=== PATIENT | female | born 1955 | race Caucasian/White ===

== ENCOUNTER 2020-02-04 13:15 | Outpatient (REF) | payer MEDICARE, SELFPAY ==
--- NOTE | 2020-02-04 | XR_ITS ---
EXAMINATION: XR CHEST CLINICAL INFORMATION: Shortness of breath COMPARISON: Chest radiographs 04/05/2017, 06/25/2012 TECHNIQUE: 2 views of the chest were obtained. FINDINGS: There is hyperinflation/COPD. The lungs are clear. There is no airspace consolidation, vascular congestion, groundglass opacity, or effusion. The costophrenic sulci are clear. The heart is normal in size. The hilar and mediastinal contours are normal. No acute bony abnormality. XR/XR chest 2V IMPRESSION: Hyperinflation/COPD. Lungs clear.
[2020-02-04 16:46] LABS: MANUAL DIFF FLAG NO
[2020-02-04 16:52] LABS: Basophils Percent Auto 0.5 % (0-2); Eosinophils Absolute Auto 0.1 X10*3/uL (0.0-0.4); Eosinophils Percent Auto 1.3 % (0-4); Hematocrit 40.1 % (37-47); Hemoglobin 12.8 g/dl (12.0-16.0); Imm Gran Abs Auto 0.02 X10*3/uL (0.00-0.03); Imm Gran Pct Auto 0.3 % (0.0-0.4); Lymphocytes Absolute Auto 1.5 X10*3/uL (1.2-4.9); Lymphocytes Percent Auto 20.2 % (20-40); Mean Corpuscular HGB Conc 31.9 g/dl (31.0-35.0); Mean Corpuscular Volume 100.3 fL (80-98); Mean Platelet Volume 10.4 fL (9.4-12.3); Monocytes Absolute Auto 0.9 X10*3/uL (0.1-1.2); Monocytes Percent Auto 11.6 % (2-11); Neutrophils Absolute Auto 4.9 X10*3/uL (2.0-8.3); Neutrophils Percent Auto 66.1 % (45-73); Platelet Count 358 X10*3/uL (160-400); Red Cell Distribution Width 13.3 % (11.0-16.0); White Blood Count 7.5 X10*3/uL (4.8-10.8)
[2020-02-04 17:18] LABS: Alanine Aminotransferase 17 U/L (0-31); Albumin Level 4.4 g/dL (3.5-5.0); Alkaline Phosphatase 76 U/L (39-117); Anion Gap 13 (12-20); Aspartate Amino Transferase 20 U/L (5-31); Bilirubin Total 0.3 mg/dL (0.0-1.0); Blood Urea Nitrogen 14 mg/dL (9-16); C Reactive Protein 0.04 mg/dL (< or = 0.50); Calcium 9.1 mg/dL (8.4-10.2); Carbon Dioxide 26 mmol/L (22-29); Chloride 101 mmol/L (96-108); Estimated Glomerular Filt Rate > 60; Glucose Random 73 mg/dL (60-115); Potassium 4.7 mmol/l (3.3-5.1); Sodium 135 mmol/L (135-145); Total Protein 6.7 g/dL (6.5-8.0)
[2020-02-04 17:21] LABS: Glucose Urine UA NEG (NEG); Leukocyte Esterase Urine NEG (NEG); Nitrite Urine NEG (NEG); PH 5.5 (5.0-8.0); Specific Gravity - Urine 1.025 (1.005-1.025); Urine Blood NEG (NEG); Urine Ketones NEG (NEG); Urine Protein NEG (NEG-TRACE)
[2020-02-04 17:27] LABS: Appearance Urine CLEAR; Color Urine YELLOW
== END 2020-02-04 13:16 | disposition home or self-care (01) ==
LOC: HO.HMGCLDS 13:15
PROVIDERS: PCP Internal Medicine; Visit Provider Internal Medicine
DX: R06.02 Shortness of breath (principal); Z86.2 Personal history of diseases of the blood and blood-forming organs and certain disorders involving the immune mechanism
CPT/HCPCS: 36415; 71046; 80053; 81003; 85025; 86140

== ENCOUNTER 2020-02-06 16:31 | Outpatient (REF) | payer MEDICARE, SELFPAY | END 2020-02-06 16:32 | disposition home or self-care (01) | LOC: HO.LNP 16:31 | PROVIDERS: Visit Provider Internal Medicine | DX: Z20.828 Contact with and (suspected) exposure to other viral communicable diseases (principal) | CPT/HCPCS: U0003 ==

== ENCOUNTER 2020-06-30 09:08 | Outpatient (REF) | payer MEDICARE, SELFPAY ==
[2020-06-30 11:17] LABS: MANUAL DIFF FLAG NO
[2020-06-30 11:24] LABS: Basophils Absolute Auto 0.1 X10*3/uL (0.0-0.2); Eosinophils Absolute Auto 0.1 X10*3/uL (0.0-0.4); Eosinophils Percent Auto 1.3 % (0-4); Hematocrit 40.6 % (37-47); Imm Gran Abs Auto 0.02 X10*3/uL (0.00-0.03); Imm Gran Pct Auto 0.3 % (0.0-0.4); Lymphocytes Absolute Auto 1.2 X10*3/uL (1.2-4.9); Lymphocytes Percent Auto 19.4 % (20-40); Mean Platelet Volume 10.5 fL (9.4-12.3); Monocytes Absolute Auto 0.6 X10*3/uL (0.1-1.2); Monocytes Percent Auto 9.2 % (2-11); Neutrophils Absolute Auto 4.2 X10*3/uL (2.0-8.3); Neutrophils Percent Auto 68.8 % (45-73); Platelet Count 350 X10*3/uL (160-400); Red Blood Count 4.06 X10*6/uL (4.20-5.50); Red Cell Distribution Width 13.5 % (11.0-16.0); White Blood Count 6.2 X10*3/uL (4.8-10.8)
[2020-06-30 11:53] LABS: Alanine Aminotransferase 19 U/L (0-31); Albumin Level 4.3 g/dL (3.5-5.0); Alkaline Phosphatase 79 U/L (39-117); Anion Gap 13 (12-20); Aspartate Amino Transferase 18 U/L (5-31); Bilirubin Total 0.6 mg/dL (0.0-1.0); Blood Urea Nitrogen 16 mg/dL (9-16); Calcium 9.7 mg/dL (8.4-10.2); Carbon Dioxide 26 mmol/L (22-29); Chloride 102 mmol/L (96-108); Cholesterol 217 mg/dL; Estimated Glomerular Filt Rate > 60; Glucose Fasting 85 mg/dL (60-99); HDL Cholesterol 80 mg/dL; LDL Cholesterol Calculated 123 mg/dl; Potassium 5.4 mmol/L (3.3-5.1); Sodium 136 mmol/L (135-145); Total Protein 6.7 g/dL (6.5-8.0); Triglycerides 70 mg/dL
[2020-06-30 12:18] LABS: TSH reflex Free T4 0.55 uIU/mL (0.32-4.0); Vitamin D 25-OH Total 11.4 ng/mL (>30)
[2020-06-30 12:37] LABS: Folate 9.3 ng/mL (> or = 4.0); Vitamin B12 331 pg/mL (200-900)
== END 2020-06-30 09:09 | disposition home or self-care (01) ==
LOC: HO.HMGCLDS 09:08
PROVIDERS: PCP Internal Medicine; Visit Provider Internal Medicine
DX: F32.9 Major depressive disorder, single episode, unspecified (principal); L65.9 Nonscarring hair loss, unspecified; R06.02 Shortness of breath; R53.83 Other fatigue; Z78.0 Asymptomatic menopausal state
CPT/HCPCS: 36415; 80053; 80061; 82306; 82607; 82746; 84443; 85025

== ENCOUNTER 2020-07-05 09:25 | Outpatient (REF) | payer MEDICARE, SELFPAY ==
[2020-07-05 11:53] LABS: Potassium 5.3 mmol/L (3.3-5.1)
== END 2020-07-05 09:26 | disposition home or self-care (01) ==
LOC: HO.HMGCLDS 09:25
PROVIDERS: PCP Internal Medicine; Visit Provider Internal Medicine
DX: E87.5 Hyperkalemia (principal)
CPT/HCPCS: 36415; 84132

== ENCOUNTER → 2020-07-14 09:14 | Outpatient (BNVA) | payer MEDICARE, SELFPAY | PROVIDERS: PCP Internal Medicine; Visit Provider Internal Medicine | DX: R06.02 Shortness of breath (principal) | CPT/HCPCS: 99202 ==

== ENCOUNTER 2020-07-21 09:10 | Outpatient (REF) | payer MEDICARE, SELFPAY ==
[2020-07-21 11:45] LABS: Potassium 4.7 mmol/L (3.3-5.1)
== END 2020-07-21 09:11 | disposition home or self-care (01) ==
LOC: HO.HMGCLDS 09:10
PROVIDERS: PCP Internal Medicine; Visit Provider Internal Medicine
DX: E87.5 Hyperkalemia (principal)
CPT/HCPCS: 36415; 84132

== ENCOUNTER → 2020-07-22 08:47 | Outpatient (REF) | payer MEDICARE, SELFPAY ==
--- NOTE | ~2020-07-22 | NM_ITS ---
EXERCISE MYOCARDIAL PERFUSION STUDY INDICATION: Shortness of breath, assess for coronary disease and ischemia TECHNIQUE: The patient was brought in for an exercise perfusion study on 07/22/2020. Patient performed exercise as per [facility] protocol and was injected 25 mCi of sestamibi once target heart rate was achieved. Images were obtained using the SPECT gamma camera interlaced with the gating device. Images were obtained in supine position. Resting perfusion study was performed on 07/25/2020. Patient was administered 25 mCi of sestamibi intravenously at rest. Images were then obtained in supine position. Total DLP 72mGy-cm. Images were processed with the software and compared side to side in short axis, horizontal long axis and vertical long axis views. FINDINGS: Raw images were reviewed. The stress perfusion study showed no significant perfusion abnormality. Both uncorrected as well as CT attenuation corrected images were reviewed. The gated study shows normal LV systolic function with calculated LVEF of > 70%. LV cavity is normal in size. The gated study shows normal wall thickening and contraction of segments. Resting study shows no significant perfusion abnormality. Gating at rest reveals normal wall motion with ejection fraction at 60%. The findings are consistent with no reversible or fixed perfusion abnormality. NM/NM cardiolite stress test IMPRESSION: 1. Myocardial perfusion imaging study shows normal myocardial perfusion. No evidence of any ischemia or infarction. 2. Gated LVEF is > 70% during stress and 60% during rest. 3. Transient ischemic dilatation not present. EKG component of the test reported separately.
--- NOTE | 2020-07-22 08:51 | CA_ITS ---
Acquisition Time: 2020-07-22 09:01:21 Total Exercise Time: 00:08:03 Test Indications: Dyspnea Medications: BUPROPION FLUOXETINE Protocol: LD Max HR: 133 BPM 86% of Pred: 153 BPM Max BP: 144/078 mmHG Max Work Load: 10.1 METS Exercise stress test using Ld protocol, total of 8 min 3 sec, METS 10.10, TAPHR up to 85%. Pt tolerated well, denies any anginal sx, EKG without any arrhythmias, no ischemic changes seen during exercise or in recovery period. Nuclear images to follow. Normotensive response to exercsie Test reviewed with Dr. Tellez. Referred By: Jesús Frazier Overread By: Elayne Patel NP
== END ==
LOC: HO.CARD 08:47
PROVIDERS: PCP Internal Medicine; Visit Provider Internal Medicine
DX: R06.02 Shortness of breath (principal)
CPT/HCPCS: 78452; 93016; 93017; 93018; A9500

== ENCOUNTER → 2020-08-27 09:29 | Outpatient (REF) | payer MEDICARE, SELFPAY ==
--- NOTE | 2020-08-27 09:31 | CA_ITS ---
Transthoracic Echocardiogram Patient (Last, First, Middle): Francoise Anyaa M Gender: Female Date of : 1955 Age: 65 Procedure Date: 08/27/2020 Procedure Type: Transthoracic Echocardiogram Location: OP Height: 160.02 cm Weight: 52.62 kg BSA: 1.53 m2 Heart Rate: bpm BP: 120 / 68 mmHg Radiologic Technology Instructor: STEFANI Referring MD: Jesús Frazier MD Production Control Technologist: Juve Tellez MD Symptoms: R06.02 - Shortness of breath Study Quality: Fair ECG Rhythm: Sinus Conclusions: - Essentially normal study Findings Left Ventricle Normal left ventricular size, thickness, and systolic function. The visually estimated ejection fraction is between 60-65%. Diastolic function is normal for age. Right Ventricle Normal right ventricular cavity size and systolic function. Atria Both atria are normal in size. There is no evidence of interatrial shunt. Aortic Valve The aortic valve structure and function is likely normal. There is no aortic valve stenosis. There is no aortic valve regurgitation. Mitral Valve Normal mitral valve structure and function. There is trace mitral valve regurgitation. There is no mitral valve stenosis. Pulmonic Valve The pulmonic valve was not well visualized. Tricuspid Valve There is trace tricuspid valve regurgitation. The right ventricular systolic pressure is normal. The right ventricular systolic pressure is 22 mmHg. Normal right atrial pressure. There is no evidence of pulmonary hypertension. Great Vessels All visible segments of the aorta are normal in size. The pulmonary artery was not well visualized. Venous The inferior vena cava is normal in size and collapses greater than 50% with inspiration. Pericardium/Pleural There is no evidence of pericardial effusion. Prior Study Comparison No prior study available for comparison. Measurements 2D Linear Measurements IVSd: 0.76 0.6-0.9/0.6-1.0 cm LVIDd: 4.11 3.9-5.3/4.2-5.9 cm LVIDd Index: 2.69 2.4-3.2/2.2-3.1 cm/m2 LVIDs: 2.18 2.0-3.6 cm LVPWd: 0.92 0.7-1.1 cm Ao Root: 3.10 2.1-3.5 cm LA Diam: 2.50 2.7-3.8/3.0-4.0 cm LAIDs Index: 1.63 1.5-2.3 cm/m2 LV Mass: 129.98 67-162/88-224 g LV Mass Index: 84.95 43-95/49-115 g/m2 LVOT Diam: 2.00 3.0+(-)1.3 cm 2D Systolic Function EF 4C: 63.90 >55% EF 2C: 75.50 >55% EF BiP: 71.10 >55% Mitral Valve MV Pk E: 0.53 MV PK A: 0.42 MV Decel Time: 157.00 E/A: 1.20 E'Lateral: 7.18 E'Medial: 6.20 E/E' Med: 8.50 E/E' Lat: 7.30 PHT: 46.00 MVA PHT: 4.78 Decel Cobb: 3.35 Aortic Valve AoV Pk Bhaskar: 1.29 AoV Pk Grad: 7.00 LVOT LVOT Pk Bhaskar: 1.24 LVOT Mn Bhaskar: 0.87 LVOT VTI: 0.25 LVOT Pk Grad: 6.00 LVOT Mn Grad: 3.00 LVOT Diam: 2.00 LVOT Area: 3.14 Diastolic Function MV Pk E: 0.53 MV Pk A: 0.42 E/A: 1.20 E'Medial: 6.20 E/E' Med: 8.50 E' Laterial: 7.18 E/E' Lat: 7.30 Tricuspid Valve TR Pk Bhaskar: 2.16 TR Pk Grad: 19.00 RA Press: 3.00 RVSP: 22.00 Great Vessels Aorta Ao Root-2D: 3.10 2.0-3.7 cm Ao Asc: 3.50 2.1-3.4 cm Updated in Other Vendor System with Status of Final Juve Tellez MD electronically signed on 08/28/2020 4:24:15 PM with status of Final
== END ==
LOC: HO.CARD 09:29
PROVIDERS: PCP Internal Medicine; Visit Provider Internal Medicine
DX: R06.02 Shortness of breath (principal)
CPT/HCPCS: 93306

== ENCOUNTER → 2020-09-02 13:39 | Outpatient (BNVA) | payer MEDICARE, SELFPAY | PROVIDERS: PCP Internal Medicine; Referring Provider Internal Medicine; Visit Provider Internal Medicine | DX: R06.02 Shortness of breath (principal); J44.9 Chronic obstructive pulmonary disease, unspecified | CPT/HCPCS: 99212 ==

== ENCOUNTER 2020-09-14 12:25 | Outpatient (REF) | payer MEDICARE, SELFPAY ==
--- NOTE | ~2020-09-14 | MM_ITS ---
EXAMINATION: BONE DENSITOMETRY CLINICAL INDICATION: Menopause. COMPARISON: Baseline BD dated 07/19/2009. TECHNIQUE: Using a [employer] DXA System (software version: 13.1) manufactured by [email or web address], dual-energy x-ray absorptiometry was performed of the lumbar spine and right hip. The images are of good technical quality. Summary results are attached. FINDINGS: AP SPINE L1-L3 (excluding L4): The data of L1-L4 has been changed to exclude the L4 vertebral body, because degenerative change at this level may cause overestimation of lumbar spine density. Current: BMD 0.925 g/cm2, Z-score 0.0, T-score -2.0, osteopenia, 9.2% decrease from baseline (<5% change is not significant). Baseline: BMD 1.019 g/cm2. RIGHT FEMUR, NECK: Current: BMD 0.625 g/cm2, Z-score -1.1, T-score -3.0, osteoporosis. Baseline: BMD 0.795 g/cm2. RIGHT FEMUR, TOTAL: Current: BMD 0.643 g/cm2, Z-score -1.3, T-score -2.9, osteoporosis, 22.5% decrease from baseline (<5% change is not significant). Baseline: BMD 0.830 g/cm2. IDENTIFIED RISK FACTORS: Menopause, height loss, history of fracture (adult). HISTORY OF FRACTURE: Hip. MEDICATIONS: Vitamin D. MM/XR DEXA axial skeleton IMPRESSION: 1. DIAGNOSIS: Severe osteoporosis based on the lowest T-score value of -3.0 in the femoral neck and history of fracture of the hip applying World Health Organization criteria. 2. 10-YEAR FRACTURE RISK PREDICTION, FRAX: Major osteoporotic fracture (clinical spine, forearm, hip or shoulder) 24.9%. Hip fracture 8.0%. 3. Treatment Recommendations: NOF guidelines recommend consideration for treatment in postmenopausal women and men age 50 and older presenting with the following: -A hip or vertebral (clinical or morphometric) fracture. -T-score less than or equal to -2.5 at the femoral neck or spine after appropriate evaluation to exclude secondary causes. -Low bone mass at the hip or spine and a 10-year fracture probability by FRAX of greater than or equal to 3% for hip fracture or greater than or equal to 20% for major osteoporotic fracture based on the [place] adapted WHO algorithm. 4. Other Recommendations: All treatment decisions require clinical judgment and consideration of individual patient factors, including patient preferences, comorbidities, previous drug use, risk factors not captured in the FRAX model (e.g. frailty, falls, vitamin D deficiency, increased bone turnover, interval significant decline in bone density) and possible under or overestimation of fracture risk by FRAX. Additional medical evaluation for secondary cause of low bone mineral density may be appropriate. FUTURE SCAN RECOMMENDATION: People with diagnosed cases of osteoporosis or at high risk for fracture should have regular bone mineral density tests. For patients eligible for Medicare, routine testing is allowed once every 2 years. The testing frequency can be increased to one year for patients who have rapidly progressing disease, those who are receiving or discontinuing medical therapy to restore bone mass, or have additional risk factors.
--- NOTE | ~2020-09-14 | MM_ITS ---
EXAMINATION: MM SCREENING DIGITAL BREAST TOMOSYNTHESIS, BILATERAL CLINICAL INFORMATION: Screening. Asymptomatic. The lifetime risk of breast cancer based on the Tyrer-Cuzick Model is 2.8%. COMPARISON: Mammography: 07/19/2009 TECHNIQUE: Digital breast tomosynthesis is performed in both the craniocaudal and mediolateral oblique views along with computer-aided detection (CAD). Synthesized 2D images are generated from the tomosynthesis. FINDINGS: The breasts are heterogeneously dense, which may obscure small masses (ACR BI-RADS breast composition Category c). There is a stable parenchymal pattern seen within the left breast. About the superior medial aspect of the right breast approximately 4 cm from nipple, there is a 9 mm irregularly-marginated density for which spot compression views recommended. MM/MM tomosynthesis screening BI IMPRESSION: Right breast density for further evaluation as described. ASSESSMENT: BI-RADS 0: Incomplete - Need Additional Imaging Evaluation RECOMMENDATION: 1. Additional views of the right breast. 2. Targeted ultrasound if warranted after review of the additional views. 3. Radiology department staff will contact the patient for additional imaging. This patient's information was entered into a reminder system with a target due date for their next mammogram.
== END 2020-09-14 12:26 | disposition home or self-care (01) ==
LOC: HO.MAMMO 12:25
PROVIDERS: PCP Internal Medicine; Visit Provider Internal Medicine
DX: Z12.31 Encounter for screening mammogram for malignant neoplasm of breast (principal); Z13.820 Encounter for screening for osteoporosis; M81.0 Age-related osteoporosis without current pathological fracture; Z78.0 Asymptomatic menopausal state; Z87.81 Personal history of (healed) traumatic fracture; Z79.899 Other long term (current) drug therapy
CPT/HCPCS: 77063; 77067; 77080

== ENCOUNTER 2020-09-21 08:57 | Outpatient (REF) | payer MEDICARE, SELFPAY ==
--- NOTE | 2020-09-21 17:42 | PFT_ITS ---
INDICATION: Shortness of breath. SPIROMETRY: The FEV1 to FVC 78% with an FEV1 of 2.49 L, which is 115% predicted and FVC of 3.19 L which is 112% predicted. No significant response to bronchodilators noted. Maximum voluntary ventilation 118% predicted. LUNG VOLUMES: Total lung capacity 106% predicted with residual volume of 92% predicted and an expiratory reserve volume of 177% predicted. DIFFUSION CAPACITY: DLCO 80% predicted. Flow volume loop appears to be completely normal. INTERPRETATION: No obstructive nor restrictive ventilatory defects identified. No significant response to bronchodilators noted. Normal maximum voluntary ventilation. Normal lung volumes and also normal diffusion capacity. Diffusion capacity is indeed low normal. If asthma is in the differential, methacholine challenge may be helpful in assessing for hyper-reactive airways, otherwise clinical correlation warranted. No significant findings to explain the patient's symptoms of shortness of breath. Eric Reyez MD MR/MODL / [id number]
== END 2020-09-21 08:58 | disposition home or self-care (01) ==
LOC: HO.RESP 08:57
PROVIDERS: PCP Internal Medicine; Visit Provider Internal Medicine
DX: R06.02 Shortness of breath (principal)
CPT/HCPCS: 94060; 94727; 94729

== ENCOUNTER 2020-09-27 11:00 | Outpatient (REF) | payer MEDICARE, SELFPAY ==
--- NOTE | ~2020-09-27 | US_ITS ---
Right breast ultrasound described in single combined report along with the diagnostic right mammography under accession number [id number].
--- NOTE | ~2020-09-27 | MM_ITS ---
EXAMINATION: MM DIAGNOSTIC DIGITAL BREAST TOMOSYNTHESIS, RIGHT US DIAGNOSTIC ULTRASOUND BREAST, RIGHT CLINICAL INFORMATION: Recall for irregular asymmetric density posterior upper right breast at screening. No known family history breast cancer. TC score 3%. COMPARISON: Mammography: 09/14/2020, and prior baseline exam 07/19/2009. TECHNIQUE: Digital breast tomosynthesis is performed. 2D images are generated from the tomosynthesis. The following views are obtained: 3-D spot CC x2, 3-D spot MLO, 3-D, 3-D spot ML. Ultrasound right breast is targeted to the 10:00 through 4:00 position. Grayscale imaging and color Doppler are performed without and with harmonics. FINDINGS: The breasts are heterogeneously dense, which may obscure small masses (ACR BI-RADS breast composition Category c). The additional views show persistent irregular asymmetric density on the MLO and ML views upper quadrant approximately 4 cm from nipple. There is no correlate appreciated on the CC views. The MLO finding is not seen with certainty on the remote prior and baseline exam 07/19/2009. Ultrasound right breast demonstrates no cystic or solid mass or architectural abnormality. No focal duct ectasia. No skin thickening or edema tracking in soft tissue planes. Results are discussed with the patient at time of visit. Patient has not had mammography between the baseline study 2009 and the follow-up screening exam 09/14/2020. Suggest attempt at tissue sampling using 3-D stereotactic biopsy for the asymmetric density on MLO and ML views. The location of the finding may be challenging and successful targeting may not be possible as discussed with the patient. Results and recommendation called to office ([place]) for Dr. Duke on 09/27/2020. MM/MM tomosynthesis added views R IMPRESSION: Persistent irregular asymmetric density upper quadrant limited to the MLO and ML views. Finding not seen with certainty on prior remote imaging 2009. No ultrasound correlate. ASSESSMENT: BI-RADS 4: Suspicious RECOMMENDATION: Attempt at tissue sampling using 3-D stereotactic biopsy.
== END 2020-09-27 11:01 | disposition home or self-care (01) ==
LOC: HO.MAMMO 11:00
PROVIDERS: Visit Provider Internal Medicine
DX: R92.2 Inconclusive mammogram (principal)
CPT/HCPCS: 76642; 77061; 77065

== ENCOUNTER 2020-10-07 09:44 | Outpatient (REF) | payer MEDICARE, SELFPAY ==
--- NOTE | ~2020-10-07 | MM_ITS ---
EXAMINATION: STEREOTACTIC TOMOSYNTHESIS-GUIDED TARGETING BREAST, RIGHT CLINICAL INFORMATION: Asymmetric density limited to MLO and ML views for stereotactic sampling. No ultrasound correlate. COMPARISON: Mammography 07/19/2009, 09/14/2020, 09/27/2020. TECHNIQUE/PROCEDURE: Informed consent was obtained from the patient after discussion of the benefits, risks, and alternatives to biopsy today. Patient appeared to understand. Gave opportunity for questions. Patient signed consent form. BIOPSY TABLE: [employer] Biopsy System. TARGETING: The right breast is targeted from medial approach x 3 views. Targeting also attempted from cranial caudal approach. The asymmetric density is not demonstrated. There is no target for tissue sampling. Case discussed with the patient. Management plan is for short interval follow-up right diagnostic mammography in 6 months. commercial lending assistant for Dr. Penny called with results and recommendation. MM/MM stereotactic biopsy RT IMPRESSION: No asymmetric density in area of recent concern for tissue sampling. ASSESSMENT: BI-RADS 3: Probably Benign RECOMMENDATION: Diagnostic right mammography in 6 months. This patient's information was entered into a reminder system with a target due date for their next mammogram.
== END 2020-10-07 09:45 | disposition home or self-care (01) ==
LOC: HO.MAMMO 09:44
PROVIDERS: Visit Provider Surgery
DX: R92.8 Other abnormal and inconclusive findings on diagnostic imaging of breast (principal)
CPT/HCPCS: 19081; 99202

== ENCOUNTER → 2020-10-11 13:53 | Outpatient (BNVA) | payer MEDICARE, SELFPAY | PROVIDERS: PCP Internal Medicine; Visit Provider Internal Medicine | DX: R06.02 Shortness of breath (principal); Z87.891 Personal history of nicotine dependence; Z79.899 Other long term (current) drug therapy | CPT/HCPCS: 99202 ==

== ENCOUNTER → 2021-01-06 10:27 | Outpatient (BNVA) | payer MEDICARE, SELFPAY | PROVIDERS: PCP Internal Medicine; Visit Provider Internal Medicine | DX: M81.0 Age-related osteoporosis without current pathological fracture (principal); E55.9 Vitamin D deficiency, unspecified; E87.5 Hyperkalemia; R53.83 Other fatigue; Z87.891 Personal history of nicotine dependence; Z78.0 Asymptomatic menopausal state; Z79.83 Long term (current) use of bisphosphonates; Z79.899 Other long term (current) drug therapy | CPT/HCPCS: 99202 ==

== ENCOUNTER 2021-01-10 08:52 | Outpatient (REF) | payer MEDICARE, SELFPAY ==
[2021-01-10 11:59] LABS: Alanine Aminotransferase 19 U/L (0-31); Albumin Level 4.4 g/dL (3.5-5.0); Alkaline Phosphatase 84 U/L (39-117); Anion Gap 14 (12-20); Aspartate Amino Transferase 21 U/L (5-31); Bilirubin Total 0.3 mg/dL (0.0-1.0); Blood Urea Nitrogen 14 mg/dL (9-16); Calcium 9.9 mg/dL (8.4-10.2); Carbon Dioxide 26 mmol/L (22-29); Chloride 104 mmol/L (96-108); Estimated Glomerular Filt Rate > 60; Glucose Random 83 mg/dL (60-115); Phosphorus 3.7 mg/dL (2.7-4.5); Potassium 5.3 mmol/L (3.3-5.1); Sodium 139 mmol/L (135-145); Total Protein 6.8 g/dL (6.5-8.0)
[2021-01-10 12:28] LABS: Free T4 (Free Thyroxine) 1.05 ng/dL (0.71-1.85); Thyroid Stimulating Hormone 1.78 uIU/mL (0.32-4.0); Vitamin D 25-OH Total 40.8 ng/mL (>30)
[2021-01-11 15:02] LABS: Prot Elec - Albumin 4.1 g/dL (3.8-4.8); Prot Elec - Alpha1 0.3 g/dL (0.2-0.3); Prot Elec - Alpha2 0.6 g/dL (0.5-0.9); Prot Elec - Beta 1 0.4 g/dL (0.4-0.6); Prot Elec - Beta 2 0.3 g/dL (0.2-0.5); Prot Elec - Gamma 0.8 g/dL (0.8-1.7); Prot Elec - Total Protein 6.5 g/dL (6.1-8.1)
[2021-01-11 15:26] LABS: Calcium (PTHI) 9.9 mg/dL (8.6-10.4); PTHI 41 pg/mL (14-64)
[2021-01-11 15:31] LABS: Calcium, Ionized 5.1 mg/dL (4.8-5.6)
[2021-01-14 11:55] LABS: Alkaline Phosphatase Bone 12.4 mcg/L (5.6-29.0)
[2021-01-17 21:42] LABS: N-Telopeptide 53 (see note); NTXCreaRU 59 mg/dL (20-275)
== END 2021-01-10 08:53 | disposition home or self-care (01) ==
LOC: HO.HMGCLDS 08:52
PROVIDERS: PCP Internal Medicine; Visit Provider Internal Medicine
DX: M81.0 Age-related osteoporosis without current pathological fracture (principal); E55.9 Vitamin D deficiency, unspecified
CPT/HCPCS: 36415; 80053; 82306; 82330; 82523; 83970; 84075; 84100; 84165; 84439; 84443

== ENCOUNTER 2021-01-11 07:53 | Outpatient (REF) | payer MEDICARE, SELFPAY ==
[2021-01-11 12:06] LABS: Anion Gap 11 (12-20); Blood Urea Nitrogen 12 mg/dL (9-16); Calcium 9.4 mg/dL (8.4-10.2); Carbon Dioxide 25 mmol/L (22-29); Chloride 104 mmol/L (96-108); Estimated Glomerular Filt Rate > 60; Glucose Random 81 mg/dL (60-115); Potassium 4.9 mmol/L (3.3-5.1); Sodium 135 mmol/L (135-145)
== END 2021-01-11 07:54 | disposition home or self-care (01) ==
LOC: HO.HMGCLDS 07:53
PROVIDERS: PCP Internal Medicine; Visit Provider Internal Medicine
DX: M81.0 Age-related osteoporosis without current pathological fracture (principal)
CPT/HCPCS: 36415; 80048

== ENCOUNTER 2021-01-12 09:33 | Outpatient (REF) | payer MEDICARE, SELFPAY ==
[2021-01-12 12:02] LABS: Creatinine, mg/dL 40.81
[2021-01-12 13:38] LABS: Creatinine, 24Hr Urine 0.8 G/Day (1.0-2.0); Total Volume 24 Hour Urine 2000 mL
[2021-01-14 17:36] LABS: Calcium, 24 Hr Urine 198 mg/24 h; Calcium/Creatinine Ratio 230 mg/g creat (30-275); Creatinine 24Hr Urine 0.86 g/24 h (0.50-2.15)
== END 2021-01-12 09:34 | disposition home or self-care (01) ==
LOC: HO.LNP 09:33
PROVIDERS: PCP Internal Medicine; Visit Provider Internal Medicine
DX: M81.0 Age-related osteoporosis without current pathological fracture (principal)
CPT/HCPCS: 82340; 82570

== ENCOUNTER → 2021-03-03 08:05 | Outpatient (BNVA) | payer MEDICARE, SELFPAY | PROVIDERS: PCP Internal Medicine; Visit Provider Internal Medicine | DX: M81.0 Age-related osteoporosis without current pathological fracture (principal); E55.9 Vitamin D deficiency, unspecified | CPT/HCPCS: Q3014 ==

== ENCOUNTER 2021-04-11 12:46 | Outpatient (REF) | payer MEDICARE, SELFPAY ==
--- NOTE | ~2021-04-11 | MM_ITS ---
EXAMINATION: MM DIAGNOSTIC DIGITAL BREAST TOMOSYNTHESIS, BILATERAL CLINICAL INFORMATION: Follow-up probable benign asymmetric density posterior 1:00 right breast. Planned right stereotactic biopsy aborted, lack of target 10/07/2020. The lifetime risk of breast cancer based on the Tyrer-Cuzick Model is 4%. COMPARISON: Mammography: 10/07/2020 (stereotactic biopsy aborted), ultrasound right breast 09/27/2020, mammography 09/27/2020, 09/14/2020 (BI-RADS 0), 07/19/2009. TECHNIQUE: Digital breast tomosynthesis is performed in both the craniocaudal and mediolateral oblique views along with computer-aided detection (CAD). Synthesized 2D images are generated from the tomosynthesis. Additional views are obtained: Right CC, spot left CC, spot left ML. FINDINGS: The breasts are heterogeneously dense, which may obscure small masses (ACR BI-RADS breast composition Category c). Parenchymal pattern is similar to recent prior exams. There is no developing density or interval mass or architectural abnormality. The asymmetry posterior 1:00 right breast appears less conspicuous when compared with 09/14/2020. There is no developing density or architectural changes. Parenchymal asymmetry central left breast is similar to prior exam. There are no abnormal calcifications. The axilla and skin contours are unremarkable. Right breast will be reassessed again in 6 months. Results are provided to the patient at time of visit by the technologist. MM/MM tomosynthesis diagnostic RT IMPRESSION: There are no significant changes from prior study. Asymmetric density posterior 1:00 right breast less conspicuous. ASSESSMENT: BI-RADS 3: Probably Benign RECOMMENDATION: Diagnostic right mammography in 6 months. This patient's information was entered into a reminder system with a target due date for their next mammogram.
== END 2021-04-11 12:47 | disposition home or self-care (01) ==
LOC: HO.MAMMO 12:46
PROVIDERS: PCP Internal Medicine; Visit Provider Surgery
DX: Z13.89 Encounter for screening for other disorder (principal)
CPT/HCPCS: 77061; 77065

== ENCOUNTER 2021-04-11 14:34 | Outpatient (REF) | payer MEDICARE, SELFPAY ==
[2021-04-11 16:56] LABS: Alanine Aminotransferase 16 U/L (0-31); Albumin Level 4.1 g/dL (3.5-5.0); Alkaline Phosphatase 91 U/L (39-117); Anion Gap 11 (12-20); Aspartate Amino Transferase 20 U/L (5-31); Bilirubin Total 0.2 mg/dL (0.0-1.0); Blood Urea Nitrogen 12 mg/dL (9-16); Calcium 9.7 mg/dL (8.4-10.2); Carbon Dioxide 27 mmol/L (22-29); Chloride 106 mmol/L (96-108); Estimated Glomerular Filt Rate > 60; Glucose Random 95 mg/dL (60-115); Phosphorus 3.1 mg/dL (2.7-4.5); Potassium 4.9 mmol/L (3.3-5.1); Sodium 139 mmol/L (135-145); Total Protein 6.7 g/dL (6.5-8.0)
[2021-04-11 17:19] LABS: Vitamin D 25-OH Total 28.2 ng/mL (>30)
[2021-04-12 14:20] LABS: Calcium (PTHI) 9.8 mg/dL (8.6-10.4); PTHI 50 pg/mL (14-64)
== END 2021-04-11 14:35 | disposition home or self-care (01) ==
LOC: HO.HMGCLDS 14:34
PROVIDERS: PCP Internal Medicine; Visit Provider Internal Medicine
DX: M81.0 Age-related osteoporosis without current pathological fracture (principal); R92.8 Other abnormal and inconclusive findings on diagnostic imaging of breast; E55.9 Vitamin D deficiency, unspecified
CPT/HCPCS: 36415; 77061; 77065; 80053; 82306; 83970; 84100

== ENCOUNTER 2021-04-14 08:44 | Outpatient (REF) | payer MEDICARE, SELFPAY ==
[2021-04-14 11:39] LABS: Total Volume 24 Hour Urine 1975 mL
[2021-04-14 12:05] LABS: Creatinine, 24Hr Urine 0.9 G/Day (1.0-2.0); Creatinine, mg/dL 46.67
[2021-04-15 18:36] LABS: Calcium, 24 Hr Urine 132 mg/24 h; Calcium/Creatinine Ratio 134 mg/g creat (30-275); Creatinine 24Hr Urine 0.99 g/24 h (0.50-2.15)
== END 2021-04-14 08:45 | disposition home or self-care (01) ==
LOC: HO.HMGCLNP 08:44
PROVIDERS: Visit Provider Internal Medicine
DX: M81.0 Age-related osteoporosis without current pathological fracture (principal)
CPT/HCPCS: 82340; 82570

== ENCOUNTER → 2021-04-18 11:41 | Outpatient (BNVA) | payer MEDICARE, SELFPAY | PROVIDERS: PCP Internal Medicine; Visit Provider Internal Medicine | DX: M81.0 Age-related osteoporosis without current pathological fracture (principal); E55.9 Vitamin D deficiency, unspecified | CPT/HCPCS: 99212 ==

== ENCOUNTER 2021-08-04 08:14 | Outpatient (REF) | payer MEDICARE, SELFPAY ==
[2021-08-04 12:13] LABS: Vitamin D 25-OH Total 25.9 ng/mL (>30)
[2021-08-04 12:22] LABS: Alanine Aminotransferase 21 U/L (0-31); Alkaline Phosphatase 74 U/L (39-117); Anion Gap 9 (12-20); Aspartate Amino Transferase 18 U/L (5-31); Bilirubin Total 0.4 mg/dL (0.0-1.0); Blood Urea Nitrogen 12 mg/dL (9-16); Calcium 9.7 mg/dL (8.4-10.2); Carbon Dioxide 26 mmol/L (22-29); Chloride 105 mmol/L (96-108); Estimated Glomerular Filt Rate > 60; Glucose Random 95 mg/dL (60-115); Phosphorus 3.7 mg/dL (2.7-4.5); Sodium 135 mmol/L (135-145); Total Protein 6.2 g/dL (6.5-8.0)
[2021-08-05 13:19] LABS: Calcium (PTHI) 9.4 mg/dL (8.6-10.4); PTHI 45 pg/mL (16-77)
[2021-08-06 05:10] LABS: Lyme Abs Screen <0.90 index
== END 2021-08-04 08:15 | disposition home or self-care (01) ==
LOC: HO.HMGCLDS 08:14
PROVIDERS: PCP Internal Medicine; Visit Provider Internal Medicine
DX: R21 Rash and other nonspecific skin eruption (principal); M81.0 Age-related osteoporosis without current pathological fracture; E55.9 Vitamin D deficiency, unspecified
CPT/HCPCS: 36415; 80053; 82306; 83970; 84100; 86617; 86618

== ENCOUNTER → 2021-08-29 10:08 | Outpatient (BNVA) | payer MEDICARE, SELFPAY | PROVIDERS: PCP Internal Medicine; Visit Provider Internal Medicine | DX: M81.0 Age-related osteoporosis without current pathological fracture (principal); E55.9 Vitamin D deficiency, unspecified | CPT/HCPCS: Q3014 ==

== ENCOUNTER 2021-10-11 13:26 | Outpatient (REF) | payer MEDICARE, SELFPAY ==
--- NOTE | ~2021-10-11 | MM_ITS ---
EXAMINATION: MM DIAGNOSTIC DIGITAL BREAST TOMOSYNTHESIS, RIGHT CLINICAL INFORMATION: Follow-up probable benign asymmetric fibroglandular tissue posterior 1:00 right breast, ultrasound occult. Finding beyond stereotactic targeting [id number] 10/07/2020. The lifetime risk of breast cancer based on the Tyrer-Cuzick Model is 3%. COMPARISON: Mammography: 04/11/2021, 10/07/2020, 09/27/2020, 09/14/2020 (BI-RADS 0), 07/19/2009 (baseline). TECHNIQUE: Digital breast tomosynthesis is performed in both the craniocaudal and mediolateral oblique views along with computer-aided detection (CAD). Synthesized 2D images are generated from the tomosynthesis. FINDINGS: The breasts are heterogeneously dense, which may obscure small masses (ACR BI-RADS breast composition Category c). Breast tissue composition borders on average fibroglandular. The asymmetric fibroglandular tissue is likely present on remote baseline exam 2009, particularly visible on the prior exaggerated CC view. There is no developing density or architectural abnormality from more recent studies. The remainder of the right breast is unremarkable. Results are provided to the patient at time of visit by the technologist. MM/MM tomosynthesis diagnostic RT IMPRESSION: -No significant changes from recent prior studies. -Suspect chronic finding, likely present in 2009. ASSESSMENT: BI-RADS 3: Probably Benign RECOMMENDATION: Diagnostic mammography at time of annual bilateral mammography, due in 6 months. This patient's information was entered into a reminder system with a target due date for their next mammogram.
== END 2021-10-11 13:27 | disposition home or self-care (01) ==
LOC: HO.MAMMO 13:26
PROVIDERS: PCP Internal Medicine; Visit Provider Surgery
DX: R92.8 Other abnormal and inconclusive findings on diagnostic imaging of breast (principal)
CPT/HCPCS: 77061; 77065

== ENCOUNTER 2021-11-07 11:04 | Outpatient (REF) | payer MEDICARE, SELFPAY ==
[2021-11-07 13:52] LABS: Alanine Aminotransferase 18 U/L (0-31); Albumin Level 3.9 g/dL (3.5-5.0); Alkaline Phosphatase 80 U/L (39-117); Anion Gap 14 (12-20); Aspartate Amino Transferase 18 U/L (5-31); Bilirubin Total 0.4 mg/dL (0.0-1.0); Blood Urea Nitrogen 15 mg/dL (9-16); Calcium 9.7 mg/dL (8.4-10.2); Carbon Dioxide 26 mmol/L (22-29); Chloride 103 mmol/L (96-108); Estimated Glomerular Filt Rate > 60; Glucose Random 91 mg/dL (60-115); Potassium 4.4 mmol/L (3.3-5.1); Sodium 139 mmol/L (135-145); Total Protein 6.3 g/dL (6.5-8.0)
[2021-11-07 14:13] LABS: Vitamin D 25-OH Total 29.1 ng/mL (>30)
[2021-11-08 19:27] LABS: Calcium (PTHI) 9.8 mg/dL (8.6-10.4); PTHI 31 pg/mL (16-77)
== END 2021-11-07 11:05 | disposition home or self-care (01) ==
LOC: HO.10HDL 11:04
PROVIDERS: Visit Provider Internal Medicine
DX: M81.0 Age-related osteoporosis without current pathological fracture (principal); E55.9 Vitamin D deficiency, unspecified
CPT/HCPCS: 36415; 80053; 82306; 83970; 99212

== ENCOUNTER 2021-11-16 10:49 | Outpatient (REF) | payer MEDICARE, SELFPAY | END 2021-11-16 10:50 | disposition home or self-care (01) | LOC: HO.MDS 10:49 | PROVIDERS: PCP Internal Medicine; Visit Provider Internal Medicine | DX: M81.0 Age-related osteoporosis without current pathological fracture (principal) ==

== ENCOUNTER 2021-11-16 11:59 | Emergency (ER) | payer MEDICARE, SELFPAY ==
[2021-11-16 12:07] VITALS: BP 117/55; PULSE 57; RESP 14; TEMP 36.9; O2SAT 99; BMI 20.3
--- NOTE | 2021-11-16 12:09 | ED_ITS ---
HPI - Weakness General Chief complaint: General Medical Stated complaint: Low Blood Pressure Time Seen by Provider: 11/16/21 12:08 Source: patient Mode of arrival: ambulatory Limitations: no limitations History of Present Illness HPI Narrative: patient was to get an IV infusion for her osteoperosis, after the IV was placed she nearly passed out so they sent her to the ED. Feeling better now, she did eat this morning. Complaint: generalized weakness Onset (ago): minute(s) Location: generalized Severity: severe Related Data Home Medications Medication Instructions Recorded Confirmed bupropion HCl 300 mg 24 hr tablet, 300 mg PO BEDTIME 06/30/20 11/07/21 extended release fluoxetine 40 mg capsule 40 mg PO DAILY 06/30/20 11/07/21 cholecalciferol (vitamin D3) 50 50 mcg PO DAILY 01/06/21 11/07/21 mcg (2,000 unit) capsule (Vitamin D3) calcium carbonate [Calcium 500] PO DAILY 01/20/21 11/07/21 Previous Rx's Medication Instructions Recorded denosumab 60 mg/mL subcutaneous 60 mg subcut [id number] #1 mL 09/22/21 syringe (Prolia) Allergies Allergy/AdvReac Type Severity Reaction Status Date / Time No Known Allergies Allergy Verified 11/07/21 10:48 [No Known Allergies*] Review of Systems Constitutional: Constitutional: Reports no additional constitutional complaints Eyes: Eyes: Reports no additional eye complaints ENT: Denies dizziness Cardiovascular: Cardiovascular: Reports no additional cardiovascular com plaints Respiratory: Respiratory: Reports as per HPI Gastrointestinal: Gastrointestinal: Reports no additional gastrointestinal complaints Genitourinary: Genitourinary: Reports no additional female genitourinary complaints Musculoskeletal: Musculoskeletal: Reports no additional musculoskeletal complaints Integumentary/Breasts: Skin/Breast: Denies rash Neurologic: Reports system reviewed and no additional complaints, except as documented, Denies dizziness and Denies Sensory deficit (Neuro) Psychiatric: Psychiatric: Denies anxiety PMFSH Past Medical History Medical History Colon cancer screening Depression Memory change Osteoporosis Severe osteopetrosis Shortness of breath on exertion Thinning hair Vitamin D deficiency Surgical History History of repair of left hip joint Hx of appendectomy Hx of right knee surgery Family History Family History Father CAD (coronary artery disease) Mother Essential hypertension Osteoporosis Paternal Aunt Depression Sister Essential hypertension Osteoporosis Family/Other Breast cancer Other Mental health disorder Social History Social History Housing: Apartment Alcohol intake: current Alcohol intake frequency: holidays/special occasions only Patient Tobacco Use Status: Former Tobacco user Quit Date: Over 20 years ago Tobacco use type: Cigarette Years Smoked: 15 e-Cigarette/Vaping Use: Never Used Second Hand Smoke Exposure: No Use of substances other than those prescribed or required for medical reasons: No Substance Use Type: Marijuana Advance Directives: No Advance Directives Information Provided: No service: No Current occupational status: employed and retired Cognitive needs: No Hearing needs: No Vision needs: No Physical Exam Vital Signs: Vital Signs: Last Vital Signs Temp 98.5 F 11/16/21 12:07 Pulse 57 11/16/21 12:07 Resp 14 11/16/21 12:07 BP 117/55 L 11/16/21 12:07 Pulse Ox 99 11/16/21 12:07 O2 Del Method 11/16/21 12:07 BMI result Body Mass Index 20.3 Const: General: healthy appearing Nutritional Appearance: average body habitus Orientation/consciousness: oriented to person and patient oriented x3 Limitations: no limitations HEENT: Head: Yes normal to inspection Ears: external ears normal General nose exam: Normal external nose present Mouth: Normal oral and palatal mucosa present and oropharynx normal Throat: Yes posterior oropharynx normal Eyes: General: appearance normal, both eyes and all related structures Neck: Other: supple Neck: Yes normal visual inspection Chest: Chest palpation & inspection: normal inspection of the chest Resp: Auscultation: clear to auscultation bilaterally Cardio: Jugular venous distension: no JVD Rate: regular rate Rhythm: regular rhythm Heart sounds: S1 normal heart sound present and S2 normal heart sound present GI: Inspection: Yes normal to inspection Palpation (GI): Soft to palpation, nontender and No hepatosplenomegaly present Auscultation: normal bowel sounds : General: Yes no CVA tenderness Back/Spine/Pelvis: Back: no CVA tenderness Skin: General skin exam: no rashes or lesions noted Neuro: General: oriented to person and patient oriented x3 Cranial nerves: Yes CN's II-XII intact bilaterally Motor exam (neuro): 5/5 motor strength present throughout Sensory Exam: No Sensory deficit (Neuro) Extrem: General: Yes normal to inspection Psych: Appearance: grossly normal Course Reevaluation(s) Reevaluation #1: blood pressure is up, patient looks well will dc home Time: 13:16 MDM - Weakness Lab Data Result diagrams: 11/16/21 12:30 11/16/21 12:30 Labs: Lab Results 11/16/21 11/16/21 Range/Units 12:30 12:30 WBC 9.4 (4.8-10.8) X10*3/uL RBC 3.73 L (4.20-5.50) X10*6/uL Hgb 11.8 L (12.0-16.0) g/dl Hct 36.3 L (37.0-47.0) % MCV 97.3 (80.0-98.0) fL MCH 31.6 (27.0-33.0) pg MCHC 32.5 (31.0-35.0) g/dl RDW 13.5 (11.0-16.0) % Plt Count 307 (160-400) X10*3/uL MPV 9.8 (9.4-12.3) fL Immature Gran % (Auto) 0.2 (0.0-0.4) % Neut % (Auto) 73.0 (45-73) % Lymph % (Auto) 18.8 L (20-40) % [place] % (Auto) 6.5 (2-11) % Eos % (Auto) 1.0 (0-4) % Baso % (Auto) 0.5 (0-2) % Lymph # (Auto) 1.8 (1.2-4.9) X10*3/uL [place] # (Auto) 0.6 (0.1-1.2) X10*3/uL Eos # (Auto) 0.1 (0.0-0.4) X10*3/uL Baso # (Auto) 0.1 (0.0-0.2) X10*3/uL Abs Immat Gran (auto) 0.02 (0.00-0.03) X10*3/uL Absolute Neuts (auto) 6.8 (2.0-8.3) x10*3/uL Absolute Nucleated RBC 0.000 (0.0-0.012) X10*3/uL Nucleated RBC % (auto) 0.0 (0.0-0.2) /100WBC Sodium 139 (135-145) mmol/L Potassium 4.2 (3.3-5.1) mmol/L Chloride 104 (96-108) mmol/L Carbon Dioxide 26 (22-29) mmol/L Anion Gap 13 (12-20) BUN 13 (9-16) mg/dL Creatinine 0.69 (0.5-1.4) mg/dL Estim Creat Clear Calc 64.2 Estimated GFR > 60 Random Glucose 93 (60-115) mg/dL Calcium 9.1 D (8.4-10.2) mg/dL ECG Data Attestation: I personally reviewed and interpreted this ECG as follows: Interpretation: normal sinus rate 54, no st or twave changes Discharge Plan Discharge Clinical Impression: Vaso vagal episode, Near syncope Patient Disposition: Home, Self-Care Instructions: Near Syncope (ED) Prescriptions: No Action Prolia 60 mg/mL syringe 60 mg subcut [id number] Qty: 1 2RF bupropion HCl 300 mg tablet extended release 24 hr 300 mg PO BEDTIME fluoxetine 40 mg capsule 40 mg PO DAILY calcium carbonate [Calcium 500] PO DAILY cholecalciferol (vitamin D3) [Vitamin D3] 50 mcg (2,000 unit) capsule 50 mcg PO DAILY Referrals: Sophie Duke MD [Primary Care Provider] - 1 week Interventions: ED Discharge Assessment Last Done: 11/16/21 13:39 Discharge Date/Time: 11/16/21 13:39
--- NOTE | 2021-11-16 12:13 | ECG_ITS ---
Test Reason : NEAR SYNCOPE Blood Pressure : / mmHG Vent. Rate : 054 BPM Atrial Rate : 054 BPM P-R Int : 192 ms QRS Dur : 088 ms QT Int : 450 ms P-R-T Axes : 074 048 059 degrees QTc Int : 426 ms Sinus bradycardia Otherwise normal ECG When compared with ECG of 15-JUN-2012 12:22, Nonspecific T wave abnormality no longer evident in Inferior leads Heart rate has decreased Referred By: Yosi Del Angel Electronically Signed By:ADE BOWEN
[2021-11-16] MEDS: 0.9 % Sodium Chloride 500 ML 999 ML IV (12:17)
[2021-11-16 12:33] LABS: MANUAL DIFF FLAG NO
[2021-11-16 12:34] LABS: Basophils Absolute Auto 0.1 X10*3/uL (0.0-0.2); Basophils Percent Auto 0.5 % (0-2); Eosinophils Absolute Auto 0.1 X10*3/uL (0.0-0.4); Hematocrit 36.3 % (37.0-47.0); Hemoglobin 11.8 g/dl (12.0-16.0); Imm Gran Abs Auto 0.02 X10*3/uL (0.00-0.03); Imm Gran Pct Auto 0.2 % (0.0-0.4); Lymphocytes Absolute Auto 1.8 X10*3/uL (1.2-4.9); Lymphocytes Percent Auto 18.8 % (20-40); Mean Corpuscular HGB Conc 32.5 g/dl (31.0-35.0); Mean Corpuscular Hemoglobin 31.6 pg (27.0-33.0); Mean Corpuscular Volume 97.3 fL (80.0-98.0); Mean Platelet Volume 9.8 fL (9.4-12.3); Monocytes Absolute Auto 0.6 X10*3/uL (0.1-1.2); Monocytes Percent Auto 6.5 % (2-11); Neutrophils Absolute Auto 6.8 x10*3/uL (2.0-8.3); Platelet Count 307 X10*3/uL (160-400); Red Blood Count 3.73 X10*6/uL (4.20-5.50); Red Cell Distribution Width 13.5 % (11.0-16.0); White Blood Count 9.4 X10*3/uL (4.8-10.8)
[2021-11-16 12:49] LABS: Anion Gap 13 (12-20); Blood Urea Nitrogen 13 mg/dL (9-16); Calcium 9.1 mg/dL (8.4-10.2); Carbon Dioxide 26 mmol/L (22-29); Chloride 104 mmol/L (96-108); Creatinine Clr Calc Pharmacy 64.2; Estimated Glomerular Filt Rate > 60; Glucose Random 93 mg/dL (60-115); Potassium 4.2 mmol/L (3.3-5.1); Sodium 139 mmol/L (135-145)
== END 2021-11-16 13:39 | disposition home or self-care (01) ==
PROVIDERS: Emergency Provider Emergency Medicine; PCP Internal Medicine
DX: I95.9 Hypotension, unspecified (principal); Z79.899 Other long term (current) drug therapy; Z87.891 Personal history of nicotine dependence
CPT/HCPCS: 36415; 80048; 85025; 93005; 96360; 99284

== ENCOUNTER 2022-03-07 06:04 | Outpatient (REF) | payer MEDICARE, SELFPAY ==
[2022-03-07 13:54] LABS: Cholesterol 205 mg/dL; HDL Cholesterol 66 mg/dL; LDL Cholesterol Calculated 121 mg/dl; Triglycerides 90 mg/dL; Vitamin D 25-OH Total 27.7 ng/mL (>30)
== END 2022-03-07 06:05 | disposition home or self-care (01) ==
LOC: HO.HMGCLDS 06:04
PROVIDERS: PCP Internal Medicine; Visit Provider Internal Medicine
DX: I71.21 Aneurysm of the ascending aorta, without rupture (principal); E55.9 Vitamin D deficiency, unspecified
CPT/HCPCS: 36415; 80061; 82306

== ENCOUNTER 2022-05-08 08:03 | Outpatient (REF) | payer MEDICARE, SELFPAY ==
[2022-05-08 11:22] LABS: Alanine Aminotransferase 21 U/L (0-31); Albumin Level 3.8 g/dL (3.5-5.0); Alkaline Phosphatase 88 U/L (39-117); Anion Gap 13 (12-20); Aspartate Amino Transferase 18 U/L (5-31); Bilirubin Total 0.3 mg/dL (0.0-1.0); Blood Urea Nitrogen 17 mg/dL (9-16); Calcium 9.5 mg/dL (8.4-10.2); Carbon Dioxide 26 mmol/L (22-29); Chloride 104 mmol/L (96-108); Estimated Glomerular Filt Rate > 60; Glucose Random 81 mg/dL (60-115); Phosphorus 3.9 mg/dL (2.7-4.5); Potassium 4.9 mmol/L (3.3-5.1); Sodium 138 mmol/L (135-145)
[2022-05-09 14:14] LABS: Calcium (PTHI) 9.8 mg/dL (8.6-10.4); PTHI 24 pg/mL (16-77)
== END 2022-05-08 08:04 | disposition home or self-care (01) ==
LOC: HO.HMGCLDS 08:03
PROVIDERS: PCP Internal Medicine; Visit Provider Internal Medicine
DX: M81.0 Age-related osteoporosis without current pathological fracture (principal); E55.9 Vitamin D deficiency, unspecified
CPT/HCPCS: 36415; 80053; 82306; 83970; 84100

== ENCOUNTER 2022-05-09 09:00 | Outpatient (REF) | payer MEDICARE, SELFPAY ==
[2022-05-13 14:18] LABS: N-Telopeptide 68 (see note); NTXCreaRU 95 mg/dL (20-275)
== END 2022-05-09 09:01 | disposition home or self-care (01) ==
LOC: HO.HMGCLNP 09:00
PROVIDERS: Visit Provider Internal Medicine
DX: M81.0 Age-related osteoporosis without current pathological fracture (principal)
CPT/HCPCS: 82523

== ENCOUNTER → 2022-05-15 07:49 | Outpatient (BNVA) | payer MEDICARE, SELFPAY | PROVIDERS: PCP Internal Medicine; Visit Provider Internal Medicine | DX: M81.0 Age-related osteoporosis without current pathological fracture (principal); E55.9 Vitamin D deficiency, unspecified | CPT/HCPCS: 99212 ==

== ENCOUNTER 2022-05-25 08:50 | Outpatient (REF) | payer MEDICARE, SELFPAY ==
[2022-05-25 12:33] LABS: Albumin Level 3.9 g/dL (3.5-5.0); Blood Urea Nitrogen 16 mg/dL (9-16); Calcium 9.3 mg/dL (8.4-10.2); Estimated Glomerular Filt Rate > 60
[2022-05-30 14:53] LABS: Calcium (PTHI) 9.4 mg/dL (8.6-10.4); PTHI 69 pg/mL (16-77)
== END 2022-05-25 08:51 | disposition home or self-care (01) ==
LOC: HO.HMGCLDS 08:50
PROVIDERS: PCP Internal Medicine; Visit Provider Internal Medicine
DX: M81.0 Age-related osteoporosis without current pathological fracture (principal)
CPT/HCPCS: 36415; 82040; 82310; 82565; 83970; 84520

== ENCOUNTER 2022-05-29 10:34 | Outpatient (REF) | payer MEDICARE, SELFPAY | END 2022-05-29 10:35 | disposition home or self-care (01) | LOC: HO.MDS 10:34 | PROVIDERS: PCP Internal Medicine; Visit Provider Internal Medicine | DX: M81.0 Age-related osteoporosis without current pathological fracture (principal); I71.40 Abdominal aortic aneurysm, without rupture, unspecified; E55.9 Vitamin D deficiency, unspecified; Z12.11 Encounter for screening for malignant neoplasm of colon | CPT/HCPCS: 96365; 99202; J3380; J3489 ==

== ENCOUNTER 2022-06-15 08:58 | Outpatient (REF) | payer MEDICARE, SELFPAY ==
--- NOTE | ~2022-06-15 | MM_ITS ---
EXAMINATION: MM DIAGNOSTIC DIGITAL BREAST TOMOSYNTHESIS, BILATERAL CLINICAL INFORMATION: Due for yearly. Also follow-up probable benign asymmetric fibroglandular tissue posterior 1:00 right breast, ultrasound occult. No known family history breast cancer. The lifetime risk of breast cancer based on the Tyrer-Cuzick Model is 3%. COMPARISON: Prior breast imaging exams dating back to 07/19/2009. TECHNIQUE: Digital breast tomosynthesis is performed in both the craniocaudal and mediolateral oblique views along with computer-aided detection (CAD). Synthesized 2D images are generated from the tomosynthesis. FINDINGS: The breasts are heterogeneously dense, which may obscure small masses (ACR BI-RADS breast composition Category c). Breast parenchymal pattern is similar to prior studies and there is no developing density or significant mass or architectural abnormality. Minor parenchymal asymmetries are stable. Fibroglandular tissue posterior 1:00 is similar to prior studies. This is considered to be benign. There is a small benign stable nodule mid outer left breast likely intramammary node. Scattered vascular calcifications again noted. The axilla is unremarkable. Skin contours are smooth. No significant changes. Results are discussed with the patient at time of visit. MM/MM tomosynthesis diagnostic BI IMPRESSION: No mammographic evidence of malignancy. ASSESSMENT: BI-RADS 2: Benign RECOMMENDATION: Routine annual mammography screening. This patient's information was entered into a reminder system with a target due date for their next mammogram.
== END 2022-06-15 08:59 | disposition home or self-care (01) ==
LOC: HO.MAMMO 08:58
PROVIDERS: PCP Internal Medicine; Visit Provider Internal Medicine
DX: N64.89 Other specified disorders of breast (principal)
CPT/HCPCS: 77062; 77066

== ENCOUNTER 2022-08-04 14:27 | Outpatient (REF) | payer MEDICARE, SELFPAY ==
[2022-08-04 18:07] LABS: Influenza A PCR NEGATIVE (Negative); Influenza B PCR NEGATIVE (Negative); Resp Syncy Virus RNA Qual PCR NEGATIVE (Negative); SARS COV2 PCR INHOUSE NEGATIVE (Negative)
== END 2022-08-04 14:28 | disposition home or self-care (01) ==
LOC: HO.LAB 14:27
PROVIDERS: Visit Provider Physician Assistant Medical
DX: Z20.822 Contact with and (suspected) exposure to COVID-19 (principal); R09.89 Other specified symptoms and signs involving the circulatory and respiratory systems
CPT/HCPCS: 0241U

== ENCOUNTER 2022-08-16 08:37 | Day surgery (SDC) | payer MEDICARE, SELFPAY ==
[2022-08-10 15:45] VITALS: BMI 20.7
[2022-08-11 15:47] VITALS: BMI 20.1
[2022-08-16] VITALS (8 sets, daily range): BP systolic 81–128; BP diastolic 39–63; PULSE 62–66; RESP 16; TEMP 36.2–36.3; O2SAT 97–99
--- NOTE | 2022-08-16 09:18 | P.CONAN_ITS ---
[facility] Active Problems Active Problems: All Active Problems (Updated 08/11/22 @ 15:49 by Mary Watters, RN) URI (upper respiratory infection) (Acute) Ascending aortic aneurysm (Acute) Vitamin D deficiency (Acute) Osteoporosis (Acute) Colon cancer screening (Acute) Depression (Acute) Past Medical History Medical History (Updated 08/11/22 @ 15:49 by Mary Watters, RN) Ascending aortic aneurysm Colon cancer screening Depression Memory change Osteoporosis Shortness of breath on exertion Thinning hair Vitamin D deficiency Family History Family History Father CAD (coronary artery disease) Mother Essential hypertension Osteoporosis Paternal Aunt Depression Sister Essential hypertension Osteoporosis Family/Other Breast cancer Other Mental health disorder Family history of problems with anesthesia: No Surgical History Surgical History H/O colonoscopy History of repair of left hip joint Hx of appendectomy Hx of right knee surgery History of Problems with Anesthesia: No Social History Social History Housing: Apartment Are you a primary family day care provider to a significant other at home: No Do you presently have visiting nurse or other home services: No Alcohol intake: current Alcohol intake frequency: holidays/special occasions only Patient Tobacco Use Status: Former Tobacco user Quit Date: 1999 Tobacco use type: Cigarette Years Smoked: 15 e-Cigarette/Vaping Use: Never Used Second Hand Smoke Exposure: No Substance Use Type: Marijuana Have you been hit, kicked, punched, or otherwise hurt by someone within the past year? If so, by whom?: No Are you DNR?: No Advance Directives: No Advance Directives Information Provided: Yes Advance Directives on File: No Nutrition Risks: No Nutritional Risk service: No Current occupational status: employed and retired Cognitive needs: No Hearing needs: No Vision needs: No Meds Allergies Allergy/AdvReac Type Severity Reaction Status Date / Time No Known Allergies Allergy Verified 08/11/22 15:47 [No Known Allergies*] Home Medications Medication Instructions Recorded Confirmed Last Taken Type bupropion HCl 300 mg 24 hr tablet, 450 mg PO DAILY 06/30/20 08/11/22 Unknown History extended release fluoxetine 40 mg capsule 40 mg PO DAILY 06/30/20 08/11/22 Unknown History Exam Exam Date and Time: August 16, 2022 0918 Height,Weight and Vital Signs: Height 5 ft 2 in Weight 49.895 kg Last Vital Signs Temp 97.2 F 08/16/22 08:47 Pulse 63 08/16/22 08:47 Resp 16 08/16/22 08:47 BP 128/63 08/16/22 08:47 Pulse Ox 97 08/16/22 08:47 O2 Del Method Room Air 08/16/22 08:47 Airway Mallampati Class: III TM Dist: >3cm Neck ROM: Full Assessment and Plan Assessment Anesthesia Assessment: Anesthesia Plan Discussed and Chart Reviewed Final Anesthetic Review Family History of Problems with Anesthesia: No History of Problems with Anesthesia: No NPO: Yes ASA Class: III Final Preanesthetic Review: No Changes in Pt Med Stat, Meds/Allgs Chart Reviewed, Consent Obtained/Reviewed and Anes Risks/Benef Reviewed Patient Risk: Intermediate Procedure Risk: Low
--- NOTE | 2022-08-16 09:27 | PC.NURSE ---
vaso vagal post iv, bp dropped to 70/[address] downey at bedside. pt a/ox3. c/o of diaphoresis,placed in trendelenburg.
--- NOTE | 2022-08-16 09:32 | PC.NURSE ---
Dt Jose A at bedside IV ephedrine given by , hr 106 bp 103/56
--- NOTE | 2022-08-16 09:40 | MHC.SHP ---
Pre-Procedural Eval Section A Date of Service: 08/16/22 Section B Chief Complaint: Encounter for screening for malignant neoplasm of Relevant Family History (Specify if Yes): No Relevant Social History: None Present Medications: see Short Stay Collaborative assessment Medical History: Significant History (Ascending aortic aneurysm Colon cancer screening Depression Memory change Osteoporosis Shortness of breath on exertion Thinning hair Vitamin D deficiency) History of Previous Operations: Relevant previous surgery/procedure and date(s) ( H/O colonoscopy History of repair of left hip joint Hx of appendectomy Hx of right knee surgery) Allergies: Allergies Allergy/AdvReac Type Severity Reaction Status Date / Time No Known Allergies Allergy Verified 08/11/22 15:47 [No Known Allergies*] Review of Systems Sugical H&P ROS: Negative: Constitution, Cardiovascular, Respiratory, Neurological, Psychiatric, Hem-Onc, Allergic/Immunologic, Gastrointestinal, Genitourinary, Musculoskeletal, Integumentary, Endocrine and Eyes/Ears/Nose/Throat Exam Surgical H&P Exam: Normal: HEENT, Normal: Heart, Normal: Lungs, Normal: Extremities, Normal: Abdomen, Normal: Skin and Normal: Neurological Plan Diagnosis/Plan: Unchanged I have reviewed the history and physical and performed a pertinent physical examination on my patient. No changes have occurred unless specified. Time Spent With Patient Time: Total time managing care of this patient today ____ minutes.
--- NOTE | 2022-08-16 09:41 | W.PM.OPN ---
Operative Note Operative Note Date of Service: 08/16/22 Narrative: Operative Information Procedure Description: Colonoscopy Indication: screening Anesthesia: MAC COLONOSCOPY Instrument: Olympus variable stiffness pediatric scope 190L Colonoscopy Monitoring: Vital signs and clinical assessment, continuous EKG monitoring, Pulse oximetry, Carbon Dioxide monitoring and blood pressure monitoring were done throughout the procedure. Colon withdrawal time was 6 minutes. Procedure: The patient was placed in the left lateral decubitis position and pre-procedure medications were administered. After a digital rectal examination of the ano-rectum, the video colonoscope was inserted into the rectum and advanced through the colon to the cecum/TI. The colonoscope was slowly withdrawn in a retrograde panoramic fashion and the colon mucosa was carefully examined including a retroflexed view of the rectum. Findings and interventions are described below. Procedure Difficulty: easy Findings: Terminal Ileum-normal Cecum:normal Ascending Colon: normal Transverse Colon -normal Descending Colon:normal Sigmoid Colon: moderate severe diverticulosis with some luminal narrowing Rectum: Retroflexion with small internal hemorrhoids, grade I Anorectum - normal Colon preparation: [place] Bowel Preparation Scale Right colon; 2 Transverse colon: 3 Left colon; 3 (0 = Unprepared colon segment with mucosa not seen due to solid stool that cannot be cleared. 1 = Portion of mucosa of the colon segment seen, but other areas of the colon segment not well seen due to staining, residual stool and/or opaque liquid. 2 = Minor amount of residual staining, small fragments of stool and/or opaque liquid, but mucosa of colon segment seen well. 3 = Entire mucosa of colon segment seen well with no residual staining, small fragments of stool or opaque liquid) Impression and Post Procedure Diagnosis: internal hemorrhoids diverticular disease Plan: High fiber diet leaflet Avoid straining at stool, epsom salts and sitz bath, anusol supps or cream Repeat Colonoscopy in 10 years if health allows or earlier if clinically indicated Above findings were reviewed with the patient and relevant handouts were provided if indicated.
--- NOTE | 2022-08-16 10:37 | PC.NURSE ---
patient completed 1 liter L.R. in procedure as appreciated upon arrival.
== END 2022-08-16 11:13 | disposition home or self-care (01) ==
PROVIDERS: PCP Internal Medicine; Visit Provider Internal Medicine Gastroenterology
PROC: 0DJD8ZZ Inspection of Lower Intestinal Tract, Via Natural or Artificial Opening Endoscopic (ICD-10-PCS; CPT 45378; principal; 2022-08-16 10:20)
DX: Z12.11 Encounter for screening for malignant neoplasm of colon (principal); K57.30 Diverticulosis of large intestine without perforation or abscess without bleeding; K64.0 First degree hemorrhoids; I71.21 Aneurysm of the ascending aorta, without rupture; F32.A Depression, unspecified; M81.0 Age-related osteoporosis without current pathological fracture; R06.02 Shortness of breath; R41.3 Other amnesia; E55.9 Vitamin D deficiency, unspecified; L65.9 Nonscarring hair loss, unspecified; Z79.899 Other long term (current) drug therapy; Z87.891 Personal history of nicotine dependence
CPT/HCPCS: G0121

== ENCOUNTER → 2022-08-29 08:32 | Outpatient (BNVA) | payer MEDICARE, SELFPAY | PROVIDERS: PCP Internal Medicine; Visit Provider Nurse Practitioner Family | DX: K57.90 Diverticulosis of intestine, part unspecified, without perforation or abscess without bleeding (principal); Z98.890 Other specified postprocedural states | CPT/HCPCS: 99212 ==

== ENCOUNTER 2022-10-10 08:43 | Outpatient (REF) | payer MEDICARE, SELFPAY ==
--- NOTE | ~2022-10-10 | MM_ITS ---
EXAMINATION: BONE DENSITOMETRY CLINICAL INDICATION: Osteoporosis. COMPARISON: Previous BD dated 09/14/2020 and baseline BD dated 07/19/2009. TECHNIQUE: Using a [employer] DXA System (software version: 13.1) manufactured by [employer], dual-energy x-ray absorptiometry was performed of the lumbar spine, right hip, and left forearm radius 33%. The images are of good technical quality. Summary results are attached. FINDINGS: RIGHT FEMUR, NECK: Current: BMD 0.682 g/cm2, Z-score -0.5, T-score -2.6, osteoporosis. Prior: BMD 0.625 g/cm2. Baseline: BMD 0.795 g/cm2. RIGHT FEMUR, TOTAL: Current: BMD 0.661 g/cm2, Z-score -0.9, T-score -2.7, osteoporosis, 2.8% increase from previous, 20.4% decrease from baseline (<5% change is not significant). Prior: BMD 0.643 g/cm2. Baseline: BMD 0.830 g/cm2. AP SPINE L1-L3 excluding L4. L4 excluded related to increased bony density from degenerative sclerosis. Current: BMD 0.945 g/cm2, Z-score 0.4, T-score minus 1.9, osteopenia, 2.2% increase from previous, 7.3% decrease from baseline (<5% change is not significant). Prior: BMD 0.925 g/cm2. Baseline: BMD 1.019 g/cm2. LEFT FOREARM RADIUS 33%: BMD 0.656 g/cm2, Z-score -0.7, T-score -2.5, osteoporosis. IDENTIFIED RISK FACTORS: Menopause, height loss, history of fracture (adult), osteoporosis. HISTORY OF FRACTURE: Hip. MEDICATIONS: Vitamin D, bisphosphonate. MM/XR DEXA appendicular skeleton IMPRESSION: 1. DIAGNOSIS: Severe osteoporosis based on the lowest T-score value of -2.7 in the total femur and history of hip fracture applying World Health Organization criteria. 2. 10-YEAR FRACTURE RISK PREDICTION, FRAX: According to the guidelines, FRAX calculation should only be performed on patients in the osteopenia bone density category. Therefore, FRAX was not performed on this patient. 3. Treatment Recommendations: NOF guidelines recommend consideration for treatment in postmenopausal women and men age 50 and older presenting with the following: -A hip or vertebral (clinical or morphometric) fracture. -T-score less than or equal to -2.5 at the femoral neck or spine after appropriate evaluation to exclude secondary causes. -Low bone mass at the hip or spine and a 10-year fracture probability by FRAX of greater than or equal to 3% for hip fracture or greater than or equal to 20% for major osteoporotic fracture based on the [place] adapted WHO algorithm. 4. Other Recommendations: All treatment decisions require clinical judgment and consideration of individual patient factors, including patient preferences, comorbidities, previous drug use, risk factors not captured in the FRAX model (e.g. frailty, falls, vitamin D deficiency, increased bone turnover, interval significant decline in bone density) and possible under or overestimation of fracture risk by FRAX. Additional medical evaluation for secondary cause of low bone mineral density may be appropriate. FUTURE SCAN RECOMMENDATION: People with diagnosed cases of osteoporosis or at high risk for fracture should have regular bone mineral density tests. For patients eligible for Medicare, routine testing is allowed once every 2 years. The testing frequency can be increased to one year for patients who have rapidly progressing disease, those who are receiving or discontinuing medical therapy to restore bone mass, or have additional risk factors.
== END 2022-10-10 08:44 | disposition home or self-care (01) ==
LOC: HO.MAMMO 08:43
PROVIDERS: PCP Internal Medicine; Visit Provider Internal Medicine
DX: Z13.820 Encounter for screening for osteoporosis (principal); Z78.0 Asymptomatic menopausal state; M81.0 Age-related osteoporosis without current pathological fracture
CPT/HCPCS: 77081

== ENCOUNTER 2022-11-07 07:18 | Outpatient (REF) | payer MEDICARE, SELFPAY ==
[2022-11-07 12:01] LABS: Alanine Aminotransferase 16 U/L (0-31); Albumin Level 4.1 g/dL (3.5-5.0); Alkaline Phosphatase 53 U/L (39-117); Anion Gap 13 (12-20); Aspartate Amino Transferase 18 U/L (5-31); Bilirubin Total 0.3 mg/dL (0.0-1.0); Blood Urea Nitrogen 15 mg/dL (9-16); Calcium 9.8 mg/dL (8.4-10.2); Carbon Dioxide 25 mmol/L (22-29); Chloride 102 mmol/L (96-108); Estimated Glomerular Filt Rate > 60; Glucose Random 92 mg/dL (60-115); Phosphorus 3.9 mg/dL (2.7-4.5); Potassium 4.5 mmol/L (3.3-5.1); Sodium 135 mmol/L (135-145); Total Protein 6.6 g/dL (6.5-8.0)
[2022-11-07 12:04] LABS: Vitamin D 25-OH Total 51.5 ng/mL (>30)
[2022-11-09 10:48] LABS: Calcium (PTHI) 9.5 mg/dL (8.6-10.4); PTHI 31 pg/mL (16-77)
[2022-11-12 07:34] LABS: Alkaline Phosphatase Bone 8.3 mcg/L (5.6-29.0)
[2022-11-14 13:28] LABS: N-Telopeptide 38 (see note); NTXCreaRU 64 mg/dL (20-275)
== END 2022-11-07 07:19 | disposition home or self-care (01) ==
LOC: HO.HMGCLDS 07:18
PROVIDERS: PCP Internal Medicine; Visit Provider Internal Medicine
DX: E55.9 Vitamin D deficiency, unspecified (principal); M81.0 Age-related osteoporosis without current pathological fracture
CPT/HCPCS: 36415; 80053; 82306; 82523; 83970; 84075; 84100

== ENCOUNTER 2023-04-20 13:31 | Outpatient (AMB) | payer MEDICARE, SELFPAY ==
--- NOTE | 2023-04-20 13:35 | MHC.PC.OV ---
Vital Signs 04/20/23 13:37 Height 5 ft 1 in Weight 109 lb BMI 20.6 BP 104/70 Blood Pressure Location Rt brachial Position Sitting Pulse 71 Pulse Source Pulse Oximeter Pulse Oximetry (%) 98 Oxygen Delivery Method Room Air Intake Visit Reasons: trouble eating/swallowing/weight loss Intake Note: Pt is here today c/o trouble eating, swallowing and losing wgt Allergies No Known Allergies [No Known Allergies*] Allergy (Verified 04/20/23 13:57) Medication List - Last Reconciled 04/20/23 by Sophie Duke MD bupropion HCl 450 mg PO DAILY cholecalciferol (vitamin D3) 50 mcg PO DAILY 30 days fluoxetine 40 mg PO DAILY Tobacco use date assessed: 04/20/23 Fall risk assessment: No Falls in past year Last assessed Fall Risk: 04/20/23 Dental Screening Dental Screen Date: 04/20/23 Did you have a dental visit in the last 12 months?: Yes Did you have a dental problem in the last 6 months where you did not have access to dental care?: Yes Was dental information given to patient?: Patient has dentist HPI trouble eating/swallowing/weight loss HPI Details 68-year-old lady here today stating that she has had trouble swallowing both solids and liquids for 5 days several weeks ago, states that she has been losing weight. At that time she was feeling very nauseated , and was having dry heaves but no vomiting . She states that she can not even drink coffee. Symptoms started to improve gradually on its own, and is now able to eat without any difficulty. At that time she was not having any chest pain but had sensation of fullness and mild epigastric discomfort. She is currently asymptomatic at present. Treatment Having problems swallowing, sensation of fullness all the time, unable to e [facility] Medical History (Updated 04/22/23 @ 20:46 by Sophie Duke MD) Difficulty swallowing Diverticulosis Ascending aortic aneurysm Memory change Vitamin D deficiency Osteoporosis Colon cancer screening Depression Thinning hair Shortness of breath on exertion Surgical History H/O colonoscopy Hx of right knee surgery History of repair of left hip joint Hx of appendectomy Family History Father CAD (coronary artery disease) Mother Essential hypertension Osteoporosis Paternal Aunt Depression Sister Essential hypertension Osteoporosis Family/Other Breast cancer Other Mental health disorder Social History Housing: Apartment Are you a primary home care liaison to a significant other at home: No Do you presently have visiting nurse or other home services: No Alcohol intake: current Alcohol intake frequency: holidays/special occasions only Patient Tobacco Use Status: Former Tobacco user Quit Date: 1999 Tobacco use type: Cigarette Years Smoked: 15 e-Cigarette/Vaping Use: Never Used Second Hand Smoke Exposure: No Substance Use Type: Marijuana service: No Current occupational status: employed and retired Cognitive needs: No Hearing needs: No Vision needs: No Female Reproductive History Menstrual Age of Menarche: 9 Questionnaire PHQ-9 Over the last 2 weeks, how often have you been bothered by any of the following problems? 66735 - PHQ-9 Billing: Patient declined-do not bill Source: Developed by Drs. Roberto Juarez, Veda Mon, Sundar Hill and colleagues, with an educational luann from [employer] Thrive Questionnaire Date Thrive assessed: 04/20/23 What is your living situation today?: I choose not to answer this question Within the past 12 months, did the food you bought not last and you didn't have the money to get more?: I choose not to answer this question Within the past 12 months, did you worry whether your food would run out before you got money to buy more?: I choose not to answer this question Do you have trouble paying for medicines?: I choose not to answer this question Do you have trouble getting transportation to medical appointments?: I choose not to answer this question Do you have trouble paying your heating and electricity bill?: I choose not to answer this question Do you have trouble taking care of your child, family member or friend?: I choose not to answer this question Do you have trouble with day-to-day activities such as bathing, preparing meals, shopping, managing finances, etc.?: I choose not to answer this question Are you currently unemployed and looking for a job?: I choose not to answer this question Are you interested in more education?: I choose not to answer this question THRIVE Score: 0 ROMY-7 AMB Questionnaire ROMY-7 Date ROMY - 7 assessed: 04/20/23 Source: Developed by Drs. Roberto Juarez, Veda Mon, Sundar Hill and colleagues, with an educational luann from [employer] ROMY-7 Assessment Billing ROMY-7 Assessment Tool: pt declined-do not bill Review of Systems Const Reports no additional complaints ENT Reports no additional complaints and Denies odynophagia Card Reports no additional complaints Resp Reports no additional complaints GI Reports as per HPI, Denies melena, Denies change in bowel habits, Denies change in stool character, Denies excessive flatus, Denies dyspepsia, Denies heartburn and Denies odynophagia Musc Reports no additional complaints Neuro Reports no additional complaints Psych Reports no additional complaints Endo Reports no additional complaints Physical exam (Primary Care) Vital Signs: Last Vital Signs Pulse 71 04/20/23 13:37 BP 104/70 04/20/23 13:37 Pulse Ox 98 04/20/23 13:37 Oxygen Delivery Method Room Air 04/20/23 13:37 BMI result Body Mass Index 20.6 Tobacco/Smoking Status: Tobacco use Status Tobacco use date assessed 04/20/23 04/20/23 13:41 Patient Tobacco Use Status Former Tobacco user 04/20/23 13:41 Tobacco use type Cigarette 04/20/23 13:41 e-Cigarette/Vaping Use Never Used 04/20/23 13:41 Thrive Assessment: Date of Thrive Assessment Date Thrive assessed 04/20/23 04/20/23 13:41 Const Other: Alert oriented x3, no acute distress noted ambulatory normal gait HENAR Head: Yes normocephalic and Yes atraumatic Face and sinus: Yes face symmetric Mouth: Normal oral and palatal mucosa present and moist mucous membranes Neck Other: Supple, no lymphadenopathy palpated, full range of motion Chest Chest palpation & inspection: normal inspection of the chest Resp Auscultation: clear to auscultation bilaterally Cardio Other: S1 and S2 present regular rate and rhythm Bruits: no abdominal aortic bruits GI Inspection: Yes normal to inspection Palpation (GI): No Abdominal aortic bruit present, Soft to palpation, nontender, no guarding and no masses Auscultation: normal bowel sounds General: Yes no CVA tenderness Back/Spine/Pelvis Back: no CVA tenderness and No back tenderness Skin General skin exam: no rashes or lesions noted Neuro General: gait normal, tone normal, moves all extremities, Normal light touch and pain sensation, no focal motor deficits and CN's II-XI intact bilaterally Extrem General: Yes full ROM, Yes no joint enlargement, Yes no clubbing, cyanosis or edema and Yes normal gait Assessment and Plan Assessment & Plan (1) Difficulty swallowing: Code(s): R13.10 - Dysphagia, unspecified Qualifiers: Dysphagia type: unspecified Qualified Code(s): R13.10 - Dysphagia, unspecified Plan: Ordered of barium swallow, and stat referral to GI for further evaluation and management. Patient advised to chew her food well, and stay well-hydrated. Advised that if symptoms recurs to go to ER for further evaluation management Orders: Orders FL barium swallow 04/20/23 R13.10 - Dysphagia, unspecified Referrals Gastroenterology Referral R13.10 - Dysphagia, unspecified Coding Level of Care Code Est Pt Level 3 (95617) Diagnoses Dysphagia, unspecified type R13.10 Dysphagia type: unspecified
[2023-04-20 13:37] VITALS: BP 104/70; PULSE 71; O2SAT 98; BMI 20.6
== END 2023-04-20 16:05 | disposition home or self-care (01) ==
PROVIDERS: PCP Internal Medicine; Visit Provider Internal Medicine
DX: R13.10 Dysphagia, unspecified (principal)
CPT/HCPCS: 99213

== ENCOUNTER 2023-04-23 07:58 | Outpatient (REF) | payer MEDICARE, SELFPAY ==
--- NOTE | ~2023-04-23 | FL_ITS ---
EXAMINATION: XR FLUOROSCOPY UPPER GI WITH AIR CLINICAL INFORMATION: Dysphagia. Epigastric pain. COMPARISON: None TECHNIQUE: Fluoroscopic air contrast upper GI examination was performed utilizing standard techniques with thin and thick barium and effervescent granules. Numerous spot images were obtained. FINDINGS: Lateral cine images of the oropharynx and hypopharynx demonstrate normal swallow mechanism with normal epiglottic inversion and soft palate elevation. No tracheal penetration, glottic or subglottic aspiration identified. No nasopharyngeal reflux present. Hypopharyngeal structures appear normal without evidence of mass or diverticulum. 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 Dual and single contrast images of the esophagus demonstrate normal caliber, contour, and mucosal pattern. No evidence of stricture, mass, or ulcerations identified. Esophageal peristalsis was mildly disordered. There is a small type I hiatal hernia present. No significant gastroesophageal reflux was seen during the course of the examination and on reflux views. Dual contrast and single contrast images of the stomach demonstrated a normal contour. There are multiple areas of pooling in the fundus and body of the stomach that may represent superficial ulcers. No mass is seen. Contrast freely passed into the gastric antrum and duodenal bulb without delay. Single and air-contrast images of the duodenal bulb demonstrate no abnormality. The duodenal sweep has a normal appearance, course, and mucosal fold appearance. No malrotation. The imaged proximal jejunum has a normal fold pattern and caliber. Numerous dental implants are evident. FLUOROSCOPY TIME: 4 minutes 35 seconds Number of Spot Images: 7 Number of Cine: 13 DOSE AREA PRODUCT: 1341 uGy-m2 (microgray-meter squared) FL/FL barium swallow with air IMPRESSION: 1. Mild to moderate cricopharyngeal achalasia. Mildly disordered tertiary esophageal contractions. 2. Small type I hiatal hernia. 3. Numerous small foci of contrast pooling in the body and fundus of the stomach that may represent superficial mucosal ulcers. Suspect erosive gastritis. Recommend correlation with EGD. This procedure was performed by Kana Cummings PA-C, and supervised by Dr. Mario
== END 2023-04-23 07:59 | disposition home or self-care (01) ==
LOC: HO.XRAY 07:58
PROVIDERS: PCP Internal Medicine; Visit Provider Internal Medicine
DX: R13.10 Dysphagia, unspecified (principal)
CPT/HCPCS: 74221

== ENCOUNTER → 2023-04-23 08:03 | Outpatient (BNV) | payer MEDICARE, SELFPAY | PROVIDERS: PCP Internal Medicine; Visit Provider Radiology Diagnostic Radiology | DX: R13.10 Dysphagia, unspecified (principal); R10.13 Epigastric pain | CPT/HCPCS: 74221 ==

== ENCOUNTER 2023-05-09 08:27 | Outpatient (AMB) | payer MEDICARE, SELFPAY ==
--- NOTE | 2023-05-09 08:33 | AM.OFFVISMDC ---
Intake Vital Signs 05/09/23 08:40 Height 5 ft 1 in Weight 106 lb BMI 20.0 BP 102/68 Blood Pressure Location Rt brachial Position Sitting Pulse 64 Pulse Source Pulse Oximeter Pulse Oximetry (%) 97 Oxygen Delivery Method Room Air Intake Visit Reasons: SWV G0439 Intake Note: Pt is here today for her SWV: Last mammogram 06/15/22, bone density scan 10/10/22, colonoscopy 08/16/22 Allergies No Known Allergies [No Known Allergies*] Allergy (Verified 05/10/23 13:42) Medication List - Last Reconciled 05/09/23 by Sophie Duke MD bupropion HCl 450 mg PO DAILY cholecalciferol (vitamin D3) 50 mcg PO DAILY 30 days fluoxetine 40 mg PO DAILY HPI SWV G0439 HPI Details SWV ?68 year old lady with depression, currently stable and controlled on present treatment, has osteoporosis, and history of ascending aortic aneurysm and recently found to have achalasia on barium swallow, here today for her subsequent Annual Wellness Visit. She is up-to-date with her screening mammogram with benign findings, and had a bone density scan done in 2022 which showed presence of osteoporosis in right femoral neck and right femur and osteopenia lumbar spine. She was being seen by Dr. Pascual and has been on Prolia now for the last 2 years, due for her next infusion. Looking for referral to a new maintenance shop clerk. She had her screening mammogram done 08/16/2022 with normal findings due again in 2032. Up-to-date with her lipid screening, done in 2021 with normal findings and had normal fasting glucose done in 2022. She is up-to-date with her pneumonia vaccine, has had her COVID vaccines but not yet the booster, due for her yearly flu vaccine and has not yet had her shingles vaccination, advised to get vaccinated. .? Medical / Social History Reviewed? Past Medical History ?Yes . ? [place] of Care / Care Team list updated ?Yes . ? Surgical/Hospitalization History ?Yes . ? Current Medications (including OTC and supplements) ?Yes . ? Family History ?Yes . ? Tobacco Control form ?Yes . ? AUDIT-C (Alcohol use) form ?Yes . ? Illicit drug use in Social History ?Yes . ? Current diagnosis of depression? ?Yes, followed by Sariah Sims ? Appropriate PHQ2/PHQ9 completed ?Yes . ? Data entered by ?Sheet Metal Installer and reviewed by provider ? Fall Risk ? Fall History? Have you had any falls with injury in the past year? ?No . ? Have you had two or more falls in the past year? ?No . ? Fall Risk Assessment: ?No falls in the past year . ? HRA filled out by the patient, reviewed by Provider and scanned. ?SWV ? Balance? Romberg ?Yes . ? Tandem walk ?Yes . ? Walk and Turn ?Yes . ? Rise from sit to stand ?Yes . ?Vision? Corrective lens ?no ? Vision screen ? Up-to-date, goes to [facility] for her routine eye exam ?Hearing? Whisper test ?pass . ?Written Plan?Completed. See Patient Documents.? HPI Comments History of Present Illness Details 68-year-old lady whon had a bone density scan done in 2022 which showed presence of osteoporosis in right femoral neck and right femur and osteopenia lumbar spine. She was being seen by Dr. Pascual, and has been on Prolia now for the last 2 years, now due for her next infusion. Looking for referral to a new maintenance shop clerk, requesting referral to endocrine clinic in [place]. FOR[facility]LY [facility], [facility] Medical History (Updated 05/10/23 @ 23:39 by Sophie Duke MD) Achalasia, esophageal Difficulty swallowing Diverticulosis Ascending aortic aneurysm Memory change Vitamin D deficiency Osteoporosis Colon cancer screening Depression Thinning hair Shortness of breath on exertion Surgical History H/O colonoscopy Hx of right knee surgery History of repair of left hip joint Hx of appendectomy Family History Father CAD (coronary artery disease) Mother Essential hypertension Osteoporosis Paternal Aunt Depression Sister Essential hypertension Osteoporosis Family/Other Breast cancer Other Mental health disorder Social History Housing: Apartment Are you a primary acute care nurse to a significant other at home: No Do you presently have visiting nurse or other home services: No Alcohol intake: current Alcohol intake frequency: holidays/special occasions only Patient Tobacco Use Status: Former Tobacco user Quit Date: 1999 Tobacco use type: Cigarette Years Smoked: 15 e-Cigarette/Vaping Use: Never Used Second Hand Smoke Exposure: No Substance Use Type: Marijuana service: No Current occupational status: employed and retired Cognitive needs: No Hearing needs: No Vision needs: No Female Reproductive History Menstrual Age of Menarche: 9 Questionnaire Medicare Wellness Checkup What [age] What gender do you identify with?: female During the past 4 weeks, how much have you been bothered by emotional problems such as feeling anxious, depressed, irritable, sad or downhearted, and blue?: moderately During the past 4 weeks, has your physical & emotional health limited your social activities with family, friends, neighbors, or groups?: moderately During the past 4 weeks, how much bodily pain have you generally had?: very mild pain During the past 4 weeks, was someone available to help you if you needed & wanted help?: yes, as much as I wanted During the past 4 weeks, what was the hardest physical activity you could do for at least 2 minutes?: moderate Can you get to places out of walking distance without help? (For eg., can you travel alone on buses, taxis or drive your car?): Yes Can you go shopping for groceries or clothes without someone's help?: Yes Can you prepare your own meals?: Yes Can you do your housework without help?: Yes Because of any health problems, do you need the help of another person with your personal care needs such as eating, bathing, dressing or getting around the house?: No Can you handle your own money without help?: Yes During the past 4 weeks, how would you rate your health in general?: good During the past 4 weeks how have things been going for you?: good & bad parts about equal Are you having difficulties driving your car?: no Do you always fasten your seat belt when you are in a car?: yes, usually During past 4 weeks, have you been bothered by the following: never: Falling or dizzy when standing up, Sexual problems?, Teeth or denture problems? and Problems using the telephone?, sometimes: Tiredness or fatigue? and often: Trouble eating well? Have you fallen 2 or more times in the past year?: No Are you afraid of falling?: No Are you a smoker?: no During the past 4 weeks, how many drinks of wine, beer, or other alcoholic beverages did you have?: no alcohol at all Do you exercise for about 20 minutes 3 or more times a week?: yes, all the time Have you been given information to help with the following?: yes: Hazards in your house that might hurt you? and yes: Keeping track of your medications? How often do you have trouble taking medicines the way you have been told to take them?: I always take medicine as prescribed How confident are you that you can control & manage most of your health problems?: very confident What is your race?: White Mini Mental State Exam (MMSE) Orientation What is the (year) (season) (date) (day) (month)?: year (2023), season (winter), date (05/09/2023), day (sunday) and month (april) Where are we (state) (county) (town or city) (hospital) (floor)?: state ([place]), county ([place]), town or city ([place]) and hospital/clinic ([facility] ) Score Score: 9 Activity of Daily Living Bathing - sponge bath, tub bath or shower: receives no assistance (gets in/out by self, if usual bathing means Dressing - getting clothes from closets & drawers, including inner/outer garments & fasteners.: gets clothes & gets completely dressed without help Toileting - going to the 'toilet room' for urine/bowel elimination & cleaning self/arranging clothes: goes to toilet room, cleans self, arranges clothes without help Transfer: moves in & out of bed and chair without help (may use support object) Continence: controls urination/bowel movements completely by self Feeding: feeds self without help Total Score: 0 Information obtained from: patient Using telephone: independent Traveling: independent Shopping: independent Preparing meals: independent Housework: independent Taking medicine: independent Managing money: independent PHQ-9 Over the last 2 weeks, how often have you been bothered by any of the following problems? 1. Little interest or pleasure in doing things: more than half the days 2. Feeling down, depressed, or hopeless: several days 3. Trouble falling or staying asleep, or sleeping too much: more than half the days 4. Feeling tired or having little energy: more than half the days 5. Poor appetite or overeating: more than half the days 6. Feeling bad about yourself - or that you are a failure or have let yourself or your family down: more than half the days 7. Trouble concentrating on things, such as reading the newspaper or watching television: more than half the days 8. Moving or speaking so slowly that other people could have noticed. Or the opposite - being so fidgety or restless that you have been moving around a lot more than usual: not at all 9. Thoughts that you would be better off or of hurting yourself in some way: not at all Total score: 13 Depression Screening Interpretation: Positive Depression Screening Follow-up: Existing condition, In treatment and Community Mental Health Worker F/U (Sees Sariah Sims in [place]) Depression Screening Done: Yes 11145 - PHQ-9 Billing: Yes Source: Developed by Drs. Roberto Juarez, Veda Mon, Sundar Hill and colleagues, with an educational luann from [employer]. Review of Systems Const Reports no additional complaints Eyes Denies change in vision ENT Reports no additional complaints and Denies odynophagia Card Reports no additional complaints Resp Reports no additional complaints GI Reports as per HPI, Denies melena, Denies change in bowel habits, Denies change in stool character, Denies excessive flatus, Denies dyspepsia, Denies heartburn and Denies odynophagia Musc Reports no additional complaints Neuro Reports no additional complaints Psych Reports no additional complaints Endo Reports no additional complaints Arik/Lymph Reports no additional complaints Physical Exam Vital Signs: Last Vital Signs Pulse 64 05/09/23 08:40 BP 102/68 05/09/23 08:40 Pulse Ox 97 05/09/23 08:40 Oxygen Delivery Method Room Air 05/09/23 08:40 BMI result Body Mass Index 20.0 Const General: healthy appearing, no acute distress and well developed Nutritional Appearance: well nourished Orientation/consciousness: patient oriented x3 HEENT Head: Yes normal to inspection and Yes normocephalic Mouth: Normal oral and palatal mucosa present Throat: Yes posterior oropharynx normal, Yes tonsils normal and Yes uvula midline Eyes General: appearance normal, both eyes and all related structures Neck Neck: Yes normal visual inspection, Yes full ROM and Yes trachea midline Thyroid: Thyroid normal Resp Effort & Inspection: normal respiratory effort and able to speak in complete sentences Auscultation: clear to auscultation bilaterally Cardio Rate: regular rate Heart sounds: S1 normal heart sound present and S2 normal heart sound present GI Inspection: Yes normal to inspection and No distended Palpation (GI): Soft to palpation, nontender, no guarding and no masses Auscultation: normal bowel sounds General: Yes no CVA tenderness Back/Spine/Pelvis Back: no CVA tenderness and No back tenderness Skin General skin exam: elasticity normal, turgor normal and dry skin Neuro General: patient oriented x3, gait normal, tone normal, moves all extremities, Normal light touch and pain sensation and no focal motor deficits Extrem General: Yes full ROM, Yes no joint enlargement, Yes no clubbing, cyanosis or edema and Yes normal gait Psych Appearance: grossly normal Mental Status: mental status grossly normal Speech and movement: Normal speech and movement present Affect: normal affect Thought process: Normal thought process present Results Reviewed Results Reviewed: [facility] [place], [place] [address] Mammography Report Signed Patient: Francoise Anaya MR#: [id number] : 1955 Acct:[id number] Age/Sex: 67 / F ADM Date: 10/10/22 Loc: HO.MAMMO Attending Dr: Kailey Mari DO Ordering Physician: Kailey Jade DO Results: Date of Service: 10/10/22 Follow Up: Procedure(s): XR DEXA appendicular skeleton Accession Number(s): [id number] cc: Kailey Jade DO~ EXAMINATION: BONE DENSITOMETRY CLINICAL INDICATION: Osteoporosis. COMPARISON: Previous BD dated 09/14/2020 and baseline BD dated 07/19/2009. TECHNIQUE: Using a [employer] DXA System (software version: 13.1) manufactured by [employer], dual-energy x-ray absorptiometry was performed of the lumbar spine, right hip, and left forearm radius 33%. The images are of good technical quality. Summary results are attached. FINDINGS: RIGHT FEMUR, NECK: Current: BMD 0.682 g/cm2, Z-score -0.5, T-score -2.6, osteoporosis. Prior: BMD 0.625 g/cm2. Baseline: BMD 0.795 g/cm2. RIGHT FEMUR, TOTAL: Current: BMD 0.661 g/cm2, Z-score -0.9, T-score -2.7, osteoporosis, 2.8% increase from previous, 20.4% decrease from baseline (<5% change is not significant). Prior: BMD 0.643 g/cm2. Baseline: BMD 0.830 g/cm2. AP SPINE L1-L3 excluding L4. L4 excluded related to increased bony density from degenerative sclerosis. Current: BMD 0.945 g/cm2, Z-score 0.4, T-score minus 1.9, osteopenia, 2.2% increase from previous, 7.3% decrease from baseline (<5% change is not significant). Prior: BMD 0.925 g/cm2. Baseline: BMD 1.019 g/cm2. LEFT FOREARM RADIUS 33%: BMD 0.656 g/cm2, Z-score -0.7, T-score -2.5, osteoporosis. IDENTIFIED RISK FACTORS: Menopause, height loss, history of fracture (adult), osteoporosis. HISTORY OF FRACTURE: Hip. Assessment & Plan Assessment & Plan (1) Encounter for subsequent annual wellness visit (AWV) in Medicare patient: Code(s): Z00.00 - Encounter for general adult medical examination without abnormal findings Plan: Medical wellnesChecklist, discussed with patient reviewed and updated. (2) Osteoporosis: Code(s): M81.0 - Age-related osteoporosis without current pathological fracture Qualifiers: Osteoporosis type: age-related Presence of current pathological fracture: without current pathological fracture Qualified Code(s): M81.0 - Age-related osteoporosis without current pathological fracture Plan: Patient has been on Prolia now for the last [address] Pascual, referred to Dr. Stanley at [facility], per patient request for follow-up on her osteoporosis and restarting Prolia infusion. (3) Achalasia, esophageal: Code(s): K22.0 - Achalasia of cardia Plan: Has already an appointment with [facility] today for further evaluation and management. (4) Depression: Comment: Therapist at [place] and followed by Sariah Sims Code(s): F32.9 - Major depressive disorder, single episode, unspecified Qualifiers: Active/Remission status: in full remission Depression Type: major depressive disorder Major depression recurrence: recurrent Qualified Code(s): F33.42 - Major depressive disorder, recurrent, in full remission Plan: Doing well on bupropion HCL for 450 mg daily and fluoxetine 40 mg daily. Has been on this now for the last 5 years and followed by Sariah Sims Orders: Referrals Endocrinology Referral M81.0 - Age-related osteoporosis without current pathological fracture Quality Reporting (2019) Depression/Bipolar (159/160/161/177) PHQ-9: Total score: 13 Coding Level of Care Code Medicare Subsequent (G0439) Est Pt Level 3 (68806) Diagnoses Encounter for subsequent annual wellness visit (AWV) in Medicare patient Z00.00 Age-related osteoporosis without current pathological fracture M81.0 Osteoporosis type: age-related Presence of current pathological fracture: without current pathological fracture Achalasia, esophageal K22.0 Recurrent major depressive disorder, in full remission F33.42 Active/Remission status: in full remission Depression Type: major depressive disorder Major depression recurrence: recurrent CPT Codes Advance Care Planning - Advance Care Planning discussion: On file, no changes ([id number]) Advance Care Planning - Time spent: 1-15 minutes, on File ([id number]) Advance Care Planning Advance Care Planning discussion: On file, no changes Date of discussion: 05/09/23 Who was present: Patient Forms completed: Health Care Proxy and MOLST Time spent: 1-15 minutes, on File
[2023-05-09 08:40] VITALS: BP 102/68; PULSE 64; O2SAT 97
== END 2023-05-09 12:05 | disposition home or self-care (01) ==
PROVIDERS: Visit Provider Internal Medicine
DX: Z00.00 Encounter for general adult medical examination without abnormal findings (principal); M81.0 Age-related osteoporosis without current pathological fracture; K22.0 Achalasia of cardia; F33.42 Major depressive disorder, recurrent, in full remission
CPT/HCPCS: 1123F; G0439

== ENCOUNTER 2023-05-09 11:54 | Outpatient (AMB) | payer MEDICARE, SELFPAY ==
--- NOTE | 2023-05-09 12:02 | MHC.OFFVIS ---
Intake Vital Signs 05/09/23 12:07 BP 96/51 L Blood Pressure Location Lt brachial Position Sitting Pulse 66 Intake Visit Reasons: follow up Difficulty swallowing Intake Note: Patient follow up for difficulty swallowing. Patient complaining last week she was with N/V, abdominal pain with bloating and also constipation, she said her swallowing problems is much better. 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 Diverticulosis discussed with patient. List of food high in fiber given to patient Status post colonoscopy Patient denies any ill effects from the prep, anesthesia procedure itself. Patient had no polyps, diverticulosis found. Patient denies any GI concerning symptoms. Colorectal screening well need to be repeated in 10 years, sooner in clinically necessary. Patient is agreeable to this plan and verbalizes understanding of instructions. She was given the opportunity to ask questions and all questions answered. TODAY'S VISIT Patient is here today for requested visit. In the past couple months patient had several episodes of dysphagia. Patient states to the point that she has been losing weight. Patient is afraid to eat anything sorry and sometimes liquid as she is unable to keep it it down. This morning patient was able to eat half a bagel with cream cheese and had no issues. Last week patient had nausea, vomiting and severe dyspepsia. Patient reports that 1st time symptoms started about couple months ago or so. Patient was sent by PCP to have barium swallow that showed no significant reflux, however possible gastric ulcers and mild to moderate cricopharyngeal achalasia. [facility] Medical History (Updated 05/09/23 @ 09:18 by Sophie Duke MD) Achalasia, esophageal Difficulty swallowing Diverticulosis Ascending aortic aneurysm Memory change Vitamin D deficiency Osteoporosis Colon cancer screening Depression Thinning hair Shortness of breath on exertion Surgical History H/O colonoscopy Hx of right knee surgery History of repair of left hip joint Hx of appendectomy Family History Father CAD (coronary artery disease) Mother Essential hypertension Osteoporosis Paternal Aunt Depression Sister Essential hypertension Osteoporosis Family/Other Breast cancer Other Mental health disorder Social History Housing: Apartment Are you a primary anesthesiologist and critical care to a significant other at home: No Do you presently have visiting nurse or other home services: No Alcohol intake: current Alcohol intake frequency: holidays/special occasions only Patient Tobacco Use Status: Former Tobacco user Quit Date: 1999 Tobacco use type: Cigarette Years Smoked: 15 e-Cigarette/Vaping Use: Never Used Second Hand Smoke Exposure: No Substance Use Type: Marijuana service: No Current occupational status: employed and retired Cognitive needs: No Hearing needs: No Vision needs: No Female Reproductive History Menstrual Age of Menarche: 9 Review of Systems Const Denies weight gain and Denies weight loss ENT Reports no additional complaints, Reports dysphagia and Denies odynophagia Card Reports no additional complaints Resp Reports no additional complaints GI Reports abdominal pain (Epigastric), Denies belching, Denies melena, Denies bloating, Denies change in bowel habits, Reports dysphagia, Denies excessive flatus, Reports dyspepsia, Reports heartburn, Denies diarrhea, Denies loose stools, Denies nausea, Denies odynophagia and Denies vomiting Reports no additional complaints Musc Reports no additional complaints Neuro Reports no additional complaints Psych Reports no additional complaints Endo Reports no additional complaints Physical Exam Const General: healthy appearing, no acute distress and well developed Nutritional Appearance: well nourished Orientation/consciousness: patient oriented x3 Resp Effort & Inspection: normal respiratory effort, able to speak in complete sentences, no tracheal deviation and symmetric chest movement Auscultation: clear to auscultation bilaterally Cardio Rate: regular rate GI Inspection: Yes normal to inspection and No distended Palpation (GI): Soft to palpation, not firm, nontender and No hepatosplenomegaly present Auscultation: normal bowel sounds General: Yes no CVA tenderness Back/Spine/Pelvis Back: no CVA tenderness Skin General skin exam: elasticity normal, turgor normal and dry skin Neuro General: patient oriented x3 Psych Appearance: grossly normal Mental Status: mental status grossly normal Results Reviewed Results Reviewed: BARIUM SWALLOW 04/23/2023 FINDINGS: Lateral cine images of the oropharynx and hypopharynx demonstrate normal swallow mechanism with normal epiglottic inversion and soft palate elevation. No tracheal penetration, glottic or subglottic aspiration identified. No nasopharyngeal reflux present. Hypopharyngeal structures appear normal without evidence of mass or diverticulum. 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 Dual and single contrast images of the esophagus demonstrate normal caliber, contour, and mucosal pattern. No evidence of stricture, mass, or ulcerations identified. Esophageal peristalsis was mildly disordered. There is a small type I hiatal hernia present. No significant gastroesophageal reflux was seen during the course of the examination and on reflux views. Dual contrast and single contrast images of the stomach demonstrated a normal contour. There are multiple areas of pooling in the fundus and body of the stomach that may represent superficial ulcers. No mass is seen. Contrast freely passed into the gastric antrum and duodenal bulb without delay. Single and air-contrast images of the duodenal bulb demonstrate no abnormality. The duodenal sweep has a normal appearance, course, and mucosal fold appearance. No malrotation. The imaged proximal jejunum has a normal fold pattern and caliber. Numerous dental implants are evident. FLUOROSCOPY TIME: 4 minutes 35 seconds Number of Spot Images: 7 Number of Cine: 13 DOSE AREA PRODUCT: 1341 uGy-m2 (microgray-meter squared) FL/FL barium swallow with air IMPRESSION: 1. Mild to moderate cricopharyngeal achalasia. Mildly disordered tertiary esophageal contractions. 2. Small type I hiatal hernia. 3. Numerous small foci of contrast pooling in the body and fundus of the stomach that may represent superficial mucosal ulcers. Suspect erosive gastritis. Recommend correlation with EGD. Assessment & Plan Assessment & Plan (1) Cricopharyngeal achalasia: Code(s): K22.0 - Achalasia of cardia (2) Dysphagia: Code(s): R13.10 - Dysphagia, unspecified Qualifiers: Dysphagia type: pharyngoesophageal phase Qualified Code(s): R13.14 - Dysphagia, pharyngoesophageal phase (3) GERD (gastroesophageal reflux disease): Code(s): K21.9 - Gastro-esophageal reflux disease without esophagitis Qualifiers: Esophagitis presence: esophagitis presence not specified (4) Epigastric pain: Code(s): R10.13 - Epigastric pain Plan Patient will start taking omeprazole twice a day half an hour before breakfast and half an hour before dinner. Patient will take Pepcid at bedtime. Discussed with patient avoiding dietary triggers. Will schedule patient for upper endoscopy for dilation of cricopharyngeal achalasia. Will also check for gastric, peptic ulcers. Will check for esophagitis, Chávez's, H pylori. Procedure was booked for tomorrow. What to expect before during and after the procedure discussed with patient. She will start taking her pantoprazole tomorrow after the procedure. Swallowing precautions discussed with patient. I will see her after the procedure, sooner on as needed basis. Patient is agreeable to this plan and verbalizes understanding of instructions. She was given the opportunity to ask questions and all questions answered. Thank you for allowing me to participate in her care Medications: New omeprazole 20 mg PO BID 60 caps 4RF K21.9 - Gastro-esophageal reflux disease without esophagitis famotidine (Pepcid) 20 mg PO BEDTIME 30 tabs 3RF K21.9 - Gastro-esophageal reflux disease without esophagitis Coding Level of Care Code Est Pt Level 4 (73119) Diagnoses Cricopharyngeal achalasia K22.0 Pharyngoesophageal dysphagia R13.14 Dysphagia type: pharyngoesophageal phase GERD (gastroesophageal reflux disease) K21.9 Esophagitis presence: esophagitis presence not specified Epigastric pain R10.13 Time Spent (min) 40 Comment 25 minutes spent with patient and additional 15 minutes spent reviewing her records
[2023-05-09 12:07] VITALS: BP 96/51; PULSE 66
== END 2023-05-09 12:36 | disposition home or self-care (01) ==
PROVIDERS: PCP Internal Medicine; Visit Provider Nurse Practitioner Family
DX: K22.0 Achalasia of cardia (principal); R13.14 Dysphagia, pharyngoesophageal phase; K21.9 Gastro-esophageal reflux disease without esophagitis; R10.13 Epigastric pain
CPT/HCPCS: 99214

== ENCOUNTER → 2023-05-09 11:54 | Outpatient (BNVA) | payer MEDICARE, SELFPAY | PROVIDERS: PCP Internal Medicine; Visit Provider Nurse Practitioner Family | DX: K22.0 Achalasia of cardia (principal); K21.9 Gastro-esophageal reflux disease without esophagitis; R13.14 Dysphagia, pharyngoesophageal phase; R10.13 Epigastric pain | CPT/HCPCS: 99212 ==

== ENCOUNTER 2023-05-10 13:29 | Day surgery (SDC) | payer MEDICARE, SELFPAY ==
--- NOTE | 2023-05-09 14:09 | HO.ANESPROP2 ---
Documented by User: Tammie Espinosa NP 05/09/23 14:09 HPI - Anesthesia Eval Consult details Narrative: 68yo F for Upper Endoscopy with Balloon Dilitation s/p colo 08/2022 with MAC PMFSH Active Problems Active Problems: All Active Problems (Updated 05/09/23 @ 09:18 by Sophie Duke MD) Achalasia, esophageal (Acute) Diverticulosis (Acute) Ascending aortic aneurysm (Acute) Vitamin D deficiency (Acute) Osteoporosis (Acute) Depression (Acute) Past Medical History Medical History (Updated 05/09/23 @ 09:18 by Sophie Duke MD) Achalasia, esophageal Difficulty swallowing Diverticulosis Ascending aortic aneurysm Memory change Vitamin D deficiency Osteoporosis Colon cancer screening Depression Thinning hair Shortness of breath on exertion Family History Family History Father CAD (coronary artery disease) Mother Essential hypertension Osteoporosis Paternal Aunt Depression Sister Essential hypertension Osteoporosis Family/Other Breast cancer Other Mental health disorder Family history of problems with anesthesia: No Surgical History Surgical History H/O colonoscopy Hx of right knee surgery History of repair of left hip joint Hx of appendectomy History of Problems with Anesthesia: No Social History Social History Housing: Apartment Are you a primary rn patient care to a significant other at home: No Do you presently have visiting nurse or other home services: No Alcohol intake: current Alcohol intake frequency: holidays/special occasions only Patient Tobacco Use Status: Former Tobacco user Quit Date: 1999 Tobacco use type: Cigarette Years Smoked: 15 e-Cigarette/Vaping Use: Never Used Second Hand Smoke Exposure: No Substance Use Type: Marijuana Advance Directives: No Advance Directives Information Provided: Yes service: No Current occupational status: employed and retired Cognitive needs: No Hearing needs: No Vision needs: No Meds Allergies Allergy/AdvReac Type Severity Reaction Status Date / Time No Known Allergies Allergy Verified 05/10/23 13:42 [No Known Allergies*] Home Medications Medication Instructions Recorded Confirmed Last Taken Type bupropion HCl 300 mg 24 hr tablet, 450 mg PO DAILY 06/30/20 05/10/23 05/10/23 06:30 History extended release fluoxetine 40 mg capsule 40 mg PO DAILY 06/30/20 05/10/23 05/10/23 06:30 History Assessment and Plan Assessment Anesthesia Assessment: Chart Reviewed Final Anesthetic Review Family History of Problems with Anesthesia: No History of Problems with Anesthesia: No Documented by User: Xavi Nye MD 05/10/23 14:07 [facility] Past Medical History Medical History (Updated 05/09/23 @ 09:18 by Sophie Duke MD) Achalasia, esophageal Difficulty swallowing Diverticulosis Ascending aortic aneurysm Memory change Vitamin D deficiency Osteoporosis Colon cancer screening Depression Thinning hair Shortness of breath on exertion Family History Family History Father CAD (coronary artery disease) Mother Essential hypertension Osteoporosis Paternal Aunt Depression Sister Essential hypertension Osteoporosis Family/Other Breast cancer Other Mental health disorder Surgical History Surgical History H/O colonoscopy Hx of right knee surgery History of repair of left hip joint Hx of appendectomy Social History Social History Housing: Apartment Are you a primary rn patient care to a significant other at home: No Do you presently have visiting nurse or other home services: No Alcohol intake: current Alcohol intake frequency: holidays/special occasions only Patient Tobacco Use Status: Former Tobacco user Quit Date: 1999 Tobacco use type: Cigarette Years Smoked: 15 e-Cigarette/Vaping Use: Never Used Second Hand Smoke Exposure: No Substance Use Type: Marijuana Advance Directives: No Advance Directives Information Provided: Yes service: No Current occupational status: employed and retired Cognitive needs: No Hearing needs: No Vision needs: No Meds Allergies Allergy/AdvReac Type Severity Reaction Status Date / Time No Known Allergies Allergy Verified 05/10/23 13:42 [No Known Allergies*] Home Medications Medication Instructions Recorded Confirmed Last Taken Type bupropion HCl 300 mg 24 hr tablet, 450 mg PO DAILY 06/30/20 05/10/23 05/10/23 06:30 History extended release fluoxetine 40 mg capsule 40 mg PO DAILY 06/30/20 05/10/23 05/10/23 06:30 History Exam Airway Loose/Missing/Broken Teeth: No Heart: rrr Lungs: cta b/l Assessment and Plan Final Anesthetic Review NPO: Yes ASA Class: II Final Preanesthetic Review: No Changes in Pt Med Stat, Meds/Allgs Chart Reviewed, Consent Obtained/Reviewed and Anes Risks/Benef Reviewed Patient Risk: Intermediate Procedure Risk: Intermediate Anesthetic Plan Anesthetic Plan: MAC: Disposition: Standard PACU
[2023-05-10 13:51] VITALS: BMI 18.1
--- NOTE | 2023-05-10 13:57 | MHC.SHP ---
Pre-Procedural Eval Section A - 24 Hr Update-Section A only Date of Service: 05/10/23 Section B - Complete if H&P > 30 days Chief Complaint: Dysphagia, unspecified Relevant Family History (Specify if Yes): No Relevant Social History: None Present Medications: see Short Stay Collaborative assessment Medical History: Significant History (Achalasia, esophageal Difficulty swallowing Diverticulosis Ascending aortic aneurysm Memory change Vitamin D deficiency Osteoporosis Colon cancer screening Depression Thinning hair Shortness of breath on exertion) History of Previous Operations: Relevant previous surgery/procedure and date(s) (of right knee surgery History of repair of left hip joint Hx of appendectomy) Allergies: Allergies Allergy/AdvReac Type Severity Reaction Status Date / Time No Known Allergies Allergy Verified 05/10/23 13:42 [No Known Allergies*] Review of Systems Sugical H&P ROS: Negative: Constitution, Cardiovascular, Respiratory, Neurological, Psychiatric, Hem-Onc, Allergic/Immunologic, Gastrointestinal, Genitourinary, Musculoskeletal, Integumentary, Endocrine and Eyes/Ears/Nose/Throat Exam Surgical H&P Exam: Normal: HEENT, Normal: Heart, Normal: Lungs, Normal: Extremities, Normal: Abdomen, Normal: Skin and Normal: Neurological Plan Diagnosis/Plan: Unchanged I have reviewed the history and physical and performed a pertinent physical examination on my patient. No changes have occurred unless specified. Time Spent With Patient Time: Total time managing care of this patient today ____ minutes.
[2023-05-10 14:12] VITALS: BP 153/73; PULSE 74; RESP 16; TEMP 37.7; O2SAT 96
--- NOTE | 2023-05-10 15:15 | W.PM.OPN ---
Operative Note Operative Note Date of Service: 05/10/23 Narrative: Procedure Description: EGD Indication: dysphagia Anesthesia: MAC FLEXIBLE TRANSORAL UPPER GASTROINTESTINAL ENDOSCOPY UPPER ENDOSCOPY Consent: Indications for the procedure and potential complications of bleeding, perforation, reaction to medications and missed diagnosis were discussed with the patient and informed consent was obtained. Instrument: Olympus GIF H 190 J mid size upper endoscope Monitoring: Vital signs and clinical assessment, continuous EKG monitoring, Pulse oximetry, Carbon Dioxide monitoring and blood pressure monitoring were done throughout the procedure. Procedure: The patient was placed in the left lateral decubitis position and pre-procedure medications were administered and a bite block was placed. The endoscope was inserted into the mouth and advanced under direct vision to the third part of duodenum. A careful inspection was made as the upper endoscope was withdrawn including a retroflexed examination of the proximal stomach; Findings and interventions are described below. Findings: Larynx:normal Esophagus: GE junction at 35 cm, diaphragm hiatus at 37 cm, mild esophagitis, bx taken from GEJ, distal and proximal esophagus, balloon dilation done to 19 mm at UES and 20 mm at LES, no tears seen Stomach: Patchy gastric erythema and erosions seen in antrum. Biopsies were obtained. Grade 2 flap valve on retroflexed examination of the cardia. Duodenum: Mild bulbar duodenitis, bx taken Intervention: Biopsies as noted above Impression/Findings: erosive gastritis duodenitis esophagitis hiatal hernia PLAN: await path GERD precautions can consider increasing PPI, if h pylori pos then treat
[2023-05-10 15:18] VITALS: BP 111/60; PULSE 97; RESP 16; TEMP 36.9; O2SAT 97
[2023-05-10 15:33] VITALS: BP 125/57; PULSE 90; RESP 16; TEMP 36.9; O2SAT 95
== END 2023-05-10 15:44 | disposition home or self-care (01) ==
PROVIDERS: PCP Internal Medicine; Visit Provider Internal Medicine Gastroenterology
PROC: (CPT 43249; principal; 2023-05-10 15:30)
DX: R13.10 Dysphagia, unspecified (principal); K29.50 Unspecified chronic gastritis without bleeding; K20.80 Other esophagitis without bleeding; K29.80 Duodenitis without bleeding; K44.9 Diaphragmatic hernia without obstruction or gangrene; K22.0 Achalasia of cardia; K57.30 Diverticulosis of large intestine without perforation or abscess without bleeding; I71.21 Aneurysm of the ascending aorta, without rupture; R41.3 Other amnesia; E55.9 Vitamin D deficiency, unspecified; M81.0 Age-related osteoporosis without current pathological fracture; Z79.899 Other long term (current) drug therapy; Z87.891 Personal history of nicotine dependence
CPT/HCPCS: 43249; 43239; 88305; 88313; 88342; C1726; J1596; J2704

== ENCOUNTER → 2023-05-10 13:29 | Outpatient (BNV) | payer MEDICARE, SELFPAY | PROVIDERS: PCP Internal Medicine; Visit Provider Internal Medicine Gastroenterology | DX: K20.90 Esophagitis, unspecified without bleeding (principal); K29.90 Gastroduodenitis, unspecified, without bleeding; K44.9 Diaphragmatic hernia without obstruction or gangrene | CPT/HCPCS: 43239; 43249 ==

== ENCOUNTER 2023-05-25 11:52 | Outpatient (AMB) | payer MEDICARE, SELFPAY ==
[2023-05-25 11:53] VITALS: BP 106/48; PULSE 65; BMI 19.0
--- NOTE | 2023-05-25 11:53 | MHC.OFFVIS ---
Intake Vital Signs 05/25/23 11:53 Height 5 ft 3 in Weight 107 lb 2.314 oz BMI 19.0 BP 106/48 L Blood Pressure Location Rt brachial Position Sitting Pulse 65 Pulse Source Pulse Oximeter Intake Visit Reasons: s/p egd dil Intake Note: Patient here to s/p egd dil. Pt states she gets really bad waves of nausea everyday and she states it is usually more than once a day. She states for the most part it happens at random times of the day but she notices it does happen more in the morning. Pt denies any vomiting or diarrhea. Allergies No Known Allergies [No Known Allergies*] Allergy (Verified 05/25/23 11:55) HPI s/p egd dil HPI Details LAST VISIT Cricopharyngeal achalasia Dysphagia GERD (gastroesophageal reflux disease) Epigastric pain Plan Patient will start taking omeprazole twice a day half an hour before breakfast and half an hour before dinner. Patient will take Pepcid at bedtime. Discussed with patient avoiding dietary triggers. Will schedule patient for upper endoscopy for dilation of cricopharyngeal achalasia. Will also check for gastric, peptic ulcers. Will check for esophagitis, Chávez's, H pylori. Procedure was booked for tomorrow. What to expect before during and after the procedure discussed with patient. She will start taking her pantoprazole tomorrow after the procedure. Swallowing precautions discussed with patient. I will see her after the procedure, sooner on as needed basis. Patient is agreeable to this plan and verbalizes understanding of instructions. She was given the opportunity to ask questions and all questions answered. ? Thank you for allowing me to participate in her care Medications New omeprazole 20 mg PO BID 60 caps 4RF K21.9 famotidine (Pepcid) 20 mg PO BEDTIME 30 tabs 3RF K21.9 UPPER ENDOSCOPY Findings: Larynx:normal Esophagus: GE junction at 35 cm, diaphragm hiatus at 37 cm, mild esophagitis, bx taken from GEJ, distal and proximal esophagus, balloon dilation done to 19 mm at UES and 20 mm at LES, no tears seen Stomach: Patchy gastric erythema and erosions seen in antrum. Biopsies were obtained. Grade 2 flap valve on retroflexed examination of the cardia. Duodenum: Mild bulbar duodenitis, bx taken Intervention: Biopsies as noted above Impression/Findings: erosive gastritis duodenitis esophagitis hiatal hernia PLAN: await path GERD precautions can consider increasing PPI, if h pylori pos then treat PATHOLOGY RESULTS; Diagnosis A. Duodenum, biopsy: Chronic inactive duodenitis. B. Stomach, biopsy: Antral-type mucosa within normal limits; no Helicobacter organisms seen. C. EG junction, biopsy: - Chávez esophagus with background moderate chronic, focally active, inflammation. - No dysplasia seen. - Squamous epithelium within normal limits. D. Esophagus, distal, biopsy: Squamous epithelium within normal limits; no inflammation seen. E. Esophagus, proximal, biopsy: Squamous epithelium within normal limits; no inflammation seen TODAY'S VISIT Patient is here today for follow-up and to discuss upper endoscopy results. Patient denies any ill effects from anesthesia or procedure itself. Patient was diagnosed with duodenitis, Chávez's, gastritis and esophagitis. No H pylori. Patient states that she is feeling little better continues to feel nauseous specially in the morning. Patient reports that she is no longer vomiting. Taking omeprazole before breakfast and before dinner. Takes famotidine at bedtime. Patient reports frequent belching. States that she eats small meals. Patient denies dyspepsia, dysphagia or odynophagia. Patient denies any other GI concerning symptoms. [facility] Medical History (Updated 05/25/23 @ 12:37 by Elayne Patel [facility]) Chávez's esophagus determined by endoscopy Achalasia, esophageal Difficulty swallowing Diverticulosis Ascending aortic aneurysm Memory change Vitamin D deficiency Osteoporosis Colon cancer screening Depression Thinning hair Shortness of breath on exertion Surgical History H/O colonoscopy Hx of right knee surgery History of repair of left hip joint Hx of appendectomy Family History Father CAD (coronary artery disease) Mother Essential hypertension Osteoporosis Paternal Aunt Depression Sister Essential hypertension Osteoporosis Family/Other Breast cancer Other Mental health disorder Social History (Updated 05/25/23 @ 11:56 by Jessica Wong MA) Housing: Apartment Are you a primary critical care nurse to a significant other at home: No Do you presently have visiting nurse or other home services: No Alcohol intake: current Alcohol intake frequency: holidays/special occasions only Patient Tobacco Use Status: Former Tobacco user Quit Date: 1999 Tobacco use type: Cigarette Years Smoked: 15 e-Cigarette/Vaping Use: Never Used Second Hand Smoke Exposure: No service: No Current occupational status: employed and retired Cognitive needs: No Hearing needs: No Vision needs: No Female Reproductive History Menstrual Age of Menarche: 9 Review of Systems Const Denies weight gain and Denies weight loss ENT Reports no additional complaints, Denies dysphagia and Denies odynophagia Card Reports no additional complaints Resp Reports no additional complaints GI Denies abdominal pain, Reports belching, Denies melena, Reports bloating, Denies change in bowel habits, Denies dysphagia, Denies excessive flatus, Denies dyspepsia, Denies heartburn, Denies diarrhea, Denies loose stools, Reports nausea, Denies odynophagia and Denies vomiting Reports no additional complaints Musc Reports no additional complaints Neuro Reports no additional complaints Psych Reports no additional complaints Endo Reports no additional complaints Physical Exam Vital Signs: Last Vital Signs Pulse 65 05/25/23 11:53 BP 106/48 L 05/25/23 11:53 BMI result Body Mass Index 19.0 Const General: healthy appearing, no acute distress and well developed Nutritional Appearance: thin and underweight Orientation/consciousness: patient oriented x3 Resp Effort & Inspection: normal respiratory effort, able to speak in complete sentences, no tracheal deviation and symmetric chest movement Auscultation: clear to auscultation bilaterally Cardio Rate: regular rate GI Inspection: Yes normal to inspection and No distended Palpation (GI): Soft to palpation, not firm, nontender and No hepatosplenomegaly present Auscultation: normal bowel sounds General: Yes no CVA tenderness Back/Spine/Pelvis Back: no CVA tenderness Skin General skin exam: elasticity normal, turgor normal and dry skin Neuro General: patient oriented x3 Psych Appearance: grossly normal Mental Status: mental status grossly normal Assessment & Plan Assessment & Plan (1) Cricopharyngeal achalasia: Code(s): K22.0 - Achalasia of cardia (2) Dysphagia: Code(s): R13.10 - Dysphagia, unspecified Qualifiers: Dysphagia type: pharyngoesophageal phase Qualified Code(s): R13.14 - Dysphagia, pharyngoesophageal phase (3) GERD (gastroesophageal reflux disease): Code(s): K21.9 - Gastro-esophageal reflux disease without esophagitis Qualifiers: Esophagitis presence: with esophagitis Esophagitis bleeding: without hemorrhage Qualified Code(s): K21.00 - Gastro-esophageal reflux disease with esophagitis, without bleeding (4) Epigastric pain: Code(s): R10.13 - Epigastric pain (5) Chávez's esophagus determined by endoscopy: Code(s): K22.70 - Chávez's esophagus without dysplasia Plan Continue omeprazole twice a day and famotidine at bedtime. Discussed with patient avoiding dietary triggers and late night snacking. Patient will try to sleep on wedge pillow. Avoid eating for 3 hours before bedtime. Patient reports abdominal bloating, weight loss of almost 20 lb in his short period of time. Patient will be sent for CT scan to rule out pancreatic malignancy, cholelithiasis. I will see him 6 weeks, sooner on as needed basis. Patient is agreeable to this plan and verbalizes understanding of instructions. She was given the opportunity to ask questions and all questions answered. Thank you for allowing me to participate in her care Orders: Orders Blood Urea Nitrogen Today R10.11 - Right upper quadrant pain Creatinine Today R10.11 - Right upper quadrant pain CT abdomen pelvis w IV con Today G89.29 - Other chronic pain, R10.13 - Epigastric pain, R10.9 - Unspecified abdominal pain Coding Level of Care Code Est Pt Level 4 (23583) Diagnoses Cricopharyngeal achalasia K22.0 Pharyngoesophageal dysphagia R13.14 Dysphagia type: pharyngoesophageal phase Gastroesophageal reflux disease with esophagitis without hemorrhage K21.00 Esophagitis presence: with esophagitis Esophagitis bleeding: without hemorrhage Epigastric pain R10.13 Chávez's esophagus determined by endoscopy K22.70 Time Spent (min) 35 Comment 20 minutes spent with patient and additional 15 minutes spent reviewing her records
== END 2023-05-25 12:32 | disposition home or self-care (01) ==
PROVIDERS: PCP Internal Medicine; Visit Provider Nurse Practitioner Family
DX: K22.0 Achalasia of cardia (principal); R13.14 Dysphagia, pharyngoesophageal phase; K21.00 Gastro-esophageal reflux disease with esophagitis, without bleeding; R10.13 Epigastric pain; K22.70 Barrett's esophagus without dysplasia
CPT/HCPCS: 99214

== ENCOUNTER → 2023-05-25 11:52 | Outpatient (BNVA) | payer MEDICARE, SELFPAY | PROVIDERS: PCP Internal Medicine; Visit Provider Nurse Practitioner Family | DX: K22.0 Achalasia of cardia (principal); K21.00 Gastro-esophageal reflux disease with esophagitis, without bleeding; K22.70 Barrett's esophagus without dysplasia; R13.14 Dysphagia, pharyngoesophageal phase; R10.13 Epigastric pain | CPT/HCPCS: 99212 ==

== ENCOUNTER 2023-06-11 10:03 | Outpatient (REF) | payer MEDICARE, SELFPAY ==
[2023-06-11 14:12] LABS: Blood Urea Nitrogen 16 mg/dL (9-16); Estimated Glomerular Filt Rate > 60
== END 2023-06-11 10:04 | disposition home or self-care (01) ==
LOC: HO.HMGCLDS 10:03
PROVIDERS: PCP Internal Medicine; Visit Provider Nurse Practitioner Family
DX: R10.11 Right upper quadrant pain (principal)
CPT/HCPCS: 36415; 82565; 84520

== ENCOUNTER 2023-06-13 13:32 | Outpatient (REF) | payer MEDICARE, SELFPAY ==
--- NOTE | ~2023-06-13 | CT_ITS ---
EXAMINATION: CT ABDOMEN AND PELVIS WITH CONTRAST CLINICAL INFORMATION: Epigastric pain. COMPARISON: None available. TECHNIQUE: Multidetector volumetric images were obtained from the superior aspect of the liver through the pubic symphysis following administration 85 mL of Omnipaque 350 intravenous contrast. Sagittal and coronal reformatted images were obtained on the technologist's workstation. Oral Contrast: 900 mL of PO contrast. This CT examination was performed using dose optimization techniques as appropriate, variously including the following: *Automated exposure control. *Adjustment of mA and/or kV according to patient size (this includes techniques or standardized protocols for targeted exams where dose is matched to indication/reason for exam; i.e. extremities or head). *Use of iterative reconstruction technique. DLP: 195 mGy-cm FINDINGS: LUNG BASES: The visualized lung bases are unremarkable. Previously seen bilateral pleural effusions have resolved. LIVER, GALLBLADDER, AND BILIARY TREE: The liver is normal in size, shape, and attenuation. Small hypodensities are seen in the liver consistent with benign cysts. Similar findings can be seen on the 2013 study although not as well visualized secondary to lack of IV contrast. No worrisome solid focal hepatic lesion or biliary ductal dilatation is present. The gallbladder is unremarkable with no evidence of radiopaque gallstones, gallbladder wall thickening, or obvious pericholecystic inflammatory changes. PANCREAS: Unremarkable. SPLEEN: Unremarkable. ADRENAL GLANDS: Unremarkable. KIDNEYS AND URETERS: The kidneys are normal in size, shape, and attenuation. No hydronephrosis, hydroureter, or calculi seen. No perinephric stranding. BLADDER: Unremarkable. GASTROINTESTINAL TRACT: The small and large bowel are unremarkable aside from colonic diverticula without evidence of diverticulitis. No evidence of appendicitis. ABDOMINAL WALL: No significant hernia is appreciated. LYMPH NODES: No retroperitoneal lymphadenopathy. VASCULAR: Calcific atherosclerotic changes are present in the aorta and iliofemoral vessels. There is no evidence of an abdominal aortic aneurysm. PELVIC VISCERA: The uterus and adnexa are unremarkable. Ascites that had been present on the 06/14/2012 study no longer present. OSSEOUS STRUCTURES: Degenerative changes are present at L3-L4 and L4-L5. Anterolisthesis L4 upon L5. No bony destructive lesions. CT/CT abdomen pelvis w IV con IMPRESSION: 1. A cause for the patient's epigastric pain has not been found. 2. Incidental note made of benign hepatic cysts, colonic diverticulosis without diverticulitis and degenerative changes in the spine. Fleischner guidelines were followed.
[2023-06-13] MEDS: Barium Sulfate Oral (Mocha) 450 ML ORAL.SUSP 900 ML PO (16:03)
[2023-06-13] MEDS: iohexoL 350 MG/ML 100 ML INFUS..BTL 85 ML IV (16:03)
== END 2023-06-13 13:33 | disposition home or self-care (01) ==
LOC: HO.CT 13:32
PROVIDERS: PCP Internal Medicine; Visit Provider Nurse Practitioner Family
DX: R10.13 Epigastric pain (principal); G89.29 Other chronic pain
CPT/HCPCS: 74177; Q9967

== ENCOUNTER → 2023-07-06 08:45 | Outpatient (BNV) | payer MEDICARE, SELFPAY | PROVIDERS: PCP Internal Medicine; Visit Provider Radiology Diagnostic Radiology | DX: Z12.31 Encounter for screening mammogram for malignant neoplasm of breast (principal) | CPT/HCPCS: 77063; 77067 ==

== ENCOUNTER 2023-07-06 08:47 | Outpatient (REF) | payer MEDICARE, SELFPAY ==
--- NOTE | ~2023-07-06 | MM_ITS ---
EXAMINATION: MM SCREENING DIGITAL BREAST TOMOSYNTHESIS, BILATERAL CLINICAL INFORMATION: Screening. Asymptomatic. COMPARISON: Mammography: This study is compared with prior exams dating back to 2020. TECHNIQUE: Digital breast tomosynthesis is performed in both the craniocaudal and mediolateral oblique views along with computer-aided detection (CAD). Synthesized 2D images are generated from the tomosynthesis. FINDINGS: The breasts are heterogeneously dense, which may obscure small masses (ACR BI-RADS breast composition Category c). There are no significant masses, abnormal calcifications, or other abnormalities. MM/MM tomosynthesis screening BI IMPRESSION: No mammographic evidence of malignancy. ASSESSMENT: BI-RADS BI-RADS 1 - Negative RECOMMENDATION: Routine annual mammography screening. 1 year F/U This examination should not preclude the clinical evaluation of a suspicious palpable abnormality. This patient's information was entered into a reminder system with a target due date for their next mammogram.
== END 2023-07-06 08:48 | disposition home or self-care (01) ==
LOC: HO.MAMMO 08:47
PROVIDERS: PCP Internal Medicine; Visit Provider Internal Medicine
DX: Z12.31 Encounter for screening mammogram for malignant neoplasm of breast (principal)
CPT/HCPCS: 77063; 77067

== ENCOUNTER 2023-11-06 09:02 | Outpatient (AMB) | payer MEDICARE, SELFPAY ==
--- NOTE | 2023-11-06 09:05 | A.OFFVIS_ITS ---
Vital Signs 11/06/23 09:07 Height 5 ft 3.09 in Weight 99 lb 10.383 oz BMI 17.6 BP 96/62 Blood Pressure Location Rt brachial Position Sitting Pulse 70 Pulse Source Pulse Oximeter Intake Visit Reasons: Osteoporosis-confirmed Intake Note: New patient referred by PCP for Osteoporosis. 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 The patient was previously seen by Dr. Pascual on 05/15/2022 First diagnosed in 2020 with her most recent bone density. Has never been treated. After her initial visit with me we completed a biochemical assessment for secondary causes of Osteoporosis. This revealed high normal calcium, but was otherwise WNL. Labs were repeated and were completely WNL. She was recommended for treatment with Evenity, but this was denied by her insurance. Prolia was cost prohibitive for her. She opted for IV Reclast and was scheduled for her first infusion 11/16/2021. She had a vasovagal reaction and was sent to the ED emergently. She did not receive her IV Reclast. She is seen today in F/U. Has 1-2 servings of dietary calcium per day in the form of cottage cheese and hot chocolate. She takes Calcium carbonate 600 mg PO daily. Takes Vitamin D 50,000 IU once a week. Denies ever using PPI, anticoagulant, antiepileptic or glucocorticoid medication. Does weight bearing exercise 7 days per week in the form of walking for 45 minutes at a time. Fracture history: Fracture of the L hip in 2018 after slipping on ice, this was a fragility fracture. 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 Menses was always regular. . She did not breastfeed. Menopause was 43. She used HRT for 1 year afterwards. Denies history of Kidney stones: Family history of Osteoporosis in her Mother and Sister. UTD on dental cleanings and sees dentist every 6 months. No planned upcoming dental work or extractions. DXA dated 09/14/2020: FINDINGS: AP SPINE L1-L3 (excluding L4): The data of L1-L4 has been changed to exclude the L4 vertebral body, because degenerative change at this level may cause overestimation of lumbar spine density. Current: BMD 0.925 g/cm2, Z-score 0.0, T-score -2.0, osteopenia, 9.2% decrease from baseline (<5% change is not significant). Baseline: BMD 1.019 g/cm2. RIGHT FEMUR, NECK: Current: BMD 0.625 g/cm2, Z-score -1.1, T-score -3.0, osteoporosis. Baseline: BMD 0.795 g/cm2. RIGHT FEMUR, TOTAL: Current: BMD 0.643 g/cm2, Z-score -1.3, T-score -2.9, osteoporosis, 22.5% decrease from baseline (<5% change is not significant). Baseline: BMD 0.830 g/cm2. Labs: Laboratory Tests 05/08/22 05/08/22 05/09/22 08:10 08:10 07:45 Sodium 138 Potassium 4.9 Creatinine 0.75 Estimated GFR > 60 N-Telopeptide X-linked 68 25-OH Vitamin D Total 46.0 PTH Intact 24 Calcium (PTH Intact) 9.8 Repeat DEXA 10/10/2022 FINDINGS: RIGHT FEMUR, NECK: Current: BMD 0.682 g/cm2, Z-score -0.5, T-score -2.6, osteoporosis. Prior: BMD 0.625 g/cm2. Baseline: BMD 0.795 g/cm2. RIGHT FEMUR, TOTAL: Current: BMD 0.661 g/cm2, Z-score -0.9, T-score -2.7, osteoporosis, 2.8% increase from previous, 20.4% decrease from baseline (<5% change is not significant). Prior: BMD 0.643 g/cm2. Baseline: BMD 0.830 g/cm2. AP SPINE L1-L3 excluding L4. L4 excluded related to increased bony density from degenerative sclerosis. Current: BMD 0.945 g/cm2, Z-score 0.4, T-score minus 1.9, osteopenia, 2.2% increase from previous, 7.3% decrease from baseline (<5% change is not significant). Prior: BMD 0.925 g/cm2. Baseline: BMD 1.019 g/cm2. LEFT FOREARM RADIUS 33%: BMD 0.656 g/cm2, Z-score -0.7, T-score -2.5, osteoporosis. Received 2 nd dose of Reclast . No fx since 2018. [facility] Medical History (Updated 05/25/23 @ 12:37 by Elayne Patel, [facility]) Chávez's esophagus determined by endoscopy Achalasia, esophageal Difficulty swallowing Diverticulosis Ascending aortic aneurysm Memory change Vitamin D deficiency Osteoporosis Colon cancer screening Depression Thinning hair Shortness of breath on exertion Surgical History H/O colonoscopy Hx of right knee surgery History of repair of left hip joint Hx of appendectomy Family History Father CAD (coronary artery disease) Mother Essential hypertension Osteoporosis Paternal Aunt Depression Sister Essential hypertension Osteoporosis Family/Other Breast cancer Other Mental health disorder Social History Housing: Apartment Are you a primary pharmacy care coordinator to a significant other at home: No Do you presently have visiting nurse or other home services: No Alcohol intake: current Alcohol intake frequency: holidays/special occasions only Patient Tobacco Use Status: Former Tobacco user Tobacco use type: Cigarette Years Smoked: 15 e-Cigarette/Vaping Use: Never Used Second Hand Smoke Exposure: No service: No Current occupational status: employed and retired Cognitive needs: No Hearing needs: No Vision needs: No Female Reproductive History Menstrual Age of Menarche: 9 Physical Exam Vital Signs: BMI result Body Mass Index 17.6 Assessment & Plan Assessment & Plan (1) Osteoporosis: Code(s): M81.0 - Age-related osteoporosis without current pathological fracture Category: Medical Qualifiers: Osteoporosis type: age-related Presence of current pathological fracture: without current pathological fracture Qualified Code(s): M81.0 - Age- related osteoporosis without current pathological fracture Plan: This 68-year-old white female with a history of osteoporosis with secondary workup negative. She received a dose of Reclast and had reaction to it. . Plan is to continue calcium and vitamin-D supplementation. Considering patient's previous history fragility hip fracture a low bone density patient is a very high risk for subsequent vertebral or hip fracture and would benefit from anabolic therapy according to AACE guidelines. Would try to get approval for Keyanna or Maksim Thorne Coding Level of Care Code Est Pt Level 3 (60102) Diagnoses Age-related osteoporosis without current pathological fracture M81.0 Osteoporosis type: age-related Presence of current pathological fracture: without current pathological fracture
[2023-11-06 09:07] VITALS: BP 96/62; PULSE 70; BMI 17.6
== END 2023-11-06 09:47 | disposition home or self-care (01) ==
PROVIDERS: PCP Internal Medicine; Visit Provider Internal Medicine Endocrinology, Diabetes & Metabolism
DX: M81.0 Age-related osteoporosis without current pathological fracture (principal)
CPT/HCPCS: 99213

== ENCOUNTER → 2023-11-06 09:02 | Outpatient (BNVA) | payer MEDICARE, SELFPAY | PROVIDERS: PCP Internal Medicine; Visit Provider Internal Medicine Endocrinology, Diabetes & Metabolism | DX: M81.0 Age-related osteoporosis without current pathological fracture (principal) | CPT/HCPCS: 99212 ==

== ENCOUNTER 2024-11-20 10:10 | Outpatient (REF) | payer MEDICARE, SELFPAY ==
--- OUTSIDE RECORDS SUMMARY | 2024-11-20 11:27 | XMS_ITS | Patient Health Record ---
Author Organization [facility] Address [address] [place] [id number] Care Team Providers Care Policy Issue Clerk Name Role Phone Shen Mitchell Jr [phone] Reason For Referral No Information Plan Of Treatment No Information
--- OUTSIDE RECORDS SUMMARY | 2024-11-20 11:27 | XMS_ITS ---
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 Role Phone Ry Roberto Unavailable Unavailable Allergies and adverse reactions No Known Allergies Care Team Name Role Address Phone Organization Dates Ry Roberto PCP [address], [address], [place], [address], [place] (Office): : [facility] 04/11/2017 - 04/11/2017 Immunizations Immunization Status Vaccine Details Vaccine Code CodeSystem Ravindra e Notes Influenza cancelled Influenza, split virus, trivalent, injectable, contains preservative 141 CVX created date: 04/11/2017 consent date: 04/10/2017 TB 1 Step Mantoux (PPD) completed tuberculin skin test; unspecified formulation Given 0.1 ml Right Forearm intradermally 98 CVX created date: 04/11/2017 consent date: 04/10/2017 administere d date: 04/11/2017 PCV13 (Pneumococcal Conjugate)Vaccine cancelled pneumococcal conjugate vaccine, 13 valent 133 CVX created date: 04/11/2017 consent date: 04/10/2017 Mental Status Section Date Assessment Total Score Description 04/11/2017 CAM 0 No delirium ind icated 04/11/2017 CAM 0 No delirium ind icated Problems Problem # Description Date of onset Resolved Date Code CodeSystem Concern Status 1 DISPLACED INTERTROCHANTERIC FRACTURE OF LEFT FEMUR, SUBSEQUENT ENCOUNTER FOR CLOSED FRACTURE WITH ROUTINE HEALING [address] active 2 REPEATED FALLS [address] active 3 UNSPECIFIED ABNORMALITIES OF GAIT AND MOBILITY [address] active [address] WEAKNESS [address] active Reason for Referral No Reasons for Referral Entered Social History Social History Observation Description Start Date End Date Code Code System Current Smoking Status Tobacco smoking consumption unknown 211945228 SNOMED CT Sex Assigned At Female 1955 95411-1 [facility] Gender Identity Vital Signs Code Code System Vitals Name Values and Units Timing Information 44806-3 [facility] Pain Level Value=5.0 04/12/2017 9279-1 [facility] Respiratory Rate Value=18.0 Units=/m in 04/11/2017 8462-4 [facility] Blood Pressure-Diastolic Value=60 Un its=mmHg 04/11/2017 8480-6 [facility] Blood Pressure-Systolic Wogdm=610 Un its=mmHg 04/11/2017 8310-5 [facility] Body Temperature Value=98.2 Units= F 04/11/2017 8867-4 [facility] Heart rate Value=72.0 Units=/min 68611-9 [facility] O2 % BldC Oximetry Value=96.0 Units= % 04/11/2017 93467-4 [facility] Weight Wmzeg=948.0 Units=Lbs 8302-2 [facility] Height Value=64.0 Units=Inches 04/11/2017
--- OUTSIDE RECORDS SUMMARY | 2024-11-20 11:27 | XMS_ITS | Encounter Summary ---
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 Name Role Phone Pcp, Not Required Primary Care Provider Sophie De Leon MD Primary Care Provider Encounter Details Date Type Department Care Team (Late st Contact Info) Description 07/10/2022 Procedure Pass [facility] [address] [place] [address] Social History Tobacco Use Types Packs/Day Years Used Date Smoking Tobacco: Former Cigarettes Smokeless Tobacco: Never Comments:Quit 25 years ago Comments Unknown Sex and Gender Information Value Date Recorded Sex Assigned at Female 03/16/2022 11:59 AM EST Legal Sex Female 11:56 AM EST Gender Identity Female 03/16/2022 11:59 AM EST Sexual Orientation Straight 03/16/2022 11 :59 AM EST documented as of this encounter Plan of Treatment Not on file documented as of this encounter Visit Diagnoses Not on filedocumented in this encounter Care Teams Fuel Cell Technician Relationship Specialty Start Date End Date Pcp, Not Required [address] [place] [address] PCP - General 03/16/22 07/14/22 Sophie Duke MD [address] [place] [address] PCP - General Internal Medicine 07/15/22 documented as of this encounter Additional Source Comments The information contained in this document represents components of the legal health record. It is not the complete legal health record.[facility]
--- OUTSIDE RECORDS SUMMARY | 2024-11-20 11:27 | XMS_ITS | Encounter Summary ---
Author Organization [facility] Address [address] [place] [address] Phone Care Team Providers Care Animal Caretaker Supervisor Name Role Phone Pcp, Not Required Primary Care Provider Sophie De Leon MD Primary Care Provider Encounter Details Date Type Department Care Team (Late st Contact Info) Description 07/10/2022 Procedure Pass [facility], [address], [address], [address] [place] [address] Social History Tobacco Use Types Packs/Day Years [...] on filedocumented in this encounter Care Teams Animal Caretaker Supervisor Relationship Specialty Start Date End Date Pcp, Not Required [address] [place] [id number] PCP - General 03/16/22 07/14/22 Sophie Duke MD [address] [place] [address] PCP - General Internal Medicine 07/15/22 documented as of this encounter Additional Source Comments The information contained in this document represents components of the legal health record. It is not the complete legal health record.[facility]
--- OUTSIDE RECORDS SUMMARY | 2024-11-20 11:27 | XMS_ITS | Clinical Summary ---
Author Organization [facility] Address [address] [address] Phone Care Team Providers Care Can Filling And Closing Machine Tender Name Role Phone Sophie Duke MD Primary Care Provider Allergies No known active allergies Medications buPROPion (WELLBUTRIN XL) 150 MG ER 24 hr tablet 06/22/2022 Active buPROPion (WELLBUTRIN XL) 300 MG ER 24 hr tablet 06/22/2022 Active FLUoxetine (PROZAC) 20 MG capsule 06/22/20[address] Active zoledronic acid/mannitol-wa ter (RECLAST IV) Inject into the vein. Active Active Problems No known active problems Social History Tobacco Use Types Packs/Day Years Used Date Smoking Tobacco: Former Cigarettes Smokeless Tobacco: Never Tobacco Cessation:Counseling Given: Not Answered Comments:Quit 25 years ago Education Answer Date Recorded Are you interested in more education? Not on pete e 07/15/2022 Are you concerned about learning? Not on file 07/15/2022 No 07/15/2022 No 07/15/2022 Digital Access Answer Date Recorded No 08/12/2022 No 08/12/2022 Reliable internet access at home? Not on file 08/12/2022 Device with a working camera? Not on file Comments Unknown Sex and Gender Information Value Date Recorded Sex Assigned at Female 03/16/2022 11:59 AM EST Legal Sex Female 11:56 AM EST Gender Identity Female 03/16/2022 11:59 AM EST Sexual Orientation Straight 03/16/2022 11 :59 AM EST Last Filed Vital Signs Vital Sign Reading Time Taken Comments Blood Pressure 131/63 01/22/2023 8:00 AM EST Pulse 81 01/22/2023 8:00 AM EST Temperature - - Respiratory Rate 16 07/10/2022 10:15 AM EDT Oxygen Saturation 96% 01/22/2023 8:00 AM EST Inhaled Oxygen Concentration - - Weight 50.8 kg (112 lb) 01/03/2023 10:08 AM EDT Height 154.9 cm (5' 1 ) 01/03/2023 10:08 AM EDT Body Mass Index 21.16 01/03/2023 10:08 AM EDT Plan of Treatment Health Maintenance Due Date Last Done Comments Adult Td,Tdap Booster 1953 LIPID PANEL 1953 DEPRESSION SCREENING 1965 SMOKING Hx and SMOKELESS TOB ACCO SCREENING 1966 HEPATITIS C SCREENING 1971 MAMMOGRAM 1993 COLOGUARD 1998 COLONOSCOPY 1998 COLORECTAL CANCER SCREENING 1998 FIT TEST 1998 FOBT 1998 SIGMOIDOSCOPY 1998 VIRTUAL COLONOSCOPY 1998 PNEUMOCOCCAL VACCINES (50+ y ears) (1 of 1 - PCV) 2003 ZOSTER VACCINES (1 of 2) 2003 OSTEOPOROSIS SCREENING INITI AL (ONE-TIME) 2018 COVID-19 VACCINE (1 - 2023-2 5 season) 2023 RSV VACCINE (1 - 1-dose 75+ series) 2028 HEPATITIS A VACCINES Aged Out No long er eligible based on patient's age to complete this topic HIB VACCINES Aged Out No longer eligi ble based on patient's age to complete this topic MENINGOCOCCAL VACCINES (ACWY) Aged Out No longer eligible based on patient's age to complete this topic MENINGOCOCCAL VACCINES (B) Aged Out N o longer eligible based on patient's age to complete this topic Medical Devices Not on file Insurance MEDICARE PART A & B Member Subscriber Plan / Payer (Ef fective 2018-Present) Name:Francoise Anaya Member ID:[id number] Relation to Subscriber:Self Name:Francoise Anaya Subscriber ID:[id number] Payer ID:[id number] Group ID:Not on file Type:Medicare Address: [employer] [address] MEDICARE SUPPLEMENT MEDICARE PART A & B [facility] MEDICARE SUPPLEMENT [facility] Address: [place] [phone] MEDICARE PART A & B [id number] [place] [address] MEDICARE SUPPLEMENT MEDICARE PART A & B [facility] MEDICARE SUPPLEMENT [facility] Address: [facility] [id number] [place] [address] MEDICARE PART A & B MEDICARE SUPPLEMENT [facility] Address: [facility] [id number] [place] [address] MEDICARE PART A & B [facility] MEDICARE SUPPLEMENT Care Teams Can Filling And Closing Machine Tender Relationship Specialty Start Date End Date Sophie Duke MD [facility] [address] PCP - General Internal Medicine 07/15/22 Additional Source Comments The information contained in this document represents components of the legal health record. It is not the complete legal health record.[facility]
== END 2024-11-20 10:11 | disposition home or self-care (01) ==
LOC: HO.HMGCLDS 10:10
PROVIDERS: PCP Internal Medicine; Visit Provider Internal Medicine
DX: Z13.89 Encounter for screening for other disorder (principal)

== ENCOUNTER 2024-11-27 09:24 | Outpatient (AMB) | payer MEDICARE, SELFPAY ==
[2024-11-27 10:15] VITALS: BP 110/80; PULSE 61; RESP 16; TEMP 36.7; O2SAT 97; BMI 18.2
--- NOTE | 2024-11-27 10:15 | A.OFFVIS_ITS ---
Intake Vital Signs 11/27/24 10:15 Height 5 ft 3 in Weight 103 lb BMI 18.2 BP 110/80 Blood Pressure Location Lt brachial Position Sitting Respiration 16 Pulse 61 Pulse Source Pulse Oximeter Temp 98.1 F Temp Source Oral Pulse Oximetry (%) 97 Oxygen Delivery Method Room Air Intake Visit Reasons: SWV Intake Note: Pt is here today for her SWV: Last mammogram 07/06/23, bone denisty scan 10/10/22, colonoscopy 08/16/22 Allergies No Known Allergies (No Known Allergies*) Allergy (Verified 11/27/24 10:30) Medication List - Last Reconciled 11/27/24 by Sophie Duke MD bupropion HCl XL 450 mg PO DAILY famotidine (Pepcid) 20 mg PO BEDTIME fluoxetine 40 mg PO DAILY omeprazole 20 mg PO BID pen needle, diabetic (Comfort EZ Pen [place]) As directed HPI SWV HPI Details SWV ?68 year old lady with depression, currently stable and controlled on present treatment, has osteoporosis, and history of ascending aortic aneurysm and recently found to have achalasia on barium swallow, here today for her subsequent Annual Wellness Visit. She is up-to-date with her screening mammogram with benign findings, and had a bone density scan done in 2022 which showed presence of osteoporosis in right femoral neck and right femur and osteopenia lumbar spine. She was being seen by Dr. Pascual and has been on Prolia now for the last 2 years, due for her next infusion. Looking for referral to a new chemical checker. She had her screening mammogram done 07/06/2023 with normal findings , due again this year. Up-to-date with her lipid screening, done in 2021 with normal findings and had normal fasting glucose done in 2022. She is up-to-date with her pneumonia vaccine, has had her COVID vaccines but not yet the booster, due for her yearly flu vaccine and has not yet had her shingles vaccination, advised to get vaccinated. .? Medical / Social History Reviewed? Past Medical History ?Yes . ? [place] of Care / Care Team list updated ?Yes . ? Surgical/Hospitalization History ?Yes . ? Current Medications (including OTC and supplements) ?Yes . ? Family History ?Yes . ? Tobacco Control form ?Yes . ? AUDIT-C (Alcohol use) form ?Yes . ? Illicit drug use in Social History ?Yes . ? Current diagnosis of depression? ?Yes, followed by Sariah Sims ? Appropriate PHQ2/PHQ9 completed ?Yes . ? Data entered by ?Grain Wafer Machine Operator and reviewed by provider ? Fall Risk ? Fall History? Have you had any falls with injury in the past year? ?No . ? Have you had two or more falls in the past year? ?No . ? Fall Risk Assessment: ?No falls in the past year . ? HRA filled out by the patient, reviewed by Provider and scanned. ?SWV ? Balance? Romberg ?Yes . ? Tandem walk ?Yes . ? Walk and Turn ?Yes . ? Rise from sit to stand ?Yes . ?Vision? Corrective lens ?no ? Vision screen ? Up-to-date, goes to [facility] for her routine eye exam ?Hearing? Whisper test ?pass . ?Written Plan?Completed. See Patient Documents. Up-to-date with her MOLST and healthcare proxy form completed in 2022? HPI Comments History of Present Illness Details - The patient is a 69-year-old female pr esenting with management of cricopharyngeal achalasia, -: Reports difficulty swallowing solids and liquids, with food getting stuck. A barium swallow test last year showed mild to moderate cricopharyngeal achalasia. - Experiences heartburn and hiccups, wit h weight fluctuations due to eating difficulties. Had an upper endoscopy done May 2023 which showed presence of Chávez's esophagus, had balloon dilatation done and placed on omeprazole 20 mg twice a day in addition to famotidine 20 mg at bedtime for breakthrough heartb urn symptoms. No showed follow-up appointment a month after EGD done last year, now wanting to be referred back to GI due to persistent symptoms . - Osteoporosis: Diagnosed with osteoporo sis, with bone thinning in the forearm, thigh, and lower back, at high risk for fractures. Previously was seen by Dr. Pascual who has started on Prolia, needs a referral back to endocrine clinic. - Missed follow-up for infusion treatmen t due to missed appointments. - [facility] Medical History (Updated 11/27/24 @ 11:04 by Sophie Duke MD) Difficulty swallowing Chávez's esophagus determined by endoscopy Achalasia, esophageal Diverticulosis Memory change Vitamin D deficiency Osteoporosis Colon cancer screening Depression Thinning hair Shortness of breath on exertion Surgical History H/O colonoscopy Hx of right knee surgery History of repair of left hip joint Hx of appendectomy Family History Father CAD (coronary artery disease) Mother Essential hypertension Osteoporosis Paternal Aunt Depression Sister Essential hypertension Osteoporosis Family/Other Breast cancer Other Mental health disorder Social History Housing: Apartment Are you a primary director of career resources to a significant other at home: No Do you presently have visiting nurse or other home services: No Alcohol intake: current Alcohol intake frequency: holidays/special occasions only Patient Tobacco Use Status: Former Tobacco user Tobacco use type: Cigarette Years Smoked: 15 e-Cigarette/Vaping Use: Never Used Second Hand Smoke Exposure: No service: No Current occupational status: employed and retired Cognitive needs: No Hearing needs: No Vision needs: No Female Reproductive History Menstrual Age of Menarche: 9 Questionnaire Medicare Wellness Checkup What [age] What gender do you identify with?: female During the past 4 weeks, how much have you been bothered by emotional problems such as feeling anxious, depressed, irritable, sad or downhearted, and blue?: quite a bit During the past 4 weeks, has your physical & emotional health limited your social activities with family, friends, neighbors, or groups?: quite a bit During the past 4 weeks, how much bodily pain have you generally had?: very mild pain During the past 4 weeks, was someone available to help you if you needed & wanted help?: yes, quite a bit During the past 4 weeks, what was the hardest physical activity you could do for at least 2 minutes?: moderate Can you get to places out of walking distance without help? (For eg., can you travel alone on buses, taxis or drive your car?): Yes Can you go shopping for groceries or clothes without someone's help?: Yes Can you prepare your own meals?: Yes Can you do your housework without help?: Yes Because of any health problems, do you need the help of another person with your personal care needs such as eating, bathing, dressing or getting around the house?: No Can you handle your own money without help?: Yes During the past 4 weeks, how would you rate your health in general?: good During the past 4 weeks how have things been going for you?: good & bad parts about equal Are you having difficulties driving your car?: no Do you always fasten your seat belt when you are in a car?: yes, usually During past 4 weeks, have you been bothered by the following: never: Falling or dizzy when standing up, Sexual problems?, Teeth or denture problems? and Problems using the telephone? and always: Trouble eating well? and Tiredness or fatigue? Have you fallen 2 or more times in the past year?: No Are you afraid of falling?: No Are you a smoker?: no During the past 4 weeks, how many drinks of wine, beer, or other alcoholic beverages did you have?: 1 drink or less per week Do you exercise for about 20 minutes 3 or more times a week?: yes, some of the time Have you been given information to help with the following?: no: Hazards in your house that might hurt you? and no: Keeping track of your medications? How often do you have trouble taking medicines the way you have been told to take them?: I always take medicine as prescribed How confident are you that you can control & manage most of your health problems?: somewhat confident What is your race?: White Mini Mental State Exam (MMSE) Orientation What is the (year) (season) (date) (day) (month)?: year (2024), season (summer), date (11/27/24), day () and month () Where are we (state) (county) (town or city) (hospital) (floor)?: state ([facility]), county ([place]), town or city ([place]) and hospital/clinic ([facility]) Score Score: 9 Activity of Daily Living Bathing - sponge bath, tub bath or shower: receives no assistance (gets in/out by self, if usual bathing means Dressing - getting clothes from closets & drawers, including inner/outer garments & fasteners.: gets clothes & gets completely dressed without help Toileting - going to the 'toilet room' for urine/bowel elimination & cleaning self/arranging clothes: goes to toilet room, cleans self, arranges clothes without help Transfer: moves in & out of bed and chair without help (may use support object) Continence: controls urination/bowel movements completely by self Feeding: feeds self without help Total Score: 0 Information obtained from: patient Using telephone: independent Traveling: independent Shopping: independent Preparing meals: independent Housework: independent Taking medicine: independent Managing money: independent PHQ-9 Over the last 2 weeks, how often have you been bothered by any of the following problems? 1. Little interest or pleasure in doing things: more than half the days 2. Feeling down, depressed, or hopeless: several days 3. Trouble falling or staying asleep, or sleeping too much: nearly every day 4. Feeling tired or having little energy: more than half the days 5. Poor appetite or overeating: several days 6. Feeling bad about yourself - or that you are a failure or have let yourself or your family down: more than half the days 7. Trouble concentrating on things, such as reading the newspaper or watching television: more than half the days 8. Moving or speaking so slowly that other people could have noticed. Or the opposite - being so fidgety or restless that you have been moving around a lot more than usual: several days 9. Thoughts that you would be better off or of hurting yourself in some way: not at all Total score: 14 Depression Screening Interpretation: Positive (Sees Sariah Sims and a therapist in [place]) Depression Screening Follow-up: Existing condition, In treatment and Community Mental Health Worker F/U Depression Screening Done: Yes 50591 - PHQ-9 Billing: Yes Source: Developed by Drs. Roberto Juarez, Veda Mon, Sundar Hill and colleagues, with an educational luann from [place]. Review of Systems Const Reports no additional complaints and Denies weight loss ENT Reports no additional complaints Resp Reports no additional complaints GI Reports as per HPI Physical Exam Vital Signs: Last Vital Signs Temp 98.1 F 11/27/24 10:15 Pulse 61 11/27/24 10:15 Resp 16 11/27/24 10:15 BP 110/80 11/27/24 10:15 Pulse Ox 97 11/27/24 10:15 Oxygen Delivery Method Room Air 11/27/24 10:15 BMI result Body Mass Index 18.2 Const General: no acute distress Nutritional Appearance: underweight HEENT Mouth: Normal oral and palatal mucosa present and moist mucous membranes Neck Neck: Yes full ROM, Yes no lymphadenopathy and Yes supple Resp Effort & Inspection: normal respiratory effort and able to speak in complete sentences Auscultation: clear to auscultation bilaterally Cardio Rate: regular rate Rhythm: regular rhythm Heart sounds: S1 normal heart sound present and S2 normal heart sound present GI Inspection: Yes normal to inspection Palpation (GI): Soft to palpation, nontender, no guarding and no masses Auscultation: normal bowel sounds Skin General skin exam: turgor normal and dry skin Assessment & Plan Assessment & Plan (1) Encounter for subsequent annual wellness visit (AWV) in Medicare patient: Code(s): Z00.00 - Encounter for general adult medical examination without abnormal findings Plan: Medical wellness checklist reviewed, discussed with patient and updated. Scheduled for mammogram screening, repeat liver enzymes, hemoglobin/ hematocrit, fasting lipid panel, fasting glucose and vitamin-D level ordered. She is up-to-date with her pneumonia vaccine, has had her COVID vaccines but not yet the booster, due for her yearly flu vaccine and has not yet had her shingles vaccination, advised to get vaccinated (2) Osteoporosis: Code(s): M81.0 - Age-related osteoporosis without current pathological fracture Qualifiers: Osteoporosis type: age-related Presence of current pathological fracture: without current pathological fracture Qualified Code(s): M81.0 - Age- related osteoporosis without current pathological fracture Plan: Previously was on Prolia, referred back to endocrine clinic for further treatment (3) Difficulty swallowing: Code(s): R13.10 - Dysphagia, unspecified Qualifiers: Dysphagia type: unspecified Qualified Code(s): R13.10 - Dysphagia, unspecified Plan: Referred to Gastroenterology for further evaluation and treatment currently on omeprazole and famotidine (4) Achalasia, esophageal: Code(s): K22.0 - Achalasia of cardia Plan: GI consult ordered (5) Chávez's esophagus determined by endoscopy: Code(s): K22.70 - Chávez's esophagus without dysplasia Plan: Continue omeprazole 20 mg b.i.d and famotidine at bedtime, still with recurrent heartburn symptoms., referred back to GI Clinic (6) Depression: Comment: Therapist at [place] and followed by Sariah Smis Code(s): F32.9 - Major depressive disorder, single episode, unspecified Qualifiers: Active/Remission status: in full remission Depression Type: major depressive disorder Major depression recurrence: recurrent Qualified Code(s): F33.42 - Major depressive disorder, recurrent, in full remission Plan: Currently on bupropion HCL XL 450 mg daily and fluoxetine 40 mg daily, followed by Sariah rectus her psychiatrist and sees therapist regularly Orders: Orders MM tomosynthesis screening BI 11/27/24 Z12.31 - Encounter for screening mammogram for malignant neoplasm of breast Aspartate Amino Transferase 11/27/24 E55.9 - Vitamin D deficiency, unspecified, Z13.1 - Encounter for screening for diabetes mellitus, Z13.220 - Encounter for screening for lipoid disorders Hemoglobin and Hematocrit 11/27/24 K22.0 - Achalasia of cardia, K22.70 - Chávez's esophagus without dysplasia Lipid Panel 11/27/24 E55.9 - Vitamin D deficiency, unspecified, Z13.1 - Encounter for screening for diabetes mellitus, Z13.220 - Encounter for screening for lipoid disorders Vitamin D 25-OH Total 11/27/24 E55.9 - Vitamin D deficiency, unspecified, Z13.1 - Encounter for screening for diabetes mellitus, Z13.220 - Encounter for screening for lipoid disorders Glucose Fasting 11/27/24 E55.9 - Vitamin D deficiency, unspecified, Z13.1 - Encounter for screening for diabetes mellitus, Z13.220 - Encounter for screening for lipoid disorders Alanine Aminotransferase 11/27/24 E55.9 - Vitamin D deficiency, unspecified, Z13.1 - Encounter for screening for diabetes mellitus, Z13.220 - Encounter for screening for lipoid disorders Vitamin B12 and Folate 11/27/24 F33.42 - Major depressive disorder, recurrent, in full remission, K22.0 - Achalasia of cardia, K22.70 - Chávez's esophagus without dysplasia, R13.10 - Dysphagia, unspecified Referrals Endocrinology Referral M81.0 - Age-related osteoporosis without current pathological fracture Gastroenterology Referral K22.0 - Achalasia of cardia, K22.70 - Chávez's esophagus without dysplasia, R13.10 - Dysphagia, unspecified Quality Reporting (2019) Depression/Bipolar (159/160/161/177) PHQ-9: Total score: 14 Coding Level of Care Code Medicare Subsequent (G0439) Est Pt Level 4 (18365) Diagnoses Encounter for subsequent annual wellness visit (AWV) in Medicare patient Z00.00 Age-related osteoporosis without current pathological fracture M81.0 Osteoporosis type: age-related Presence of current pathological fracture: without current pathological fracture Dysphagia, unspecified type R13.10 Dysphagia type: unspecified Achalasia, esophageal K22.0 Chávez's esophagus determined by endoscopy K22.70 Recurrent major depressive disorder, in full remission F33.42 Active/Remission status: in full remission Depression Type: major depressive disorder Major depression recurrence: recurrent Additional Codes PHQ-9 - 18440 - PHQ-9 Billing: Yes ([id number])
--- OUTSIDE RECORDS SUMMARY | 2024-11-27 10:53 | XMS_ITS | Encounter Summary ---
Author Organization [facility] Address [address] [place] [address] Phone Care Team Providers Care Child Care Group Leader Name Role Phone Pcp, Not Required Primary Care Provider Sophie De Leon MD Primary Care Provider Encounter Details Date Type Department Care Team (Late st Contact Info) Description 07/10/2022 Procedure Pass [facility] [address] [place] [address] Social History Tobacco Use Types Packs/Day Years [...] on filedocumented in this encounter Care Teams Child Care Group Leader Relationship Specialty Start Date End Date Pcp, Not Required [address] [place] [address] PCP - General 03/16/22 07/14/22 Sophie Duke MD [address] [address] [address] PCP - General Internal Medicine 07/15/22 documented as of this encounter Additional Source Comments The information contained in this document represents components of the legal health record. It is not the complete legal health record.[facility]
--- OUTSIDE RECORDS SUMMARY | 2024-11-27 10:53 | XMS_ITS | Clinical Summary ---
Author Organization [facility] Address [address] [address] Phone Care Team Providers Care Manager Labor Delivery Name Role Phone Sophie Duke MD Primary [...] 2003 OSTEOPOROSIS SCREENING INITI AL (ONE-TIME) 2018 INFLUENZA VACCINE (#1) 2024 COVID-19 VACCINE ( - 2023-2 5 season) 2024 RSV VACCINE (1 - 1-dose 75+ series) [...] file Insurance MEDICARE PART A & B [id number] [place] [address] MEDICARE SUPPLEMENT MEDICARE PART A & B [facility] MEDICARE SUPPLEMENT MEDICARE PART A & B MEDICARE SUPPLEMENT MEDICARE PART A & B MEDICARE SUPPLEMENT MEDICARE PART A & B Member Subscriber Plan / Payer (Ef fective 2018-Present) Name:Francoise Anaya Member ID:[id number] Relation to Subscriber:Self Name:Francoise Anaya Subscriber ID:[id number] Payer ID:[id number] Group ID:Not on file Type:Medicare Address: [facility] [employer] [facility] [address] [place] [phone] [facility] MEDICARE SUPPLEMENT MEDICARE PART A & B [facility] MEDICARE SUPPLEMENT Care Teams Manager Labor Delivery Relationship Specialty Start Date End Date Sophie Duke MD [address] [place] [address] PCP - General Internal Medicine 07/15/22 Additional Source Comments The information contained in this document represents components of the legal health record. It is not the complete legal health record.[facility]
--- OUTSIDE RECORDS SUMMARY | 2024-11-27 10:53 | XMS_ITS | Patient Health Record ---
Author Organization [facility] Address [address] [place] [id number] Care Team Providers Care Event Planning Manager Name Role Phone Shen Mitchell Jr [phone] Reason For Referral No Information Plan Of Treatment No Information
--- OUTSIDE RECORDS SUMMARY | 2024-11-27 10:53 | XMS_ITS | Encounter Summary ---
Author Organization [facility] Address [address] [facility] [address] [place] [address] Phone Care Team Providers Care Roofer Vinyl Coating Name Role Phone Pcp, Not Required Primary Care Provider Sophie De Leon MD Primary Care Provider Encounter Details Date Type Department Care Team (Late st Contact Info) Description 07/10/2022 Procedure Pass [facility] [place], [address] [facility], [address] Floor, [address] [place] [address] Social History Tobacco Use Types Packs/Day Years [...] on filedocumented in this encounter Care Teams Roofer Vinyl Coating Relationship Specialty Start Date End Date Pcp, Not Required [address] [place] [id number] PCP - General 03/16/22 07/14/22 Sophie Duke MD [address] [place] [address] PCP - General Internal Medicine 07/15/22 documented as of this encounter Additional Source Comments The information contained in this document represents components of the legal health record. It is not the complete legal health record.[facility]
== END 2024-11-27 16:45 | disposition home or self-care (01) ==
LOC: HO.HMCC 09:24
PROVIDERS: PCP Internal Medicine; Visit Provider Internal Medicine
DX: Z00.00 Encounter for general adult medical examination without abnormal findings (principal); M81.0 Age-related osteoporosis without current pathological fracture; R13.10 Dysphagia, unspecified; K22.0 Achalasia of cardia; K22.70 Barrett's esophagus without dysplasia; F33.42 Major depressive disorder, recurrent, in full remission

== ENCOUNTER → 2024-11-27 09:24 | Outpatient (BNVA) | payer MEDICARE, SELFPAY | PROVIDERS: PCP Internal Medicine; Visit Provider Internal Medicine | DX: Z00.00 Encounter for general adult medical examination without abnormal findings (principal); M81.0 Age-related osteoporosis without current pathological fracture; R13.10 Dysphagia, unspecified; K22.70 Barrett's esophagus without dysplasia; K22.0 Achalasia of cardia; F33.42 Major depressive disorder, recurrent, in full remission; E55.9 Vitamin D deficiency, unspecified | CPT/HCPCS: 96127; 99212 ==

== ENCOUNTER 2024-12-09 09:58 | Outpatient (AMB) | payer MEDICARE, SELFPAY ==
--- NOTE | 2024-12-09 10:00 | MHC.OFFVIS ---
Vital Signs 12/09/24 10:01 Height 5 ft 3 in Weight 104 lb 15.04 oz BMI 18.6 BP 96/70 Blood Pressure Location Rt brachial Position Sitting Pulse 59 Pulse Source Pulse Oximeter Pulse Oximetry (%) 98 Oxygen Delivery Method Room Air Intake Visit Reasons: Age-related osteoporosis without current pathologi Intake Note: Patient present today for age-related osteoporosis. 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 First diagnosed in 2020 with her most recent bone density. Has never been treated. After her initial visit with me we completed a biochemical assessment for secondary causes of Osteoporosis. This revealed high normal calcium, but was otherwise WNL. Labs were repeated and were completely WNL. She was recommended for treatment with Evenity, but this was denied by her insurance. Prolia was cost prohibitive for her. She opted for IV Reclast and was scheduled for her first infusion 11/16/2021. She had a vasovagal reaction and was sent to the ED emergently. She did not receive her IV Reclast. She is seen today in F/U. Has 1-2 servings of dietary calcium per day in the form of cottage cheese and hot chocolate. She takes Calcium carbonate 600 mg PO daily. Takes Vitamin D 50,000 IU once a week. Denies ever using PPI, anticoagulant, antiepileptic or glucocorticoid medication. Does weight bearing exercise 7 days per week in the form of walking for 45 minutes at a time. Fracture history: Fracture of the L hip in 2018 after slipping on ice, this was a fragility fracture. 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 Menses was always regular. . She did not breastfeed. Menopause was 43. She used HRT for 1 year afterwards. Denies history of Kidney stones: Family history of Osteoporosis in her Mother and Sister. UTD on dental cleanings and sees dentist every 6 months. No planned upcoming dental work or extractions. DXA dated 09/14/2020: FINDINGS: AP SPINE L1-L3 (excluding L4): The data of L1-L4 has been changed to exclude the L4 vertebral body, because degenerative change at this level may cause overestimation of lumbar spine density. Current: BMD 0.925 g/cm2, Z-score 0.0, T-score -2.0, osteopenia, 9.2% decrease from baseline (<5% change is not significant). Baseline: BMD 1.019 g/cm2. RIGHT FEMUR, NECK: Current: BMD 0.625 g/cm2, Z-score -1.1, T-score -3.0, osteoporosis. Baseline: BMD 0.795 g/cm2. RIGHT FEMUR, TOTAL: Current: BMD 0.643 g/cm2, Z-score -1.3, T-score -2.9, osteoporosis, 22.5% decrease from baseline (<5% change is not significant). Baseline: BMD 0.830 g/cm2. Labs: Laboratory Tests 05/08/22 05/08/22 05/09/22 08:10 08:10 07:45 Sodium 138 Potassium 4.9 Creatinine 0.75 Estimated GFR > 60 N-Telopeptide X-linked 68 25-OH Vitamin D Total 46.0 PTH Intact 24 Calcium (PTH Intact) 9.8 Repeat DEXA 10/10/2022 FINDINGS: RIGHT FEMUR, NECK: Current: BMD 0.682 g/cm2, Z-score -0.5, T-score -2.6, osteoporosis. Prior: BMD 0.625 g/cm2. Baseline: BMD 0.795 g/cm2. RIGHT FEMUR, TOTAL: Current: BMD 0.661 g/cm2, Z-score -0.9, T-score -2.7, osteoporosis, 2.8% increase from previous, 20.4% decrease from baseline (<5% change is not significant). Prior: BMD 0.643 g/cm2. Baseline: BMD 0.830 g/cm2. AP SPINE L1-L3 excluding L4. L4 excluded related to increased bony density from degenerative sclerosis. Current: BMD 0.945 g/cm2, Z-score 0.4, T-score minus 1.9, osteopenia, 2.2% increase from previous, 7.3% decrease from baseline (<5% change is not significant). Prior: BMD 0.925 g/cm2. Baseline: BMD 1.019 g/cm2. LEFT FOREARM RADIUS 33%: BMD 0.656 g/cm2, Z-score -0.7, T-score -2.5, osteoporosis. Received 2 nd dose of Reclast . No fx since 2018. Discussed use of anabolic agents last visit The patient is a 69-year-old female presenting for management of osteoporosis and evaluation of treatment options to prevent further fractures. The patient has a history of osteoporosis, which has been previously managed with Reclast, although she only received one or two doses due to issues with reimbursement for Evenity. She has not taken Prolia in the past. The patient experienced a hip fracture in the past, which has increased her risk for future fractures. The patient's bone density remains low, necessitating treatment to enhance bone strength and density. [facility] Medical History (Updated 11/27/24 @ 11:04 by Sophie Duke MD) Difficulty swallowing Chávez's esophagus determined by endoscopy Achalasia, esophageal Diverticulosis Memory change Vitamin D deficiency Osteoporosis Colon cancer screening Depression Thinning hair Shortness of breath on exertion Surgical History H/O colonoscopy Hx of right knee surgery History of repair of left hip joint Hx of appendectomy Family History Father CAD (coronary artery disease) Mother Essential hypertension Osteoporosis Paternal Aunt Depression Sister Essential hypertension Osteoporosis Family/Other Breast cancer Other Mental health disorder Social History Housing: Apartment Are you a primary care director rn to a significant other at home: No Do you presently have visiting nurse or other home services: No Alcohol intake: current Alcohol intake frequency: holidays/special occasions only Patient Tobacco Use Status: Former Tobacco user Tobacco use type: Cigarette Years Smoked: 15 e-Cigarette/Vaping Use: Never Used Second Hand Smoke Exposure: No service: No Current occupational status: employed and retired Cognitive needs: No Hearing needs: No Vision needs: No Female Reproductive History Menstrual Age of Menarche: 9 Assessment & Plan Assessment & Plan (1) Osteoporosis: Code(s): M81.0 - Age-related osteoporosis without current pathological fracture Category: Medical Qualifiers: Osteoporosis type: age-related Presence of current pathological fracture: without current pathological fracture Qualified Code(s): M81.0 - Age-related osteoporosis without current pathological fracture Plan: This 68-year-old white female with a history of osteoporosis with secondary workup negative. She received a dose of Reclast and had reaction to it. . 1. Osteoporosis The patient has a history of osteoporosis with a previous hip fracture, increasing her risk for future fractures. Reclast was previously administered, but reimbursement issues prevented the use of Evenity, which is considered the best option due to its ability to build bone strength and density. The patient's insurance status needs to be verified to explore the possibility of starting Evenity. I discussed with the patient the importance of managing her osteoporosis to prevent further fractures, given her history of a hip fracture and low bone density. We reviewed her previous treatments, including Reclast, and the challenges faced with obtaining Evenity due to reimbursement issues. I emphasized that Evenity would be the best choice if there is no history of recent cardiovascular events, and we need to verify her current insurance coverage to proceed. - Follow up with insurance to verify coverage for Evenity. - Monitor for any signs of new fractures and report immediately. The patient had an opportunity to ask questions regarding treatment plan. The patient expressed understanding and agreement with the above treatment plan. Patient was informed and verbally consented to the use of an ambient scribe for clinic note documentation during this visit. Medications: New Evenity (romosozumab-aqqg) 210 mg (2.34 mL) subcut QMONTH 2.34 mL 11RF NS Coding Level of Care Code Est Pt Level 3 (03916) Diagnoses Age-related osteoporosis without current pathological fracture M81.0 Osteoporosis type: age-related Presence of current pathological fracture: without current pathological fracture
[2024-12-09 10:01] VITALS: BP 96/70; PULSE 59; O2SAT 98; BMI 18.6
--- OUTSIDE RECORDS SUMMARY | 2024-12-09 12:02 | XMS_ITS | Patient Health Record ---
Author Organization [facility] Address [address] [place] [phone] Care Team Providers Care Resident Care Spec Name Role Phone Shen Mitchell Jr Reason For Referral No Information Plan Of Treatment No Information
--- OUTSIDE RECORDS SUMMARY | 2024-12-09 12:02 | XMS_ITS | Encounter Summary ---
Author Organization [facility] Address [address] [employer] [facility] [address] [place] [address] Phone Care Team Providers Care Music Composition Teacher Name Role Phone Pcp, Not Required Primary Care Provider Sophie De Leon MD Primary Care Provider Encounter Details Date Type Department Care Team (Late st Contact Info) Description 07/10/2022 Procedure Pass [facility] [place], Jay [address] [facility], 2nd Floor, [address] [place] [address] Social History Tobacco Use Types Packs/Day Years [...] on filedocumented in this encounter Care Teams Music Composition Teacher Relationship Specialty Start Date End Date Pcp, Not Required [address] [place] [id number] PCP - General 03/16/22 07/14/22 Sophie Duke MD [address] [place] [address] PCP - General Internal Medicine 07/15/22 documented as of this encounter Additional Source Comments The information contained in this document represents components of the legal health record. It is not the complete legal health record.[facility]
--- OUTSIDE RECORDS SUMMARY | 2024-12-09 12:02 | XMS_ITS | Clinical Summary ---
Author Organization [facility] Address [address] [address] Phone Care Team Providers Care Terrazzo Mechanic Name Role Phone Sophie Duke MD Primary [...] file Insurance MEDICARE PART A & B [id number] [place] [address] MEDICARE SUPPLEMENT MEDICARE PART A & B [facility] MEDICARE SUPPLEMENT MEDICARE PART A & B MEDICARE SUPPLEMENT MEDICARE PART A & B MEDICARE SUPPLEMENT MEDICARE PART A & B Member Subscriber Plan / Payer (Ef fective 2018-Present) Name:Francoise Anaya Member ID:[id number] Relation to Subscriber:Self Name:Francoise Anaya Subscriber ID:[id number] Payer ID:[id number] Group ID:Not on file Type:Medicare Address: [facility] [employer] [facility] [address] [place] [phone] [facility] MEDICARE SUPPLEMENT MEDICARE PART A & B [facility] MEDICARE SUPPLEMENT Care Teams Terrazzo Mechanic Relationship Specialty Start Date End Date Sophie Duke MD [address] [place] [address] PCP - General Internal Medicine 07/15/22 Additional Source Comments The information contained in this document represents components of the legal health record. It is not the complete legal health record.[facility]
--- OUTSIDE RECORDS SUMMARY | 2024-12-09 12:02 | XMS_ITS | Encounter Summary ---
Author Organization [facility] Address [address] [facility] [address] [place] [address] Phone Care Team Providers Care Shift Commander Name Role Phone Pcp, Not Required Primary Care Provider Sophie De Leon MD Primary Care Provider Encounter Details Date Type Department Care Team (Late st Contact Info) Description 07/10/2022 Procedure Pass [facility] [address] [place] [address] Social History Tobacco Use Types Packs/Day Years [...] on filedocumented in this encounter Care Teams Shift Commander Relationship Specialty Start Date End Date Pcp, Not Required [address] [place] [address] PCP - General 03/16/22 07/14/22 Sophie Duke MD [address] [facility] [place] [address] PCP - General Internal Medicine 07/15/22 documented as of this encounter Additional Source Comments The information contained in this document represents components of the legal health record. It is not the complete legal health record.[facility]
== END 2024-12-09 10:34 | disposition home or self-care (01) ==
LOC: HO.ENCR 09:58
PROVIDERS: PCP Internal Medicine; Visit Provider Internal Medicine Endocrinology, Diabetes & Metabolism
DX: M81.0 Age-related osteoporosis without current pathological fracture (principal)
CPT/HCPCS: 99213

== ENCOUNTER → 2024-12-09 09:58 | Outpatient (BNVA) | payer MEDICARE, SELFPAY | PROVIDERS: PCP Internal Medicine; Visit Provider Internal Medicine Endocrinology, Diabetes & Metabolism | DX: M81.0 Age-related osteoporosis without current pathological fracture (principal); K22.70 Barrett's esophagus without dysplasia; R13.10 Dysphagia, unspecified; R68.81 Early satiety; E55.9 Vitamin D deficiency, unspecified; R19.7 Diarrhea, unspecified; R10.9 Unspecified abdominal pain | CPT/HCPCS: 99212 ==

== ENCOUNTER 2024-12-09 14:30 | Outpatient (AMB) | payer MEDICARE, SELFPAY ==
--- NOTE | 2024-12-09 14:33 | A.OFFVIS_ITS ---
Vital Signs 12/09/24 14:34 Height 5 ft 3 in Weight 104 lb BMI 18.4 BP 124/62 Blood Pressure Location Rt brachial Position Sitting Pulse 66 Pulse Source Pulse Oximeter Pulse Oximetry (%) 96 Oxygen Delivery Method Room Air Intake Visit Reasons: Eval of Chávez's. Stat referral, Intake Note: Est pt for mgmt of Chávez's. PCP requested stat FUV. CC; C.O. early satiety, N+V, onset gradually over the last 3-4 mos per pt. Sx are chronic and progressively worsening. No prior hx of similar episodes. Hx of GERD which is currently tx with PPI. Claims Specialist Required: No Accompanied by: Self / Same As Patient Allergies No Known Allergies (No Known Allergies*) Allergy (Verified 12/09/24 10:05) HPI HPI Eval of Chávez's. Stat referral, : Details: LAST VISIT Cricopharyngeal achalasia Dysphagia GERD (gastroesophageal reflux disease) Epigastric pain Chávez's esophagus determined by endoscopy Plan Continue omeprazole twice a day and famotidine at bedtime. Discussed with patient avoiding dietary triggers and late night snacking. Patient will try to sleep on wedge pillow. Avoid eating for 3 hours before bedtime. Patient reports abdominal bloating, weight loss of almost 20 lb in his short period of time. Patient will be sent for CT scan to rule out pancreatic malignancy, cholelithiasis. I will see him 6 weeks, sooner on as needed basis. Patient is agreeable to this plan and verbalizes understanding of instructions. She was given the opportunity to ask questions and all questions answered. ? Thank you for allowing me to participate in her care Orders Blood Urea Nitrogen Today R10.[address] abdomen pelvis w IV con Today G89.29, R10.13, R10.9 TODAY'S VISIT: Patient is here today requested a visit. Last seen in May of last year. Patient was supposed to follow-up with of, however never did. Recently her symptoms of acid reflux, dyspepsia and trouble swallowing have returned and are getting worse. Patient lost 3 lb in little over a year. Diagnosed with Chávez's esophagus on endoscopy with positive biopsy in April of 2023. Currently patient is taking omeprazole and famotidine at bedtime. Patient reports occasional nausea with vomiting were symptoms of epigastric pain are severe. Patient reports that she is moving her bowels normally. Reports occasional abdominal distension not always related to meals. No postprandial abdominal pain PFSH Medical History Difficulty swallowing Chávez's esophagus determined by endoscopy Achalasia, esophageal Diverticulosis Memory change Vitamin D deficiency Osteoporosis Colon cancer screening Depression Thinning hair Shortness of breath on exertion Surgical History H/O colonoscopy Hx of right knee surgery History of repair of left hip joint Hx of appendectomy Family History Father CAD (coronary artery disease) Mother Essential hypertension Osteoporosis Paternal Aunt Depression Sister Essential hypertension Osteoporosis Family/Other Breast cancer Other Mental health disorder Social History Housing: Apartment Are you a primary career development counselor to a significant other at home: No Do you presently have visiting nurse or other home services: No Alcohol intake: current Alcohol intake frequency: holidays/special occasions only Patient Tobacco Use Status: Former Tobacco user Tobacco use type: Cigarette Years Smoked: 15 e-Cigarette/Vaping Use: Never Used Second Hand Smoke Exposure: No service: No Current occupational status: employed and retired Cognitive needs: No Hearing needs: No Vision needs: No Female Reproductive History Menstrual Age of Menarche: 9 Review of Systems Const Denies weight gain and Denies weight loss ENT Reports no additional complaints, Denies dysphagia and Denies odynophagia Card Reports no additional complaints Resp Reports no additional complaints GI Reports abdominal pain, Denies belching, Denies melena, Denies bloating, Denies change in bowel habits, Denies dysphagia, Denies excessive flatus, Denies dyspepsia, Reports heartburn, Denies diarrhea, Denies loose stools, Denies nausea, Denies odynophagia and Denies vomiting Reports no additional complaints Musc Reports no additional complaints Neuro Reports no additional complaints Psych Reports no additional complaints Endo Reports no additional complaints Physical Exam Vital Signs: Last Vital Signs Pulse 66 12/09/24 14:34 BP 124/62 12/09/24 14:34 Pulse Ox 96 12/09/24 14:34 Oxygen Delivery Method Room Air 12/09/24 14:34 BMI result Body Mass Index 18.4 Const General: healthy appearing, no acute distress and well developed Nutritional Appearance: well nourished Orientation/consciousness: patient oriented x3 Resp Effort & Inspection: normal respiratory effort, able to speak in complete sentences, no tracheal deviation and symmetric chest movement Auscultation: clear to auscultation bilaterally Cardio Rate: regular rate GI Inspection: Yes normal to inspection and No distended Palpation (GI): Soft to palpation, not firm, nontender and No hepatosplenomegaly present Auscultation: normal bowel sounds General: Yes no CVA tenderness Back/Spine/Pelvis Back: no CVA tenderness Skin General skin exam: elasticity normal, turgor normal and dry skin Neuro General: patient oriented x3 Psych Appearance: grossly normal Mental Status: mental status grossly normal Assessment & Plan Assessment & Plan (1) Difficulty swallowing: Code(s): R13.10 - Dysphagia, unspecified Category: Medical Qualifiers: Dysphagia type: unspecified Qualified Code(s): R13.10 - Dysphagia, uns pecified (2) Chávez's esophagus determined by endoscopy: Code(s): K22.70 - Chávez's esophagus without dysplasia Category: Medical (3) Postprandial epigastric pain: Code(s): R10.13 - Epigastric pain (4) Early satiety: Code(s): R68.81 - Early satiety Plan Patient was encouraged to take Nexium twice a day. Will hold famotidine for now and she can start taking sucralfate. May take it at bedtime and increase to 2 times a day if symptoms are worse in the afternoon. She will be sent for upper GI series. Will check transglutaminase, lipase, vitamin B12, folate, vitamin-D level. Patient will be sent for gastric emptying study as well. Patient reports early satiety. I will see her in 6-8 weeks. Patient was encouraged to call our office if her symptoms will get worse. She is agreeable to current plan of care and verbalizes understanding of instructions. She was given the opportunity to ask questions and all questions answered Thank you for allowing me to participate in her care Orders: Orders Lipase 12/09/24 R10.9 - Unspecified abdominal pain Vitamin B12 and Folate 12/09/24 R19.7 - Diarrhea, unspecified Vitamin D 25-OH (D2 and D3) 12/09/24 E55.9 - Vitamin D deficiency, unspecified Transglutaminase IgA 12/09/24 R10.9 - Unspecified abdominal pain NM gastric emptying study 12/09/24 R68.81 - Early satiety Referrals GI Procedure Notification Z12.11 - Encounter for screening for malignant neoplasm of colon Medications: New esomeprazole magnesium (Nexium) 20 mg PO BID 60 caps 4RF sucralfate 1 g PO BEDTIME 30 tabs 4RF R19.7 - Diarrhea, unspecified Discontinued omeprazole Discontinued Reason: Doctor's Order 20 mg PO BID 60 caps 4RF K21.9 - Gastro-esophageal reflux disease without esophagitis Evenity Discontinued Reason: Doctor's Order 210 mg (2.34 mL) subcut QMONTH 2.34 mL 11RF NS abaloparatide inject into abdomen; do not inject within 2 inches of belly button/navel; rotate sites Discontinued Reason: Doctor's Order 80 mcg (0.04 mL) subcut DAILY 1.56 mL 12RF On Hold famotidine (Pepcid) Hold Comment: Doctor's Order 20 mg PO BEDTIME 30 tabs 3RF K21.9 - Gastro- esophageal reflux disease without esophagitis Coding Level of Care Code Est Pt Level 4 (00375) Complex EM visit Add On G2211 Diagnoses Dysphagia, unspecified type R13.10 Dysphagia type: unspecified Chávez's esophagus determined by endoscopy K22.70 Postprandial epigastric pain R10.13 Early satiety R68.81 Time Spent (min) 40 Comment 25 minutes spent with patient and additional 10 minutes spent reviewing her records
[2024-12-09 14:34] VITALS: BP 124/62; PULSE 66; O2SAT 96; BMI 18.4
== END 2024-12-09 15:13 | disposition home or self-care (01) ==
LOC: HO.HGI 14:31
PROVIDERS: PCP Internal Medicine; Visit Provider Nurse Practitioner Family
DX: R13.10 Dysphagia, unspecified (principal); K22.70 Barrett's esophagus without dysplasia; R10.13 Epigastric pain; R68.81 Early satiety
CPT/HCPCS: 99214; G2211

== ENCOUNTER 2025-01-14 06:53 | Outpatient (REF) | payer MEDICARE, SELFPAY ==
--- OUTSIDE RECORDS SUMMARY | 2025-01-14 06:57 | XMS_ITS | Encounter Summary ---
Author Organization [facility] Address [address] [address] Phone Care Team Providers Care Senior Talent Management Consultant Name Role Phone Pcp, Not Required Primary Care Provider Sophie De Leon MD Primary Care Provider Encounter Details Date Type Department Care Team (Late st Contact Info) Description 07/10/2022 Procedure Pass [facility] US [address] [place] [address] Social History Tobacco Use Types Packs/Day Years [...] on filedocumented in this encounter Care Teams Senior Talent Management Consultant Relationship Specialty Start Date End Date Pcp, Not Required [address] [place] [address] PCP - General 03/16/22 07/14/22 Sophie Duke MD [address] [place] [address] PCP - General Internal Medicine 07/15/22 documented as of this encounter Additional Source Comments The information contained in this document represents components of the legal health record. It is not the complete legal health record.[facility]
--- OUTSIDE RECORDS SUMMARY | 2025-01-14 06:57 | XMS_ITS | Encounter Summary ---
Author Organization [facility] Address [address] [facility] [address] [place] [address] Phone Care Team Providers Care City Auditor Name Role Phone Pcp, Not Required Primary Care Provider Sophie De Leon MD Primary Care Provider Encounter Details Date Type Department Care Team (Late st Contact Info) Description 07/10/2022 Procedure Pass [facility] [place] [address] [facility], 2nd Floor, [address] [place] [address] Social History Tobacco Use Types Packs/Day Years [...] on filedocumented in this encounter Care Teams City Auditor Relationship Specialty Start Date End Date Pcp, Not Required [address] [place] [address] PCP - General 03/16/22 07/14/22 Sophie Duke MD [address] [facility] [place] [address] PCP - General Internal Medicine 07/15/22 documented as of this encounter Additional Source Comments The information contained in this document represents components of the legal health record. It is not the complete legal health record.[facility]
--- OUTSIDE RECORDS SUMMARY | 2025-01-14 06:57 | XMS_ITS | Clinical Summary ---
Author Organization [facility] Address [address] [employer] [address] [address] Phone Care Team Providers Care Military Source Operations Specialist Name Role Phone Sophie Duke MD Primary [...] VACCINE (#1) 2024 COVID-19 VACCINE ( - 2024-2 6 season) 2024 RSV VACCINE (1 - 1-dose [...] file Insurance MEDICARE PART A & [place] [address] [place] [address] MEDICARE SUPPLEMENT MEDICARE PART A & B [facility] MEDICARE SUPPLEMENT MEDICARE PART A & B MEDICARE SUPPLEMENT MEDICARE PART A & B Member Subscriber Plan / Payer (Ef fective 2018-Present) Name:Francoise Anaya Member ID:[id number] Relation to Subscriber:Self Name:Francoise Anaya Subscriber ID:[id number] Payer ID:[id number] Group ID:Not on file Type:Medicare Address: [employer] [address] [place] [address] [place] [address] MEDICARE SUPPLEMENT MEDICARE PART A & B [facility] MEDICARE SUPPLEMENT MEDICARE PART A & B [facility] MEDICARE SUPPLEMENT Care Teams Military Source Operations Specialist Relationship Specialty Start Date End Date Sophie Duke MD [address] [facility] [address] PCP - General Internal Medicine 07/15/22 Additional Source Comments The information contained in this document represents components of the legal health record. It is not the complete legal health record.[facility]
--- OUTSIDE RECORDS SUMMARY | 2025-01-14 06:57 | XMS_ITS | Patient Health Record ---
Author Organization [facility] Address [address] [place] [id number] Care Team Providers Care Detective Supervisor Name Role Phone Shen Mitchell Jr [phone] Reason For Referral No Information Plan Of Treatment No Information
[2025-01-14 10:06] LABS: Hematocrit 38.9 % (37.0-47.0); Hemoglobin 12.3 g/dl (12.0-16.0)
[2025-01-14 10:52] LABS: Folate 10.3 ng/mL (> or = 4.0); Vitamin B12 450 pg/mL (200-900)
[2025-01-14 11:28] LABS: Alanine Aminotransferase 20 U/L (0-31); Aspartate Amino Transferase 25 U/L (5-31); Cholesterol 192 mg/dL (<200); HDL Cholesterol 71 mg/dL (>40); Lipase 34 U/L (8-78); Triglycerides 67 mg/dL (<150)
[2025-01-15 06:04] LABS: Rubeola IgG (Measles) >300.00 AU/mL
[2025-01-17 13:07] LABS: Vitamin D 25-OH, D2 <4 ng/mL; Vitamin D 25-OH, D3 29 ng/mL; Vitamin D 25-OH, Total 29 ng/mL (30-100)
== END 2025-01-14 06:54 | disposition home or self-care (01) ==
LOC: HO.HMGCLDS 06:53
PROVIDERS: Absent Provider Nurse Practitioner Family; PCP Internal Medicine; Visit Provider Internal Medicine
DX: Z01.84 Encounter for antibody response examination (principal); K22.70 Barrett's esophagus without dysplasia; K22.0 Achalasia of cardia; E55.9 Vitamin D deficiency, unspecified; R10.9 Unspecified abdominal pain; R19.7 Diarrhea, unspecified; Z13.220 Encounter for screening for lipoid disorders; Z13.1 Encounter for screening for diabetes mellitus; Z13.6 Encounter for screening for cardiovascular disorders
CPT/HCPCS: 36415; 80061; 82306; 82607; 82746; 82947; 83690; 84450; 84460; 85014; 85018; 86364; 86735; 86762; 86765

== ENCOUNTER → 2025-02-04 07:56 | Outpatient (REF) | payer MEDICARE, SELFPAY ==
--- NOTE | ~2025-02-04 | NM_ITS ---
EXAMINATION: WV RADIONUCLIDE SOLID FOOD GASTRIC EMPTYING 4-HOUR STUDY CLINICAL INFORMATION: R68.81 - Early satiety COMPARISON: There are no prior studies available for comparison. TECHNIQUE: A standard meal consisting of 4 oz of Egg Beaters brand tagged with 0.99 mCi Tc-99m Sulfur Colloid, 8 oz water and 2 slices of toast with jelly was administered orally to the patient. Images were obtained using a dual head gamma camera in the anterior and posterior projections over of the stomach immediately post ingestion and at hourly intervals up to 4 hours post ingestion. The anterior and posterior counts at each time interval were averaged using the geometric mean and expressed as percentage of the immediate post ingestion counts. FINDINGS: There is visualization of activity in the stomach immediately post ingestion. As the study progresses, there is clearance of activity from the stomach and visualization of progressively increasing small bowel activity. By the end of the study, there is almost no retention noted in the stomach. Retention in the stomach at each time interval was: 1 hour 57% (normal 37%-90%) 2 hours 19% (normal 30%-60%) 3 hours 5% 4 hours 1% (normal 0%-10%) WV/WV gastric emptying study IMPRESSION: Normal 4-hour solid food gastric emptying study. For solid meal, rapid gastric emptying is less than 30% at 60 minutes. Delayed gastric emptying criteria is more than 60% remaining at 120 minutes or more than 10% at 240 minutes. The 4-hour value is the best discriminator of a normal or abnormal result). Gastric emptying study grading per JNMT Consensus Recommendations in 2008 (https://tech.snmjournals.org/content/36/44) Grade 1 (mild retention): 11-20% at 4h Grade 2 (moderate retention): 21-35% at 4h Grade 3 (severe retention): 36-50% at 4h Grade 4 (very severe retention): >50% retention at 4h Electronically signed by: Roberto Alvarez MD 02/04/2025 12:37 PM [facility]
--- OUTSIDE RECORDS SUMMARY | 2025-02-04 15:28 | XMS_ITS | Patient Health Record ---
Author Organization [facility] Address [address] [place] [id number] Care Team Providers Care Senior Manager Mergers & Acquisitions Name Role Phone Shen Mitchell Jr [phone] Reason For Referral No Information Plan Of Treatment No Information
--- OUTSIDE RECORDS SUMMARY | 2025-02-04 15:28 | XMS_ITS | Clinical Summary ---
Author Organization [facility] Address [address] [place] [address] [place] [address] Phone Care Team Providers Care Sports Internship Name Role Phone Sophie Duke MD Primary Care Provider Allergies No known active allergies Medications buPROPion (WELLBUTRIN XL) 150 MG ER 24 hr tablet 06/22/2022 Active buPROPion (WELLBUTRIN XL) 300 MG ER 24 hr tablet 06/22/2022 Active FLUoxetine (PROZAC) 20 MG capsule 06/22/2022 Active zoledronic acid/mannitol-wa ter (RECLAST IV) Inject into the vein. Active Active Problems No known active problems Encounters Date Type Department Care Team Description 01/24/2025 4:20 PM EST - 01/24/2025 7:39 PM EST Emergency [facility] [address] [place] [address] Discharge Disposition: Home or Self Care from Last 3 Months Social History Tobacco Use Types Packs/Day Years Used Date Smoking Tobacco: Former Cigarettes Smokeless Tobacco: Never Tobacco Cessation:Counseling Given: Not Answered Comments:Quit 25 years ago Alcohol Use Standard Drinks/Week Comments Yes 0 (1 standard drink = 0.6 oz pur e alcohol) Education Answer Date Recorded Are you interested in more education? Not on pete e 07/15/2022 Are you concerned about learning? Not on file 07/15/2022 No 07/15/2022 No 07/15/2022 Food Answer Date Recorded Within the past 6 months we worried whether our food would run out before we got money to buy more. Unable to assess 11/08/2 025 Within the past 6 months the food we bought just didn't last and we didn't have enough money to get more. Unable to assess 01/24/2025 Residential Stability Answer Date Recor ded What is your housing situation today? Unable to assess 01/24/2025 How many times have you moved in the past 12 mon ths? Unable to assess 01/24/2025 Paying for Meds Answer Date Recorded Do you have trouble paying for medicines? Unable to assess 01/24/2025 Paying Utility Bills Answer Date Record ed Do you have trouble paying y our heating or electricity bill? Unable to assess 01/24/2025 Transportation Answer Date Recorded Has the lack of transportati on kept you from medical appointments or from getting medications? Unable to assess 01/24/2025 Digital Access Answer Date Recorded No 01/24/2025 No 01/24/2025 Do you have reliable internet access at home? Un able to assess 01/24/2025 Do you have a device (e.g., phone, tablet, computer) with a working camera? Unable to assess 01/24/2025 Intimate Partner Violence Answer Date R ecorded Are you denied basic needs s uch as food, clothing, or medical care? No 01/24/2025 In the past 12 months have y ou been in a relationship with a person who hurts, threatens, or tries to control you? No 01/24/2025 Are you denied basic needs s uch as food, clothing, or medical care? No 01/24/2025 In the past 12 months have y ou been in a relationship with a person who hurts, threatens, or tries to control you? No 01/24/2025 Comments Unknown Sex and Gender Information Value Date Recorded Sex Assigned at Female 03/16/2022 11:59 AM EST Legal Sex Female 11:56 AM EST Gender Identity Female 03/16/2022 11:59 AM EST Sexual Orientation Straight 03/16/2022 11 :59 AM EST Last Filed Vital Signs Vital Sign Reading Time Taken Comments Blood Pressure 127/69 01/24/2025 7:35 PM EST Pulse 90 01/24/2025 7:35 PM EST Temperature 36.5 C (97.7 F) 01/24/2025 7:35 PM EST Respiratory Rate 14 01/24/2025 7:35 PM EST Oxygen Saturation 98% 01/24/2025 7:38 PM EST Inhaled Oxygen Concentration - - Weight 50.8 kg (112 lb) 01/24/2025 4:10 PM EST Height 154.9 cm (5' 1 ) 01/24/2025 4:10 PM EST Body Mass Index 21.16 01/24/2025 4:10 PM EST Plan of Treatment Health Maintenance Due Date [...] 2018 INFLUENZA VACCINE (#1) 2024 COVID-19 VACCINE (1 - 2024-2 6 season) 2024 RSV VACCINE (1 - 1-dose 75+ series) 2028 HEPATITIS A VACCINES Aged Out No long er eligible based on patient's age to complete this topic HIB VACCINES Aged Out No longer eligi ble based on patient's age to complete this topic IPV VACCINES Aged Out No longer eligi ble based on patient's age to complete this topic MENINGOCOCCAL VACCINES (ACWY) Aged Out No longer eligible based on patient's age to complete this topic MENINGOCOCCAL VACCINES (B) Aged Out N o longer eligible based on patient's age to complete this topic Medical Devices Not on file Procedures Procedure Name Priority Date/Time Associated Diagnosis Comments CBC AND DIFFERENTIAL STAT 01/24/2025 4:56 PM EST SALICYLATES STAT 01/24/2025 4:56 PM EST ACETAMINOPHEN LEVEL STAT 01/24/2025 4 :56 PM EST ETHANOL, BLOOD STAT 01/24/2025 4:56 PM EST LFTS (HEPATIC PANEL) STAT 01/24/2025 4:56 PM EST BASIC METABOLIC PANEL (BMP) STAT 01/24/2025 4:56 PM EST CBC AND DIFFERENTIAL STAT 01/24/2025 4:56 PM EST from Last 3 Months Results * (ABNORMAL) Ethanol, Blood (01/24/2025 4:56 PM EST) Pathologist [facility] Ethanol 51(H) Negative; <11 mg/dL 01/24/2025 5:47 PM [facility] Blood (Blood) Venipuncture / Unknown 01/24/2025 4:56 PM EST 01/24/2025 5:06 PM EST us Jaswinder Lopez MD LAB BLOOD BKR ORDERABLES Final Result [address] [address] * (ABNORMAL) CBC and Differential (01/24/2025 4:56 PM EST) [facility] WBC 9.43 4.00 - 11.00 K/uL 01/24/2025 5:09 PM [facility] RBC 3.95(L) 4.00 - 5.20 M/uL 01/24/2025 5:09 PM [facility] Hemoglobin 13.1 12.0 - 16.0 g/dL 01/24/2025 5:09 PM [facility] Hematocrit 39.4 36.0 - 46.0 % 01/24/2025 5:09 PM [facility] MCV 99.7 80.0 - 100.0 fL 01/24/2025 5:09 PM [facility] MCH 33.2(H) 27.0 - 31.0 pg 01/24/2025 5:09 PM [facility] MCHC 33.2 32.0 - 36.0 g/dL 01/24/2025 5:09 PM [facility] MPV 10.3 8.4 - 12.0 fL 01/24/2025 5:09 PM [facility] RDW-CV 13.2 11.5 - 14.5 % 01/24/2025 5:09 PM [facility] PLT 350 150 - 450 K/uL 01/24/2025 5:09 PM [facility] Neutrophils 78.5 % 01/24/2025 5:09 PM [facility] Lymphocytes 13.8 % 01/24/2025 5:09 PM [facility] Monocytes 6.6 % 01/24/2025 5:09 PM [facility] Eosinophils 0.3 % 01/24/2025 5:09 PM [facility] Basophils 0.6 % 01/24/2025 5:09 PM [facility] Imm Grans 0.2 % 01/24/2025 5:09 PM [facility] NRBC 0.0 <=0.0 /100 WBCs 01/24/2025 5:09 PM [facility] Absolute Neutrophils 7.40 1.92 - 7.60 K/uL 01/24/2025 5:09 PM [facility] Absolute Lymphocytes 1.30 0.72 - 4.10 K/uL 01/24/2025 5:09 PM [facility] Absolute Monocytes 0.62 0.16 - 1.10 K/uL 01/24/2025 5:09 PM [facility] Absolute Eosinophils 0.03 0.00 - 0.50 K/uL 01/24/2025 5:09 PM [facility] Absolute Basophils 0.06 0.00 - 0.15 K/uL 01/24/2025 5:09 PM [facility] Absolute Imm Grans 0.02 0.00 - 0.09 K/uL 01/24/2025 5:09 PM [facility] Absolute NRBC 0.00 <=0.00 K cells/uL 01/24/2025 5:09 PM [facility] Absolute Neutrophils 7.40 1.92 - 7.60 K/uL 01/24/2025 5:09 PM [facility] Comment:Automated cell count . Manual ANC may differ if performed. Diff Type Auto 01/24/2025 5:09 PM [facility] Blood (Blood) Venipuncture / Unknown 01/24/2025 4:56 PM EST 01/24/2025 5:06 PM EST us Jaswinder Lopez MD LAB BLOOD BKR ORDERABLES Final Result [address] [address] * Hepatic Panel (LFTs) (01/24/2025 4:56 PM EST) AST 22 <33 U/L 01/24/2025 5:47 PM [facility] ALT 16 <34 U/L 01/24/2025 5:47 PM [facility] Alkaline Phosphatase 89 40 - 130 U/L 01/24/2025 5:47 PM [facility] Bilirubin, Total 0.2 0.0 - 1.2 mg/dL 01/24/2025 5:47 PM [facility] Bilirubin, Direct 0.1 0.0 - 0.3 mg/dL 01/24/2025 5:47 PM [facility] Total Protein 7.3 6.4 - 8.3 g/dL 01/24/2025 5:47 PM [facility] Albumin 4.4 3.5 - 5.2 g/dL 01/24/2025 5:47 PM [facility] Globulin 2.9 1.9 - 4.1 g/dL 01/24/2025 5:47 PM [facility] Blood (Blood) Venipuncture / Unknown 01/24/2025 4:56 PM EST 01/24/2025 5:06 PM EST us Jaswinder Lopez MD LAB BLOOD BKR ORDERABLES Final Result [address] [address] * Acetaminophen Level (01/24/2025 4:56 PM EST) Acetaminophen <5.0 <=25.0 ug/mL 01/24/2025 6:40 PM EST [facility] Blood (Blood) Venipuncture / Unknown 01/24/2025 4:56 PM EST 01/24/2025 5:06 PM EST us Jaswinder Lopez MD LAB BLOOD BKR ORDERABLES Final Result Performing Organization Address City/[facility]/ZIP Co de Phone Number [address] [address] * (ABNORMAL) Salicylates (01/24/2025 4:56 PM EST) Salicylates <0.3(L) 10.0 - 25.0 mg/dL 01/24/2025 6:40 PM [facility] Blood (Blood) Venipuncture / Unknown 01/24/2025 4:56 PM EST 01/24/2025 5:06 PM EST us Jaswinder Lopez MD LAB BLOOD BKR ORDERABLES Final Result Performing Organization Address City/[facility]/ZIP Co de Phone Number [address] [address] * (ABNORMAL) Basic Metabolic Panel (BMP) (01/24/2025 4:56 PM EST) Sodium 139 136 - 145 mmol/L 01/24/2025 5:47 PM [facility] Potassium 4.5 3.4 - 5.1 mmol/L 01/24/2025 5:47 PM [facility] Chloride 103 98 - 107 mmol/L 01/24/2025 5:47 PM [facility] CO2 22 20 - 31 mmol/L 01/24/2025 5:47 PM [facility] Anion Gap 14 3 - 17 mmol/L 01/24/2025 5:47 PM [facility] BUN 13 6 - 23 mg/dL 01/24/2025 5:47 PM [facility] Creatinine 0.70 0.50 - 1.00 mg/dL 01/24/2025 5:47 PM EST [facility] eGFR 92 >59 mL/min/1.7 3m2 01/24/2025 5:47 PM EST [facility] Comment:Estimated glomerular filtration rate calculated using the CKD-EPI refit equation. Glucose 107(H) 70 - 99 mg/dL 01/24/2025 5:47 PM EST [facility] Calcium 9.8 8.5 - 10.5 mg/dL 01/24/2025 5:47 PM EST [facility] Blood (Blood) Venipuncture / Unknown 01/24/2025 4:56 PM EST 01/24/2025 5:06 PM EST Jaswinder Lopez MD LAB BLOOD BKR ORDERABLES Final Result [facility] [address] [place] [address] from Last 3 Months Insurance MEDICARE PART A & B [facility] MEDICARE SUPPLEMENT MEDICARE PART A & B [id number] [place] [address] MEDICARE SUPPLEMENT MEDICARE PART A & B [facility] MEDICARE SUPPLEMENT MEDICARE PART A & B MEDICARE SUPPLEMENT MEDICARE PART A & B [facility] MEDICARE SUPPLEMENT MEDICARE PART A & B [facility] MEDICARE SUPPLEMENT Care Teams Sports Internship Relationship Specialty Start Date End Date Sophie Duke MD [address] [place] [address] PCP - General Internal Medicine 07/15/22 Additional Source Comments The information contained in this document represents components of the legal health record. It is not the complete legal health record.[facility]
--- OUTSIDE RECORDS SUMMARY | 2025-02-04 15:28 | XMS_ITS | Encounter Summary ---
Author Organization [facility] Address [address] [facility] [address] [place] [address] Phone Care Team Providers Care Gasket Inspector Name Role Phone Pcp, Not Required Primary Care Provider Sophie De Leon MD Primary Care Provider Encounter Details Date Type Department Care Team (Late st Contact Info) Description 07/10/2022 Procedure Pass [facility], Jay [address] [facility], 2nd Floor, [address] [place] [address] Social History Tobacco Use Types Packs/Day Years [...] on filedocumented in this encounter Care Teams Gasket Inspector Relationship Specialty Start Date End Date Pcp, Not Required [address] [place] [address] PCP - General 03/16/22 07/14/22 Sophie Duke MD [address] [facility] [place] [address] PCP - General Internal Medicine 07/15/22 documented as of this encounter Additional Source Comments The information contained in this document represents components of the legal health record. It is not the complete legal health record.[facility]
--- OUTSIDE RECORDS SUMMARY | 2025-02-04 15:28 | XMS_ITS | Encounter Summary ---
Author Organization [facility] Address [address] [place] [address] [place] [address] Phone Care Team Providers Care Clothing Designer Name Role Phone Pcp, Not Required Primary Care Provider Sophie De Leon MD Primary Care Provider Encounter Details Date Type Department Care Team (Late st Contact Info) Description 07/10/2022 Procedure Pass [facility] Cardiac US [address] [place] [address] Social History Tobacco Use Types Packs/Day Years [...] on filedocumented in this encounter Care Teams Clothing Designer Relationship Specialty Start Date End Date Pcp, Not Required [address] [place] [address] PCP - General 03/16/22 07/14/22 Sophie Duke MD [facility] [place] [address] PCP - General Internal Medicine 07/15/22 documented as of this encounter Additional Source Comments The information contained in this document represents components of the legal health record. It is not the complete legal health record.[facility]
== END ==
LOC: HO.NUCMED 07:56
PROVIDERS: PCP Internal Medicine; Visit Provider Nurse Practitioner Family
DX: R68.81 Early satiety (principal)
CPT/HCPCS: 78264; A9541

== ENCOUNTER → 2025-02-04 07:57 | Outpatient (BNV) | payer MEDICARE, SELFPAY | PROVIDERS: PCP Internal Medicine; Visit Provider Radiology Diagnostic Radiology | DX: R68.81 Early satiety (principal) | CPT/HCPCS: 78264 ==

== ENCOUNTER 2025-03-03 10:55 | Outpatient (AMB) | payer MEDICARE, SELFPAY ==
--- NOTE | 2025-03-03 10:59 | MHC.OFFVIS ---
Vital Signs 03/03/25 11:01 Height 5 ft 3 in Weight 103 lb BMI 18.2 BP 118/66 Blood Pressure Location Rt brachial Position Sitting Pulse 68 Pulse Source Pulse Oximeter Pulse Oximetry (%) 94 Oxygen Delivery Method Room Air Intake Visit Reasons: barnhart's Intake Note: Est pt for mgmt of Barnhart's. Discuss EGD. CC; C/O dysphagia persistence, early satiety, and lack of appetite. Pt states that she unfortunately had to cancel her EGD on account of her mother passing the day of the procedure. Spoke with provider and surgical schedulers, we will attempt to book this procedure while she is here in the office today. 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 Will hold famotidine for now and she can start taking sucralfate. May take it at bedtime and increase to 2 times a day if symptoms are worse in the afternoon. She will be sent for upper GI series. Will check transglutaminase, lipase, vitamin B12, folate, vitamin-D level. Patient will be sent for gastric emptying study as well. Patient reports early satiety. I will see her in 6-8 weeks. Patient was encouraged to call our office if her symptoms will get worse. She is agreeable to current plan of care and verbalizes understanding of instructions. She was given the opportunity to ask questions and all questions answered ? Thank you for allowing me to participate in her care Orders Lipase 12/09/24 R10.9 Vitamin B12 and Folate 12/09/24 R19.7 Vitamin D 25-OH (D2 and D3) 12/09/24 E55.9 Transglutaminase IgA 12/09/24 R10.9 NM gastric emptying study 12/09/24 R68.81 Referrals GI Procedure Notification Z12.11 New esomeprazole magnesium (Nexium) 20 mg PO BID 60 caps 4RF sucralfate 1 g PO BEDTIME 30 tabs 4RF R19.7 Discontinued omeprazole Discontinued Reason: Doctor's Order 20 mg PO BID 60 caps 4RF K21.9 Evenity Discontinued Reason: Doctor's Order 210 mg (2.34 mL) subcut QMONTH 2.34 mL 11RF NS abaloparatide inject into abdomen; do not inject within 2 inches of belly button/navel; rotate sites Discontinued Reason: Doctor's Order 80 mcg (0.04 mL) subcut DAILY 1.56 mL 12RF On Hold famotidine (Pepcid) Hold Comment: Doctor's Order 20 mg PO BEDTIME 30 tabs 3RF K21.9 TODAY'S VISIT Patient is here today for requested visit. Patient missed her endoscopy as on the same day where her endoscopies will schedule her mother . Patient was unable to call back and reschedule. She has been going on there are some stress. Currently is taking Nexium twice a day and famotidine at bedtime. She continues to have occasional dysphagia and dyspepsia with acid reflux. Was diagnosed with Barnhart's on and last endoscopy. Patient denies any nausea or vomiting. Patient had gastric emptying study that was normal. Patient is trying to eat smaller meals and more often. Trying to eat slow and she her food well. Patient reports that she is moving her bowels without any issues. Denies melena, hematochezia. Weight unchanged since last visit. Spoke with plant and instrument engineer about patient's missed procedure and they are booking patient as we speak [facility] Medical History Difficulty swallowing Barnhart's esophagus determined by endoscopy Achalasia, esophageal Diverticulosis Memory change Vitamin D deficiency Osteoporosis Colon cancer screening Depression Thinning hair Shortness of breath on exertion Surgical History H/O colonoscopy Hx of right knee surgery History of repair of left hip joint Hx of appendectomy Family History Father CAD (coronary artery disease) Mother Essential hypertension Osteoporosis Paternal Aunt Depression Sister Essential hypertension Osteoporosis Family/Other Breast cancer Other Mental health disorder Social History Housing: Apartment Are you a primary nurse behavioral health care to a significant other at home: No Do you presently have visiting nurse or other home services: No Alcohol intake: current Alcohol intake frequency: holidays/special occasions only Patient Tobacco Use Status: Former Tobacco user Tobacco use type: Cigarette Years Smoked: 15 e-Cigarette/Vaping Use: Never Used Second Hand Smoke Exposure: No service: No Current occupational status: employed and retired Cognitive needs: No Hearing needs: No Vision needs: No Female Reproductive History Menstrual Age of Menarche: 9 Review of Systems Const Denies weight gain and Denies weight loss ENT Reports no additional complaints, Reports dysphagia and Denies odynophagia Card Reports no additional complaints Resp Reports no additional complaints GI Reports abdominal pain, Denies belching, Denies melena, Denies bloating, Denies change in bowel habits, Reports dysphagia, Denies excessive flatus, Denies dyspepsia, Reports heartburn, Denies diarrhea, Denies loose stools, Denies nausea, Denies odynophagia and Denies vomiting Reports no additional complaints Musc Reports no additional complaints Neuro Reports no additional complaints Psych Reports no additional complaints Endo Reports no additional complaints Physical Exam Vital Signs: Last Vital Signs Pulse 68 03/03/25 11:01 BP 118/66 03/03/25 11:01 Pulse Ox 94 03/03/25 11:01 Oxygen Delivery Method Room Air 03/03/25 11:01 BMI result Body Mass Index 18.2 Const General: healthy appearing, no acute distress and well developed Nutritional Appearance: well nourished Orientation/consciousness: patient oriented x3 Resp Effort & Inspection: normal respiratory effort, able to speak in complete sentences, no tracheal deviation and symmetric chest movement Auscultation: clear to auscultation bilaterally Cardio Rate: regular rate GI Inspection: Yes normal to inspection and No distended Palpation (GI): Soft to palpation, not firm, nontender and No hepatosplenomegaly present Auscultation: normal bowel sounds General: Yes no CVA tenderness Back/Spine/Pelvis Back: no CVA tenderness Skin General skin exam: elasticity normal, turgor normal and dry skin Neuro General: patient oriented x3 Psych Appearance: grossly normal Mental Status: mental status grossly normal Results Reviewed Results Reviewed: GES FINDINGS: There is visualization of activity in the stomach immediately post ingestion. As the study progresses, there is clearance of activity from the stomach and visualization of progressively increasing small bowel activity. By the end of the study, there is almost no retention noted in the stomach. Retention in the stomach at each time interval was: 1 hour 57% (normal 37%-90%) 2 hours 19% (normal 30%-60%) 3 hours 5% 4 hours 1% (normal 0%-10%) NM/NM gastric emptying study IMPRESSION: Normal 4-hour solid food gastric emptying study. Assessment & Plan Assessment & Plan (1) Difficulty swallowing: Code(s): R13.10 - Dysphagia, unspecified Category: Medical Qualifiers: Dysphagia type: unspecified Qualified Code(s): R13.10 - Dysphagia, unspecified (2) Barnhart's esophagus determined by endoscopy: Code(s): K22.70 - Barnhart's esophagus without dysplasia Category: Medical (3) Postprandial epigastric pain: Code(s): R10.13 - Epigastric pain (4) Early satiety: Code(s): R68.81 - Early satiety Plan Negative GES. Patient will continue taking Nexium twice a day and famotidine at bedtime. If famotidine not helping patient can try the sucralfate. Patient will be scheduled for upper endoscopy. Avoid dietary triggers and late night snacking. Staying upright for minimum 3 hours after meals discussed with patient. Patient will return after the procedure. Patient was encouraged to call us if her symptoms will get worse or she will experience any additional symptoms. Patient is agreeable to current plan of care and verbalizes understanding of instructions. She was given the opportunity to ask questions and all questions answered. Thank you for allowing me to participate in her care Coding Level of Care Code Est Pt Level 4 (07384) Add On Problem Visit Only Diagnoses Dysphagia, unspecified type R13.10 Dysphagia type: unspecified Barnhart's esophagus determined by endoscopy K22.70 Postprandial epigastric pain R10.13 Early satiety R68.81 Time Spent (min) 35 Comment 25 minutes spent with patient and additional 15 minutes spent reviewing her records
[2025-03-03 11:01] VITALS: BP 118/66; PULSE 68; O2SAT 94; BMI 18.2
--- OUTSIDE RECORDS SUMMARY | 2025-03-03 14:14 | XMS_ITS | Clinical Summary ---
Author Organization [facility] Address [address] [place] [address] [place] [id number] Phone Care Team Providers Care Transition Rn Name Role Phone Sophie Duke MD Primary [...] 7:39 PM EST Emergency [facility] [address] [place] [address] Discharge Disposition: Home or Self Care from [...] Ethanol, Blood (01/24/2025 4:56 PM EST) Pathologist [facility] Ethanol 51(H) Negative; <11 mg/dL 01/24/2025 5:47 PM [facility] Blood (Blood) Venipuncture / Unknown 01/24/2025 4:56 PM EST 01/24/2025 5:06 PM EST us Jaswinder Lopez MD LAB BLOOD BKR ORDERABLES Final Result Performing Organization Address City/State/[facility] Co de Phone Number [address] [address] * (ABNORMAL) CBC and Differential (01/24/2025 4:56 PM EST) [facility] WBC 9.43 4.00 - 11.00 K/uL 01/24/2025 5:09 PM [facility] RBC 3.95(L) 4.00 - 5.20 M/uL 01/24/2025 5:09 PM [facility] Hemoglobin 13.1 12.0 - 16.0 g/dL 01/24/2025 5:09 PM [facility] Hematocrit 39.4 36.0 - 46.0 % 01/24/2025 5:09 PM [facility] MCV 99.7 80.0 - 100.0 fL 01/24/2025 5:09 PM [facility] MCH 33.2(H) 27.0 - 31.0 pg 01/24/2025 5:09 PM [facility] MCHC 33.2 32.0 - 36.0 g/dL 01/24/2025 5:09 PM [facility] MPV 10.3 8.4 - 12.0 fL 01/24/2025 5:09 PM [facility] RDW-CV 13.2 11.5 - 14.5 % 01/24/2025 5:09 PM [facility] PLT 350 150 - 450 K/uL 01/24/2025 5:09 PM [facility] Neutrophils 78.5 % 01/24/2025 5:09 PM [facility] Lymphocytes 13.8 % 01/24/2025 5:09 PM [facility] Monocytes 6.6 % 01/24/2025 5:09 PM [facility] Eosinophils 0.3 % 01/24/2025 5:09 PM [facility] Basophils 0.6 % 01/24/2025 5:09 PM [facility] Imm Grans 0.2 % 01/24/2025 5:09 PM [facility] NRBC 0.0 <=0.0 /100 WBCs 01/24/2025 5:09 PM [facility] Absolute Neutrophils 7.40 1.92 - 7.60 K/uL 01/24/2025 5:09 PM [facility] Absolute Lymphocytes 1.30 0.72 - 4.10 K/uL 01/24/2025 5:09 PM [facility] Absolute Monocytes 0.62 0.16 - 1.10 K/uL 01/24/2025 5:09 PM [facility] Absolute Eosinophils 0.03 0.00 - 0.50 K/uL 01/24/2025 5:09 PM [facility] Absolute Basophils 0.06 0.00 - 0.15 K/uL 01/24/2025 5:09 PM [facility] Absolute Imm Grans 0.02 0.00 - 0.09 K/uL 01/24/2025 5:09 PM [facility] Absolute NRBC 0.00 <=0.00 K cells/uL 01/24/2025 5:09 PM [facility] Absolute Neutrophils 7.40 1.92 - 7.60 K/uL 01/24/2025 5:09 PM [facility] Comment:Automated cell count . Manual ANC may differ if performed. Diff Type Auto 01/24/2025 5:09 PM [facility] Blood (Blood) Venipuncture / Unknown 01/24/2025 4:56 PM EST 01/24/2025 5:06 PM EST us Jaswinder Lopez MD LAB BLOOD BKR ORDERABLES Final Result Performing Organization Address City/[facility]/ZIP Co de Phone Number [address] [address] * Hepatic Panel (LFTs) (01/24/2025 4:56 PM EST) AST 22 <33 U/L 01/24/2025 5:47 PM EST [facility] ALT 16 <34 U/L 01/24/2025 5:47 PM [facility] Alkaline Phosphatase 89 40 - 130 U/L 01/24/2025 5:47 PM [facility] Bilirubin, Total 0.2 0.0 - 1.2 mg/dL 01/24/2025 5:47 PM [facility] Bilirubin, Direct 0.1 0.0 - 0.3 mg/dL 01/24/2025 5:47 PM [facility] Total Protein 7.3 6.4 - 8.3 g/dL 01/24/2025 5:47 PM [facility] Albumin 4.4 3.5 - 5.2 g/dL 01/24/2025 5:47 PM [facility] Globulin 2.9 1.9 - 4.1 g/dL 01/24/2025 5:47 PM [facility] Blood (Blood) Venipuncture / Unknown 01/24/2025 4:56 PM EST 01/24/2025 5:06 PM EST us Jaswinder Lopez MD LAB BLOOD BKR ORDERABLES Final Result [address] [address] * Acetaminophen Level (01/24/2025 4:56 PM EST) Acetaminophen <5.0 <=25.0 ug/mL 01/24/2025 6:40 PM EST [facility] Blood (Blood) Venipuncture / Unknown 01/24/2025 4:56 PM EST 01/24/2025 5:06 PM EST Jaswinder Lopez MD LAB BLOOD BKR ORDERABLES Final Result Performing Organization Address [facility]/ZIP Co de Phone Number [address] [address] * (ABNORMAL) Salicylates (01/24/2025 4:56 PM EST) Salicylates <0.3(L) 10.0 - 25.0 mg/dL 01/24/2025 6:40 PM [facility] Blood (Blood) Venipuncture / Unknown 01/24/2025 4:56 PM EST 01/24/2025 5:06 PM EST Jaswinder Lopez MD LAB BLOOD BKR ORDERABLES Final Result Performing Organization Address [facility]/ZIP Co de Phone Number [address] [address] * (ABNORMAL) Basic Metabolic Panel (BMP) (01/24/2025 4:56 PM EST) Sodium 139 136 - 145 mmol/L 01/24/2025 5:47 PM [facility] Potassium 4.5 3.4 - 5.1 mmol/L 01/24/2025 5:47 PM [facility] Chloride 103 98 - 107 mmol/L 01/24/2025 5:47 PM [facility] CO2 22 20 - 31 mmol/L 01/24/2025 5:47 PM [facility] Anion Gap 14 3 - 17 mmol/L 01/24/2025 5:47 PM [facility] BUN 13 6 - 23 mg/dL 01/24/2025 5:47 PM [facility] Creatinine 0.70 0.50 - 1.00 mg/dL 01/24/2025 5:47 PM [facility] eGFR 92 >59 mL/min/1.7 3m2 01/24/2025 5:47 PM EST [facility] Comment:Estimated glomerular filtration rate calculated using the CKD-EPI refit equation. Glucose 107(H) 70 - 99 mg/dL 01/24/2025 5:47 PM EST [facility] Calcium 9.8 8.5 - 10.5 mg/dL 01/24/2025 5:47 PM EST [facility] Blood (Blood) Venipuncture / Unknown 01/24/2025 4:56 PM EST 01/24/2025 5:06 PM EST us Jaswinder Lopez MD LAB BLOOD BKR ORDERABLES Final Result [address] [address] from Last 3 Months Insurance MEDICARE PART A & B [facility] MEDICARE SUPPLEMENT MEDICARE PART A & B [id number] [place] [address] MEDICARE SUPPLEMENT MEDICARE PART A & B [facility] MEDICARE SUPPLEMENT MEDICARE PART A & [place] [address] MEDICARE SUPPLEMENT MEDICARE PART A & B [facility] MEDICARE SUPPLEMENT MEDICARE PART A & B [facility] MEDICARE SUPPLEMENT Care Teams Transition Rn Relationship Specialty Start Date End Date Sophie Duke MD [address] [facility] [place] [address] PCP - General Internal Medicine 07/15/22 Additional Source Comments The information contained in this document represents components of the legal health record. It is not the complete legal health record.[facility]
--- OUTSIDE RECORDS SUMMARY | 2025-03-03 14:14 | XMS_ITS | Patient Health Record ---
Author Organization [facility] Address [address] [place] [id number] Care Team Providers Care It Systems Analyst Name Role Phone Shen Mitchell Jr Reason For Referral No Information Plan Of Treatment No Information
--- OUTSIDE RECORDS SUMMARY | 2025-03-03 14:14 | XMS_ITS | Encounter Summary ---
Author Organization [facility] Address [address] [place] [phone] Phone Care Team Providers Care Examination Proctor Name Role Phone Pcp, Not Required Primary Care Provider Sophie De Leon MD Primary Care Provider Encounter Details Date Type Department Care Team (Late st Contact Info) Description 07/10/2022 Procedure Pass [facility] US [address] [place] [address] Social History Tobacco Use Types Packs/Day Years [...] on filedocumented in this encounter Care Teams Examination Proctor Relationship Specialty Start Date End Date Pcp, Not Required PCP - General 03/16/22 07/14/22 Sophie Duke MD [address] [facility] [address] PCP - General Internal Medicine 07/15/22 documented as of this encounter Additional Source Comments The information contained in this document represents components of the legal health record. It is not the complete legal health record.[facility]
--- OUTSIDE RECORDS SUMMARY | 2025-03-03 14:14 | XMS_ITS | Encounter Summary ---
Author Organization [facility] Address [address] [facility] [address] [place] [phone] Phone Care Team Providers Care Business Representative Name Role Phone Pcp, Not Required Primary Care Provider Sophie De Leon MD Primary Care Provider Encounter Details Date Type Department Care Team (Late st Contact Info) Description 07/10/2022 Procedure Pass [facility], [address] [facility], [address] [place] [address] Social History Tobacco Use Types Packs/Day Years [...] on filedocumented in this encounter Care Teams Business Representative Relationship Specialty Start Date End Date Pcp, Not Required PCP - General 03/16/22 07/14/22 Sophie Duke MD [facility] [place] [address] PCP - General Internal Medicine 07/15/22 documented as of this encounter Additional Source Comments The information contained in this document represents components of the legal health record. It is not the complete legal health record.[facility]
== END 2025-03-03 12:38 | disposition home or self-care (01) ==
LOC: HO.HGI 10:56
PROVIDERS: PCP Internal Medicine; Visit Provider Nurse Practitioner Family
DX: R13.10 Dysphagia, unspecified (principal); K22.70 Barrett's esophagus without dysplasia; R10.13 Epigastric pain; R68.81 Early satiety
CPT/HCPCS: 99214; G2211

== ENCOUNTER → 2025-03-03 10:55 | Outpatient (BNVA) | payer MEDICARE, SELFPAY | PROVIDERS: PCP Internal Medicine; Visit Provider Nurse Practitioner Family | DX: R13.10 Dysphagia, unspecified (principal); K22.70 Barrett's esophagus without dysplasia; R10.13 Epigastric pain; R68.81 Early satiety | CPT/HCPCS: 99212 ==

== ENCOUNTER 2025-03-10 08:02 | Outpatient (REF) | payer MEDICARE, SELFPAY ==
--- NOTE | ~2025-03-10 | MM_ITS ---
EXAMINATION: DXA BONE DENSITY AXIAL HISTORY: M81.0 - Age-related osteoporosis without current pathological fracture TECHNIQUE: Peg Bandwidth Dual energy absorptiometry (DEXA) of the lumbar spine, total right hip, and femoral neck was performed. COMPARISON: Comparison is made with the prior examination dated 09/20/2022. FINDINGS: The bone mineral density of the lumbar spine is 0.999 g/cm2, corresponding to a T-score of -1.7, and a Z-score of 0.7. This is indicative of osteopenia. This represents a BMD change of 2.3% compared to the prior exam. This is not statistically significant. The bone mineral density of the right total hip is 0.645 g/cm2, corresponding to a T-score of -2.9, and a Z-score of -0.8. This is indicative of osteoporosis. This represents a BMD change of -2.4% compared to the prior exam. This is not statistically significant. The bone mineral density of the right femoral neck is 0.784 g/cm2, corresponding to a T-score of -1.8, and a Z-score of 0.4. This is indicative of osteopenia. This represents a BMD change of 15.0% compared to the prior exam. MM/XR DEXA axial skeleton IMPRESSION: Based on bone mineral density, and according to World Health Organization (WHO) criteria, the diagnosis is consistent with osteoporosis. Statistically, 68% of repeat scans fall within 1 SD (+/- 0.010 g/cm2 for AP spine L1-L4) and 1 SD (+/- 0.012 g/cm2 for femur total) FRAX is a trademark of the [employer]'s [place] for Metabolic Bone Disease, a World Health Organization (WHO) Collaborating Center. Electronically signed by: Roberto Alvarez MD 03/10/2025 08:40 AM [facility]
--- OUTSIDE RECORDS SUMMARY | 2025-03-10 08:05 | XMS_ITS | Clinical Summary ---
Author Organization [facility] Address [address] [place] [address] [place] [phone] Phone Care Team Providers Care Cableway Operator Name Role Phone Sophie Duke MD Primary [...] 7:39 PM EST Emergency [facility] [address] [place] [address] Discharge Disposition: Home or Self Care from [...] Ethanol, Blood (01/24/2025 4:56 PM EST) Pathologist [facility] Ethanol 51(H) Negative; <11 mg/dL 01/24/2025 5:47 PM [facility] Blood (Blood) Venipuncture / Unknown 01/24/2025 4:56 PM EST 01/24/2025 5:06 PM EST us Jaswinder Lopez MD LAB BLOOD BKR ORDERABLES Final Result Performing Organization Address City/State/[facility] Co de Phone Number [address] [address] * (ABNORMAL) CBC and Differential (01/24/2025 4:56 PM EST) [facility] WBC 9.43 4.00 - 11.00 K/uL 01/24/2025 5:09 PM [facility] RBC 3.95(L) 4.00 - 5.20 M/uL 01/24/2025 5:09 PM [facility] Hemoglobin 13.1 12.0 - 16.0 g/dL 01/24/2025 5:09 PM [facility] Hematocrit 39.4 36.0 - 46.0 % 01/24/2025 5:09 PM [facility] MCV 99.7 80.0 - 100.0 fL 01/24/2025 5:09 PM [facility] MCH 33.2(H) 27.0 - 31.0 pg 01/24/2025 5:09 PM [facility] MCHC 33.2 32.0 - 36.0 g/dL 01/24/2025 5:09 PM [facility] MPV 10.3 8.4 - 12.0 fL 01/24/2025 5:09 PM [facility] RDW-CV 13.2 11.5 - 14.5 % 01/24/2025 5:09 PM [facility] PLT 350 150 - 450 K/uL 01/24/2025 5:09 PM [facility] Neutrophils 78.5 % 01/24/2025 5:09 PM [facility] Lymphocytes 13.8 % 01/24/2025 5:09 PM [facility] Monocytes 6.6 % 01/24/2025 5:09 PM [facility] Eosinophils 0.3 % 01/24/2025 5:09 PM [facility] Basophils 0.6 % 01/24/2025 5:09 PM [facility] Imm Grans 0.2 % 01/24/2025 5:09 PM [facility] NRBC 0.0 <=0.0 /100 WBCs 01/24/2025 5:09 PM [facility] Absolute Neutrophils 7.40 1.92 - 7.60 K/uL 01/24/2025 5:09 PM [facility] Absolute Lymphocytes 1.30 0.72 - 4.10 K/uL 01/24/2025 5:09 PM [facility] Absolute Monocytes 0.62 0.16 - 1.10 K/uL 01/24/2025 5:09 PM [facility] Absolute Eosinophils 0.03 0.00 - 0.50 K/uL 01/24/2025 5:09 PM [facility] Absolute Basophils 0.06 0.00 - 0.15 K/uL 01/24/2025 5:09 PM [facility] Absolute Imm Grans 0.02 0.00 - 0.09 K/uL 01/24/2025 5:09 PM [facility] Absolute NRBC 0.00 <=0.00 K cells/uL 01/24/2025 5:09 PM [facility] Absolute Neutrophils 7.40 1.92 - 7.60 K/uL 01/24/2025 5:09 PM [facility] Comment:Automated cell count . Manual ANC may differ if performed. Diff Type Auto 01/24/2025 5:09 PM [facility] Blood (Blood) Venipuncture / Unknown 01/24/2025 4:56 PM EST 01/24/2025 5:06 PM EST us Jaswinder Lopez MD LAB BLOOD BKR ORDERABLES Final Result Performing Organization Address City/[facility]/ZIP Co de Phone Number [address] [phone] * Hepatic Panel (LFTs) (01/24/2025 4:56 PM EST) AST 22 <33 U/L 01/24/2025 5:47 PM EST [facility] ALT 16 <34 U/L 01/24/2025 5:47 PM [facility] Alkaline Phosphatase 89 40 - 130 U/L 01/24/2025 5:47 PM [facility] Bilirubin, Total 0.2 0.0 - 1.2 mg/dL 01/24/2025 5:47 PM [facility] Bilirubin, Direct 0.1 0.0 - 0.3 mg/dL 01/24/2025 5:47 PM [facility] Total Protein 7.3 6.4 - 8.3 g/dL 01/24/2025 5:47 PM [facility] Albumin 4.4 3.5 - 5.2 g/dL 01/24/2025 5:47 PM [facility] Globulin 2.9 1.9 - 4.1 g/dL 01/24/2025 5:47 PM [facility] Blood (Blood) Venipuncture / Unknown 01/24/2025 4:56 PM EST 01/24/2025 5:06 PM EST us Jaswinder Lopez MD LAB BLOOD BKR ORDERABLES Final Result [address] [address] * Acetaminophen Level (01/24/2025 4:56 PM EST) Acetaminophen <5.0 <=25.0 ug/mL 01/24/2025 6:40 PM EST [facility] Blood (Blood) Venipuncture / Unknown 01/24/2025 4:56 PM EST 01/24/2025 5:06 PM EST Jaswinder Lopez MD LAB BLOOD BKR ORDERABLES Final Result Performing Organization Address [facility]/ZIP Co de Phone Number [address] [address] * (ABNORMAL) Salicylates (01/24/2025 4:56 PM EST) Salicylates <0.3(L) 10.0 - 25.0 mg/dL 01/24/2025 6:40 PM [facility] Blood (Blood) Venipuncture / Unknown 01/24/2025 4:56 PM EST 01/24/2025 5:06 PM EST Jaswinder Lopez MD LAB BLOOD BKR ORDERABLES Final Result Performing Organization Address [facility]/ZIP Co de Phone Number [address] [address] * (ABNORMAL) Basic Metabolic Panel (BMP) (01/24/2025 4:56 PM EST) Sodium 139 136 - 145 mmol/L 01/24/2025 5:47 PM [facility] Potassium 4.5 3.4 - 5.1 mmol/L 01/24/2025 5:47 PM [facility] Chloride 103 98 - 107 mmol/L 01/24/2025 5:47 PM [facility] CO2 22 20 - 31 mmol/L 01/24/2025 5:47 PM [facility] Anion Gap 14 3 - 17 mmol/L 01/24/2025 5:47 PM [facility] BUN 13 6 - 23 mg/dL 01/24/2025 5:47 PM [facility] Creatinine 0.70 0.50 - 1.00 mg/dL 01/24/2025 5:47 PM [facility] eGFR 92 >59 mL/min/1.7 3m2 01/24/2025 5:47 PM EST [facility] Comment:Estimated glomerular filtration rate calculated using the CKD-EPI refit equation. Glucose 107(H) 70 - 99 mg/dL 01/24/2025 5:47 PM EST [facility] Calcium 9.8 8.5 - 10.5 mg/dL 01/24/2025 5:47 PM EST [facility] Blood (Blood) Venipuncture / Unknown 01/24/2025 4:56 PM EST 01/24/2025 5:06 PM EST us Jaswinder Lopez MD LAB BLOOD BKR ORDERABLES Final Result [address] [address] from Last 3 Months Insurance MEDICARE PART A & B [facility] MEDICARE SUPPLEMENT MEDICARE PART A & B [id number] [place] [place] [address] MEDICARE SUPPLEMENT MEDICARE PART A & B [facility] MEDICARE SUPPLEMENT MEDICARE PART A & [place] [address] [place] [address] MEDICARE SUPPLEMENT MEDICARE PART A & B [facility] MEDICARE SUPPLEMENT MEDICARE PART A & B [facility] MEDICARE SUPPLEMENT Care Teams Cableway Operator Relationship Specialty Start Date End Date Sophie Duke MD [address] [place] [address] PCP - General Internal Medicine 07/15/22 Additional Source Comments The information contained in this document represents components of the legal health record. It is not the complete legal health record.[facility]
--- OUTSIDE RECORDS SUMMARY | 2025-03-10 08:05 | XMS_ITS | Encounter Summary ---
Author Organization [facility] Address [address] [facility] [address] [place] [phone] Phone Care Team Providers Care Gas Meter Repairer Name Role Phone Pcp, Not Required Primary Care Provider Sophie De Leon MD Primary Care Provider Encounter Details Date Type Department Care Team (Late st Contact Info) Description 07/10/[address] [facility], [address] [facility], [address]nd Floor, [address] [place] [address] Social History Tobacco Use Types Packs/Day Years [...] on filedocumented in this encounter Care Teams Gas Meter Repairer Relationship Specialty Start Date End Date Pcp, Not Required PCP - General 03/16/22 07/14/22 Sophie Duke MD [facility] [place] [address] PCP - General Internal Medicine 07/15/22 documented as of this encounter Additional Source Comments The information contained in this document represents components of the legal health record. It is not the complete legal health record.[facility]
--- OUTSIDE RECORDS SUMMARY | 2025-03-10 08:06 | XMS_ITS | Encounter Summary ---
Author Organization [facility] Address [address] [facility] [address] [place] [phone] Phone Care Team Providers Care Analyst Sales Name Role Phone Pcp, Not Required Primary Care Provider Sophie De Leon MD Primary Care Provider Encounter Details Date Type Department Care Team (Late st Contact Info) Description 07/10/2022 Procedure Pass [facility] Cardiac Ultrasound [address] [place] [address] Social History Tobacco Use Types Packs/Day Years [...] on filedocumented in this encounter Care Teams Analyst Sales Relationship Specialty Start Date End Date Pcp, Not Required PCP - General 03/16/22 07/14/22 Sophie Duke MD [address] [facility] [place] [address] PCP - General Internal Medicine 07/15/22 documented as of this encounter Additional Source Comments The information contained in this document represents components of the legal health record. It is not the complete legal health record.[facility]
--- OUTSIDE RECORDS SUMMARY | 2025-03-10 08:06 | XMS_ITS | Patient Health Record ---
Author Organization [facility] Address [address] [place] [phone] Care Team Providers Care Photoengraver Apprentice Name Role Phone Shen Mitchell Jr Reason For Referral No Information Plan Of Treatment No Information
== END 2025-03-10 08:03 ==
LOC: HO.MAMMO 08:02
PROVIDERS: PCP Internal Medicine; Visit Provider Internal Medicine Endocrinology, Diabetes & Metabolism
DX: M81.0 Age-related osteoporosis without current pathological fracture (principal)
CPT/HCPCS: 77080

== ENCOUNTER → 2025-03-10 08:15 | Outpatient (BNV) | payer MEDICARE, SELFPAY | PROVIDERS: PCP Internal Medicine; Visit Provider Radiology Diagnostic Radiology | DX: E28.39 Other primary ovarian failure (principal) | CPT/HCPCS: 77080 ==

== ENCOUNTER 2025-03-17 14:39 | Outpatient (AMB) | payer MEDICARE, SELFPAY ==
--- NOTE | 2025-03-17 14:41 | A.OFFVIS_ITS ---
Vital Signs 03/17/25 14:45 Height 5 ft 2.01 in Weight 100 lb 4.965 oz BMI 18.3 BP 102/78 Blood Pressure Location Rt brachial Position Sitting Pulse 71 Pulse Source Pulse Oximeter Pulse Oximetry (%) 96 Oxygen Delivery Method Room Air Intake Visit Reasons: Osteoporosis Intake Note: Patient present today for age-related Osteoporosis. Quality Assurance Supervisor Required: No Accompanied by: Self / Same As Patient Allergies No Known Allergies (No Known Allergies*) Allergy (Verified 03/17/25 14:45) Medication List - Last Reconciled 03/17/25 by Roberto Rodriguez MD bupropion HCl XL 450 mg PO DAILY esomeprazole magnesium (Nexium) 20 mg PO BID famotidine (Pepcid) 20 mg PO BEDTIME Held on 12/09/24. Instructions: Doctor's Order fluoxetine 40 mg PO DAILY pen needle, diabetic (Comfort EZ Pen [place]) As directed sucralfate 1 g PO BEDTIME teriparatide (Forteo) 20 mcg (0.08 mL) subcut DAILY HPI Comments Details: 70 YO Female with PMHx Osteoporosis is seen in F/U for Osteoporosis. First diagnosed in 2020 with her most recent bone density. Has never been treated. After her initial visit with me we completed a biochemical assessment for secondary causes of Osteoporosis. This revealed high normal calcium, but was otherwise WNL. Labs were repeated and were completely WNL. She was recommended for treatment with Evenity, but this was denied by her insurance. Prolia was cost prohibitive for her. She opted for IV Reclast and was scheduled for her first infusion 11/16/2021. She had a vasovagal reaction and was sent to the ED emergently. She did not receive her IV Reclast. She is seen today in F/U. Has 1-2 servings of dietary calcium per day in the form of cottage cheese and hot chocolate. She takes Calcium carbonate 600 mg PO daily. Takes Vitamin D 50,000 IU once a week. Denies ever using PPI, anticoagulant, antiepileptic or glucocorticoid medication. Does weight bearing exercise 7 days per week in the form of walking for 45 minutes at a time. Fracture history: Fracture of the L hip in 2018 after slipping on ice, this was a fragility fracture. 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 Menses was always regular. . She did not breastfeed. Menopause was 43. She used HRT for 1 year afterwards. Denies history of Kidney stones: Family history of Osteoporosis in her Mother and Sister. UTD on dental cleanings and sees dentist every 6 months. No planned upcoming dental work or extractions. DXA dated 09/14/2020: FINDINGS: AP SPINE L1-L3 (excluding L4): The data of L1-L4 has been changed to exclude the L4 vertebral body, because degenerative change at this level may cause overestimation of lumbar spine density. Current: BMD 0.925 g/cm2, Z-score 0.0, T-score -2.0, osteopenia, 9.2% decrease from baseline (<5% change is not significant). Baseline: BMD 1.019 g/cm2. RIGHT FEMUR, NECK: Current: BMD 0.625 g/cm2, Z-score -1.1, T-score -3.0, osteoporosis. Baseline: BMD 0.795 g/cm2. RIGHT FEMUR, TOTAL: Current: BMD 0.643 g/cm2, Z-score -1.3, T-score -2.9, osteoporosis, 22.5% decrease from baseline (<5% change is not significant). Baseline: BMD 0.830 g/cm2. Labs: Laboratory Tests 05/08/22 05/08/22 05/09/22 08:10 08:10 07:45 Sodium 138 Potassium 4.9 Creatinine 0.75 Estimated GFR > 60 N-Telopeptide X-linked 68 25-OH Vitamin D Total 46.0 PTH Intact 24 Calcium (PTH Intact) 9.8 Repeat DEXA 10/10/2022 FINDINGS: RIGHT FEMUR, NECK: Current: BMD 0.682 g/cm2, Z-score -0.5, T-score -2.6, osteoporosis. Prior: BMD 0.625 g/cm2. Baseline: BMD 0.795 g/cm2. RIGHT FEMUR, TOTAL: Current: BMD 0.661 g/cm2, Z-score -0.9, T-score -2.7, osteoporosis, 2.8% increase from previous, 20.4% decrease from baseline (<5% change is not significant). Prior: BMD 0.643 g/cm2. Baseline: BMD 0.830 g/cm2. AP SPINE L1-L3 excluding L4. L4 excluded related to increased bony density from degenerative sclerosis. Current: BMD 0.945 g/cm2, Z-score 0.4, T-score minus 1.9, osteopenia, 2.2% increase from previous, 7.3% decrease from baseline (<5% change is not significant). Prior: BMD 0.925 g/cm2. Baseline: BMD 1.019 g/cm2. LEFT FOREARM RADIUS 33%: BMD 0.656 g/cm2, Z-score -0.7, T-score -2.5, osteoporosis. Received 2 nd dose of Reclast . No fx since 2018. Discussed use of anabolic agents last visit The patient is a 69-year-old female presenting for management of osteoporosis and evaluation of treatment options to prevent further fractures. The patient has a history of osteoporosis, which has been previously managed with Reclast, although she only received one or two doses due to issues with reimbursement for Evenity. She has not taken Prolia in the past. The patient experienced a hip fracture in the past, which has increased her risk for future fractures. The patient's bone density remains low, necessitating treatment to enhance bone strength and density. 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 Achalasia, esophageal Diverticulosis Memory change Vitamin D deficiency Osteoporosis Colon cancer screening Depression Thinning hair Shortness of breath on exertion Surgical History H/O colonoscopy Hx of right knee surgery History of repair of left hip joint Hx of appendectomy Family History Father CAD (coronary artery disease) Mother Essential hypertension Osteoporosis Paternal Aunt Depression Sister Essential hypertension Osteoporosis Family/Other Breast cancer Other Mental health disorder Social History Housing: Apartment Are you a primary child care team lead to a significant other at home: No Do you presently have visiting nurse or other home services: No Alcohol intake: current Alcohol intake frequency: holidays/special occasions only Patient Tobacco Use Status: Former Tobacco user Tobacco use type: Cigarette Years Smoked: 15 e-Cigarette/Vaping Use: Never Used Second Hand Smoke Exposure: No service: No Current occupational status: employed and retired Cognitive needs: No Hearing needs: No Vision needs: No Female Reproductive History Menstrual Age of Menarche: 9 Assessment & Plan Assessment & Plan (1) Osteoporosis: Code(s): M81.0 - Age-related osteoporosis without current pathological fracture Category: Medical Qualifiers: Osteoporosis type: age-related Presence of current pathological fracture: without current pathological fracture Qualified Code(s): M81.0 - Age- related osteoporosis without current pathological fracture Plan: This 68-year-old white female with a history of osteoporosis with secondary workup negative. She never received a dose of Reclast and had reaction to it. . Evenity and Forteo was denied and Tymlos had a very high co-pay of a $1000. Recent DEXA done 02/2025 showed stable bone density. Only current option would be to use Prolia Plan is to initiate Prolia 60 mg Q 6 months. We will attempt to get approval through the insurance company further Prolia as patient is a very high risk considering previous hip fracture and very low bone density. Would have been ideal to use anabolic agent 1st but not possible considering insurance hurdles Coding Level of Care Code Est Pt Level 3 (07852) Diagnoses Age-related osteoporosis without current pathological fracture M81.0 Osteoporosis type: age-related Presence of current pathological fracture: without current pathological fracture
[2025-03-17 14:45] VITALS: BP 102/78; PULSE 71; O2SAT 96; BMI 18.3
--- OUTSIDE RECORDS SUMMARY | 2025-03-17 18:18 | XMS_ITS | Patient Health Record ---
Author Organization [facility] Address [address] [place] [phone] Care Team Providers Care Chemical Handler Name Role Phone Shen Mitchell Jr Reason For Referral No Information Plan Of Treatment No Information
--- OUTSIDE RECORDS SUMMARY | 2025-03-17 18:18 | XMS_ITS | Encounter Summary ---
Author Organization [facility] Address [address] [facility] [address] [place] [phone] Phone Care Team Providers Care Edge Cutter Name Role Phone Pcp, Not Required Primary Care Provider Sophie De Leon MD Primary Care Provider Encounter Details Date Type Department Care Team (Late st Contact Info) Description 07/10/2022 Procedure Pass [facility], Jay [address] [facility], 2nd Floor, [address] [place] [address] Social History Tobacco Use Types Packs/Day Years [...] on filedocumented in this encounter Care Teams Edge Cutter Relationship Specialty Start Date End Date Pcp, Not Required PCP - General 03/16/22 07/14/22 Sophie Duke MD [facility] [address] PCP - General Internal Medicine 07/15/22 documented as of this encounter Additional Source Comments The information contained in this document represents components of the legal health record. It is not the complete legal health record.[facility]
--- OUTSIDE RECORDS SUMMARY | 2025-03-17 18:18 | XMS_ITS | Clinical Summary ---
Author Organization [facility] Address [address] [place] [address] [place] [id number] Phone Care Team Providers Care Strapper Operator Name Role Phone Sophie Duke MD [...] 7:39 PM EST Emergency [facility] [address] [place] [address] Discharge Disposition: Home or Self Care from [...] 51(H) Negative; <11 mg/dL 01/24/2025 5:47 PM [facility] Blood (Blood) Venipuncture / Unknown 01/24/2025 4:56 PM EST 01/24/2025 5:06 PM EST us Jaswinder Lopez MD LAB BLOOD BKR ORDERABLES Final Result Performing Organization Address City/State/[facility] Co de Phone Number [address] [address] * (ABNORMAL) CBC and Differential (01/24/2025 4:56 PM EST) [facility] WBC 9.43 4.00 - 11.00 K/uL 01/24/2025 5:09 PM [facility] RBC 3.95(L) 4.00 - 5.20 M/uL 01/24/2025 5:09 PM [facility] Hemoglobin 13.1 12.0 - 16.0 g/dL 01/24/2025 5:09 PM [facility] Hematocrit 39.4 36.0 - 46.0 % 01/24/2025 5:09 PM [facility] MCV 99.7 80.0 - 100.0 fL 01/24/2025 5:09 PM [facility] MCH 33.2(H) 27.0 - 31.0 pg 01/24/2025 5:09 PM [facility] MCHC 33.2 32.0 - 36.0 g/dL 01/24/2025 5:09 PM [facility] MPV 10.3 8.4 - 12.0 fL 01/24/2025 5:09 PM [facility] RDW-CV 13.2 11.5 - 14.5 % 01/24/2025 5:09 PM [facility] PLT 350 150 - 450 K/uL 01/24/2025 5:09 PM [facility] Neutrophils 78.5 % 01/24/2025 5:09 PM [facility] Lymphocytes 13.8 % 01/24/2025 5:09 PM [facility] Monocytes 6.6 % 01/24/2025 5:09 PM [facility] Eosinophils 0.3 % 01/24/2025 5:09 PM [facility] Basophils 0.6 % 01/24/2025 5:09 PM [facility] Imm Grans 0.2 % 01/24/2025 5:09 PM [facility] NRBC 0.0 <=0.0 /100 WBCs 01/24/2025 5:09 PM [facility] Absolute Neutrophils 7.40 1.92 - 7.60 K/uL 01/24/2025 5:09 PM [facility] Absolute Lymphocytes 1.30 0.72 - 4.10 K/uL 01/24/2025 5:09 PM [facility] Absolute Monocytes 0.62 0.16 - 1.10 K/uL 01/24/2025 5:09 PM [facility] Absolute Eosinophils 0.03 0.00 - 0.50 K/uL 01/24/2025 5:09 PM [facility] Absolute Basophils 0.06 0.00 - 0.15 K/uL 01/24/2025 5:09 PM [facility] Absolute Imm Grans 0.02 0.00 - 0.09 K/uL 01/24/2025 5:09 PM [facility] Absolute NRBC 0.00 <=0.00 K cells/uL 01/24/2025 5:09 PM [facility] Absolute Neutrophils 7.40 1.92 - 7.60 K/uL 01/24/2025 5:09 PM [facility] Comment:Automated cell count . Manual ANC may differ if performed. Diff Type Auto 01/24/2025 5:09 PM [facility] Blood (Blood) Venipuncture / Unknown 01/24/2025 4:56 PM EST 01/24/2025 5:06 PM EST us Jaswinder Lopez MD LAB BLOOD BKR ORDERABLES Final Result Performing Organization Address City/[facility]/ZIP Co de Phone Number [address] [address] * Hepatic Panel (LFTs) (01/24/2025 4:56 PM EST) AST 22 <33 U/L 01/24/2025 5:47 PM EST [facility] ALT 16 <34 U/L 01/24/2025 5:47 PM [facility] Alkaline Phosphatase 89 40 - 130 U/L 01/24/2025 5:47 PM [facility] Bilirubin, Total 0.2 0.0 - 1.2 mg/dL 01/24/2025 5:47 PM [facility] Bilirubin, Direct 0.1 0.0 - 0.3 mg/dL 01/24/2025 5:47 PM [facility] Total Protein 7.3 6.4 - 8.3 g/dL 01/24/2025 5:47 PM [facility] Albumin 4.4 3.5 - 5.2 g/dL 01/24/2025 5:47 PM [facility] Globulin 2.9 1.9 - 4.1 g/dL 01/24/2025 5:47 PM [facility] Blood (Blood) Venipuncture / Unknown 01/24/2025 4:56 PM EST 01/24/2025 5:06 PM EST us Jaswinder Lopez MD LAB BLOOD BKR ORDERABLES Final Result [address] [address] * Acetaminophen Level (01/24/2025 4:56 PM EST) Acetaminophen <5.0 <=25.0 ug/mL 01/24/2025 6:40 PM EST [facility] Blood (Blood) Venipuncture / Unknown 01/24/2025 4:56 PM EST 01/24/2025 5:06 PM EST Jaswinder Lopez MD LAB BLOOD BKR ORDERABLES Final Result Performing Organization Address [facility]/ZIP Co de Phone Number [address] [address] * (ABNORMAL) Salicylates (01/24/2025 4:56 PM EST) Salicylates <0.3(L) 10.0 - 25.0 mg/dL 01/24/2025 6:40 PM [facility] Blood (Blood) Venipuncture / Unknown 01/24/2025 4:56 PM EST 01/24/2025 5:06 PM EST Jaswinder Lopez MD LAB BLOOD BKR ORDERABLES Final Result Performing Organization Address [facility]/ZIP Co de Phone Number [address] [address] * (ABNORMAL) Basic Metabolic Panel (BMP) (01/24/2025 4:56 PM EST) Sodium 139 136 - 145 mmol/L 01/24/2025 5:47 PM [facility] Potassium 4.5 3.4 - 5.1 mmol/L 01/24/2025 5:47 PM [facility] Chloride 103 98 - 107 mmol/L 01/24/2025 5:47 PM [facility] CO2 22 20 - 31 mmol/L 01/24/2025 5:47 PM [facility] Anion Gap 14 3 - 17 mmol/L 01/24/2025 5:47 PM [facility] BUN 13 6 - 23 mg/dL 01/24/2025 5:47 PM [facility] Creatinine 0.70 0.50 - 1.00 mg/dL 01/24/2025 5:47 PM [facility] eGFR 92 >59 mL/min/1.7 3m2 01/24/2025 5:47 PM EST [facility] Comment:Estimated glomerular filtration rate calculated using the CKD-EPI refit equation. Glucose 107(H) 70 - 99 mg/dL 01/24/2025 5:47 PM EST [facility] Calcium 9.8 8.5 - 10.5 mg/dL 01/24/2025 5:47 PM EST [facility] Blood (Blood) Venipuncture / Unknown 01/24/2025 4:56 PM EST 01/24/2025 5:06 PM EST us Jaswinder Lopez MD LAB BLOOD BKR ORDERABLES Final Result [address] [address] from Last 3 Months Insurance MEDICARE PART A & B [facility] MEDICARE SUPPLEMENT MEDICARE PART A & B [id number] [place] [address] MEDICARE SUPPLEMENT MEDICARE PART A & B [facility] MEDICARE SUPPLEMENT MEDICARE PART A & [place] [address] [place] [address] MEDICARE SUPPLEMENT MEDICARE PART A & B [facility] MEDICARE SUPPLEMENT MEDICARE PART A & B [facility] MEDICARE SUPPLEMENT Care Teams Strapper Operator Relationship Specialty Start Date End Date Sophie Duke MD [address] [facility] [place] [address] PCP - General Internal Medicine 07/15/22 Additional Source Comments The information contained in this document represents components of the legal health record. It is not the complete legal health record.[facility]
== END 2025-03-17 15:06 | disposition home or self-care (01) ==
LOC: HO.ENCR 14:39
PROVIDERS: PCP Internal Medicine; Visit Provider Internal Medicine Endocrinology, Diabetes & Metabolism
DX: M81.0 Age-related osteoporosis without current pathological fracture (principal)
CPT/HCPCS: 99213

== ENCOUNTER → 2025-03-17 14:39 | Outpatient (BNVA) | payer MEDICARE, SELFPAY | PROVIDERS: PCP Internal Medicine; Visit Provider Internal Medicine Endocrinology, Diabetes & Metabolism | DX: M81.0 Age-related osteoporosis without current pathological fracture (principal) | CPT/HCPCS: 99212 ==